=== PATIENT | female | born 1955 | race African-American/Black ===

== ENCOUNTER 2017-07-05 07:55 | Inpatient (IN) ==
[2017-07-05] MEDS ORDERED: VANCOMYCIN INJ 1,500 MG in SODIUM CHLORIDE 0.9% 500 ML IV STA (08:31)
[2017-07-05 09:15] LABS: Basophils % 0.4 % (0.0-0.8); Eosinophils # 0.1 10*3/uL (0.0-0.87); Eosinophils % 0.5 % (0.00-10.9); Hematocrit 37.2 VOL% (35.7-47.0); Hemoglobin 11.9 GM/DL (12.0-16.0); Immature Granulocytes % 0.6 %; Immature Granulocytes Absolute 0.06 #; Lymphocytes # 1.1 10*3/uL (1.4-4.0); Lymphocytes % 11.2 % (21.3-54.2); Mean Corpuscular Hemoglobin 32 PG (27-34); Mean Corpuscular Volume 99.2 FL (87-102); Mean Platelet Volume 10.9 FL (9.6-12.0); Monocytes # 1.3 10*3/uL (0.11-0.8); Monocytes % 13.1 % (1.7-12.7); Neutrophils # 7.3 10*3/uL (1.4-7.4); Neutrophils % 74.2 % (38.7-73.9); Platelet Count 222 T/CUMM (130-400); Red Blood Count 3.75 MC/CUMM (3.8-5.5); Red Cell Distribution Width 13.4 % (9.3-17.3); White Blood Count 9.9 T/CUMM (4-12)
[2017-07-05] MEDS ORDERED: VANCOMYCIN 1,000 MG VIAL ONE (09:20)
[2017-07-05 09:51] LABS: Lactic Acid 1.4 MMOL/L (0.4-2.0)
[2017-07-05 09:52] LABS: Albumin 2.7 G/DL (3.4-5.0); Bilirubin,Total 1.2 MG/DL (0.2-1.0); Calcium 9.7 MG/DL (8.5-10.1); Osmolality,Calculated 274.4 MOS/KG (273-304); Potassium 3.8 MMOL/L (3.5-5.1); Total Protein 8.5 G/DL (6.4-8.3)
[2017-07-05] MEDS ORDERED: GLUCAGON 1 MG VIAL IM PRN (11:02)
[2017-07-05] MEDS ORDERED: ONDANSETRON 4 MG/2 ML VIAL IV PRN (11:02)
[2017-07-05] MEDS ORDERED: DEXTROSE 50% 25 GM/50 ML VIAL IV PRN (11:02)
[2017-07-05 11:16] LABS: INR 1.5; PT Patient Result 15.3 SECS
[2017-07-05] MEDS ORDERED: ENOXAPARIN 30 MG/0.3 ML SYRINGE SUBCUT SCH (11:30)
[2017-07-05] MEDS: CALCIUM ACETATE 667 MG CAPSULE PO SCH ×2 (14:08→16:35)
[2017-07-05] MEDS: INSULIN REGULAR 100 UNIT/ML SUBCUT SCH ×3 (14:08→21:59)
[2017-07-05] MEDS: ACETAMINOPHEN 325 MG TABLET PO PRN ×2 (14:31→21:58)
[2017-07-05] MEDS: WARFARIN 5 MG TABLET PO SCH (17:19)
[2017-07-05] MEDS: CARVEDILOL 25 MG TABLET PO SCH (21:59)
[2017-07-05] MEDS: INSULIN NPH/REGULAR 70/30 100 UNIT/ML SUBCUT SCH (22:00)
[2017-07-06] MEDS: ACETAMINOPHEN 325 MG TABLET PO PRN ×3 (01:37→21:21)
[2017-07-06] MEDS ORDERED: ACETAMINOPHEN 325 MG TABLET PO ONE (05:40)
[2017-07-06 05:55] LABS: Basophils % 0.3 % (0.0-0.8); Eosinophils # 0.1 10*3/uL (0.0-0.87); Eosinophils % 1.4 % (0.00-10.9); Hematocrit 30.5 VOL% (35.7-47.0); Hemoglobin 9.7 GM/DL (12.0-16.0); Immature Granulocytes % 0.6 %; Immature Granulocytes Absolute 0.05 #; Lymphocytes # 1.1 10*3/uL (1.4-4.0); Lymphocytes % 12.3 % (21.3-54.2); Mean Corpuscular HGB Conc 31.8 GM/DL (32-36); Mean Corpuscular Hemoglobin 31 PG (27-34); Mean Corpuscular Volume 98.1 FL (87-102); Mean Platelet Volume 10.9 FL (9.6-12.0); Monocytes # 1.2 10*3/uL (0.11-0.8); Neutrophils # 6.2 10*3/uL (1.4-7.4); Neutrophils % 71.4 % (38.7-73.9); Platelet Count 198 T/CUMM (130-400); Red Blood Count 3.11 MC/CUMM (3.8-5.5); Red Cell Distribution Width 13.5 % (9.3-17.3); White Blood Count 8.7 T/CUMM (4-12)
[2017-07-06 06:02] LABS: INR 1.3; PT Patient Result 13.6 SECS
[2017-07-06 07:04] LABS: Osmolality,Calculated 277.4 MOS/KG (273-304); Potassium 3.8 MMOL/L (3.5-5.1)
[2017-07-06] MEDS: INSULIN NPH/REGULAR 70/30 100 UNIT/ML SUBCUT SCH ×2 (08:25→21:19)
[2017-07-06] MEDS: amLODIPine 10 MG TABLET PO SCH (08:25)
[2017-07-06] MEDS: INSULIN REGULAR 100 UNIT/ML SUBCUT SCH ×4 (08:25→21:20)
[2017-07-06] MEDS: CALCIUM ACETATE 667 MG CAPSULE PO SCH ×3 (08:25→16:42)
[2017-07-06] MEDS: GABAPENTIN 100 MG CAPSULE PO SCH (08:25)
[2017-07-06] MEDS: CARVEDILOL 25 MG TABLET PO SCH ×2 (08:25→21:21)
[2017-07-06] MEDS: CLOPIDOGREL 75 MG TABLET PO SCH (08:26)
[2017-07-06] MEDS: ALLOPURINOL 100 MG TABLET PO SCH (08:26)
[2017-07-06] MEDS: PANTOPRAZOLE 40 MG TABLET PO SCH (08:26)
[2017-07-06] MEDS ORDERED: GENTAMICIN INJ 100 MG in PREMIX 1 EACH IV ONE (09:00)
[2017-07-06] MEDS ORDERED: VANCOMYCIN INJ 1,000 MG in SODIUM CHLORIDE 0.9% 250 ML IV ONE (09:00)
[2017-07-06] MEDS ORDERED: HEPARIN 10,000 UNIT/10 ML VIAL IV PRN (14:25)
[2017-07-06] MEDS ORDERED: ALUMINUM/MAGNES/SIMETH MAX STR 30 ML UDCUP PO PRN (14:27)
[2017-07-06] MEDS ORDERED: VANCOMYCIN INJ 1,000 MG in SODIUM CHLORIDE 0.9% 250 ML IV PRN (14:30)
[2017-07-06] MEDS ORDERED: GENTAMICIN INJ 80 MG in PREMIX 1 EACH IV PRN (14:31)
[2017-07-06] MEDS: WARFARIN 5 MG TABLET PO SCH (17:36)
[2017-07-07] MEDS: INSULIN REGULAR 100 UNIT/ML SUBCUT SCH ×2 (07:56→12:58)
[2017-07-07] MEDS: amLODIPine 10 MG TABLET PO SCH (09:03)
[2017-07-07] MEDS: CARVEDILOL 25 MG TABLET PO SCH (09:03)
[2017-07-07] MEDS: ALLOPURINOL 100 MG TABLET PO SCH (09:03)
[2017-07-07] MEDS: CLOPIDOGREL 75 MG TABLET PO SCH (09:03)
[2017-07-07] MEDS: GABAPENTIN 100 MG CAPSULE PO SCH (09:03)
[2017-07-07] MEDS: CALCIUM ACETATE 667 MG CAPSULE PO SCH ×2 (09:03→12:29)
[2017-07-07] MEDS: PANTOPRAZOLE 40 MG TABLET PO SCH (09:04)
[2017-07-07] MEDS: INSULIN NPH/REGULAR 70/30 100 UNIT/ML SUBCUT SCH (09:06)
[2017-07-07 13:58] VITALS: BP 99/77
[2017-07-07] MEDS ORDERED: MICONAZOLE 2% VAG CREAM 45 GM TUBE VAG SCH (21:00)
== END 2017-07-07 14:49 | disposition home health service (06) | DRG 314 ==
LOC: EDBD → EDUNIT# → N.ED 07:55 → N.EDINP 10:15 → N.5E 13:59
PROVIDERS: ADMIT Hospitalist; ATTEND Hospitalist

== ENCOUNTER 2017-07-11 11:34 | Inpatient (IN) ==
[2017-07-11 13:07] LABS: Basophils % 0.3 % (0.0-0.8); Eosinophils # 0.3 10*3/uL (0.0-0.87); Hematocrit 30.6 VOL% (35.7-47.0); Hemoglobin 9.5 GM/DL (12.0-16.0); Immature Granulocytes % 2.2 %; Lymphocytes % 11.1 % (21.3-54.2); Mean Corpuscular Hemoglobin 31 PG (27-34); Monocytes # 0.5 10*3/uL (0.11-0.8); Monocytes % 5.2 % (1.7-12.7); Neutrophils # 7.1 10*3/uL (1.4-7.4); Neutrophils % 78.2 % (38.7-73.9); Platelet Count 346 T/CUMM (130-400); Red Blood Count 3.09 MC/CUMM (3.8-5.5); Red Cell Distribution Width 13.7 % (9.3-17.3)
[2017-07-11 13:40] LABS: Calcium 10.1 MG/DL (8.5-10.1); Osmolality,Calculated 278.8 MOS/KG (273-304); Potassium 3.2 MMOL/L (3.5-5.1)
[2017-07-11] MEDS ORDERED: ACETAMINOPHEN 325 MG TABLET PO PRN ×2 (14:02)
[2017-07-11] MEDS ORDERED: DOCUSATE SODIUM 100 MG CAPSULE PO PRN (14:02)
[2017-07-11] MEDS ORDERED: MORPHINE 2 MG/1 ML SYRINGE IV PRN (14:02)
[2017-07-11] MEDS ORDERED: ONDANSETRON 4 MG/2 ML VIAL IV PRN (14:02)
[2017-07-11] MEDS ORDERED: DEXTROSE 50% 25 GM/50 ML VIAL IV PRN (14:02)
[2017-07-11] MEDS ORDERED: GLUCAGON 1 MG VIAL IM PRN (14:02)
[2017-07-11] MEDS ORDERED: guaiFENesin/DM ER 600-30 MG TABLET PO PRN (14:02)
[2017-07-11] MEDS ORDERED: POTASSIUM CHLORIDE 20 MEQ TABLET PO PRN (14:06)
[2017-07-11] MEDS ORDERED: VANCOMYCIN 1,000 MG VIAL IV PRN (14:07)
[2017-07-11] MEDS ORDERED: GENTAMICIN IV PRN (14:07)
[2017-07-11] MEDS ORDERED: PANTOPRAZOLE 40 MG TABLET PO SCH (14:30)
[2017-07-11] MEDS ORDERED: GENTAMICIN 80 MG/2 ML VIAL IM STA (17:35)
[2017-07-11] MEDS ORDERED: GENTAMICIN INJ 80 MG in PREMIX 1 EACH IV SCH (18:00)
[2017-07-11] MEDS: CALCIUM ACETATE 667 MG CAPSULE PO SCH (18:00)
[2017-07-11] MEDS ORDERED: VANCOMYCIN INJ 1,000 MG in SODIUM CHLORIDE 0.9% 250 ML IV SCH (18:00)
[2017-07-11] MEDS: CARVEDILOL 25 MG TABLET PO SCH ×2 (19:41→21:05)
[2017-07-11] MEDS: CLOPIDOGREL 75 MG TABLET PO SCH (19:42)
[2017-07-11] MEDS: amLODIPine 10 MG TABLET PO SCH (19:42)
[2017-07-11] MEDS: PANTOPRAZOLE 40 MG TABLET PO SCH (19:43)
[2017-07-11] MEDS: ALLOPURINOL 100 MG TABLET PO SCH (19:43)
[2017-07-11] MEDS: GABAPENTIN 100 MG CAPSULE PO SCH (19:43)
[2017-07-11] MEDS: ENOXAPARIN 30 MG/0.3 ML SYRINGE SUBCUT SCH (21:08)
[2017-07-11] MEDS: INSULIN NPH/REGULAR 70/30 100 UNIT/ML SUBCUT SCH (21:09)
[2017-07-11] MEDS: INSULIN LISPRO 100 UNIT/ML SUBCUT SCH (23:56)
[2017-07-12 05:48] LABS: Basophils % 0.6 % (0.0-0.8); Eosinophils # 0.2 10*3/uL (0.0-0.87); Eosinophils % 2.8 % (0.00-10.9); Hematocrit 28.8 VOL% (35.7-47.0); Hemoglobin 8.7 GM/DL (12.0-16.0); Immature Granulocytes % 2.2 %; Immature Granulocytes Absolute 0.16 #; Lymphocytes # 1.1 10*3/uL (1.4-4.0); Lymphocytes % 15.5 % (21.3-54.2); Mean Corpuscular HGB Conc 30.2 GM/DL (32-36); Mean Corpuscular Hemoglobin 31 PG (27-34); Mean Corpuscular Volume 101.4 FL (87-102); Mean Platelet Volume 10.5 FL (9.6-12.0); Monocytes # 0.6 10*3/uL (0.11-0.8); Monocytes % 7.6 % (1.7-12.7); Neutrophils # 5.2 10*3/uL (1.4-7.4); Neutrophils % 71.3 % (38.7-73.9); Platelet Count 335 T/CUMM (130-400); Red Blood Count 2.84 MC/CUMM (3.8-5.5); Red Cell Distribution Width 13.9 % (9.3-17.3); White Blood Count 7.3 T/CUMM (4-12)
[2017-07-12 06:16] LABS: Calcium 8.8 MG/DL (8.5-10.1); Osmolality,Calculated 284.8 MOS/KG (273-304); Potassium 4.2 MMOL/L (3.5-5.1)
[2017-07-12] MEDS: PANTOPRAZOLE 40 MG TABLET PO SCH (08:49)
[2017-07-12] MEDS: ALLOPURINOL 100 MG TABLET PO SCH (08:49)
[2017-07-12] MEDS: GABAPENTIN 100 MG CAPSULE PO SCH (08:49)
[2017-07-12] MEDS: amLODIPine 10 MG TABLET PO SCH (08:49)
[2017-07-12] MEDS: CLOPIDOGREL 75 MG TABLET PO SCH (08:49)
[2017-07-12] MEDS: CARVEDILOL 25 MG TABLET PO SCH ×2 (08:49→21:04)
[2017-07-12] MEDS: CALCIUM ACETATE 667 MG CAPSULE PO SCH ×3 (08:49→17:10)
[2017-07-12] MEDS: INSULIN NPH/REGULAR 70/30 100 UNIT/ML SUBCUT SCH ×2 (08:51→21:05)
[2017-07-12] MEDS: INSULIN LISPRO 100 UNIT/ML SUBCUT SCH ×2 (08:51→16:30)
[2017-07-12] MEDS: ENOXAPARIN 30 MG/0.3 ML SYRINGE SUBCUT SCH (21:04)
[2017-07-13] MEDS: CARVEDILOL 25 MG TABLET PO SCH ×2 (09:02→21:35)
[2017-07-13] MEDS: CALCIUM ACETATE 667 MG CAPSULE PO SCH ×3 (09:02→17:30)
[2017-07-13] MEDS: amLODIPine 10 MG TABLET PO SCH (09:02)
[2017-07-13] MEDS: GABAPENTIN 100 MG CAPSULE PO SCH (09:02)
[2017-07-13] MEDS: PANTOPRAZOLE 40 MG TABLET PO SCH (09:03)
[2017-07-13] MEDS: CLOPIDOGREL 75 MG TABLET PO SCH (09:03)
[2017-07-13] MEDS: ALLOPURINOL 100 MG TABLET PO SCH (09:03)
[2017-07-13] MEDS: INSULIN NPH/REGULAR 70/30 100 UNIT/ML SUBCUT SCH ×2 (09:11→21:37)
[2017-07-13] MEDS: INSULIN LISPRO 100 UNIT/ML SUBCUT SCH ×2 (09:11→17:23)
[2017-07-13] MEDS ORDERED: PANTOPRAZOLE 40 MG TABLET PO ONE (10:38)
[2017-07-13] MEDS ORDERED: GENTAMICIN 80 MG/2 ML VIAL IM ONE (13:00)
[2017-07-13] MEDS: ENOXAPARIN 30 MG/0.3 ML SYRINGE SUBCUT SCH (21:37)
[2017-07-14] MEDS ORDERED: PANTOPRAZOLE 40 MG TABLET PO ONE (06:00)
[2017-07-14] MEDS: INSULIN LISPRO 100 UNIT/ML SUBCUT SCH ×2 (07:24→17:50)
[2017-07-14] MEDS: amLODIPine 10 MG TABLET PO SCH ×2 (07:30→10:06)
[2017-07-14] MEDS ORDERED: HEPARIN 5,000 UNIT/1 ML VIAL ONE (07:30)
[2017-07-14] MEDS: CARVEDILOL 25 MG TABLET PO SCH ×3 (07:31→21:15)
[2017-07-14] MEDS: CALCIUM ACETATE 667 MG CAPSULE PO SCH ×3 (07:40→17:40)
[2017-07-14] MEDS ORDERED: DEXAMETHASONE 10 MG/1 ML VIAL ONE (09:46)
[2017-07-14] MEDS ORDERED: fentaNYL 100 MCG/2 ML VIAL ONE (09:46)
[2017-07-14] MEDS ORDERED: MIDAZOLAM 2 MG/2 ML VIAL ONE (09:46)
[2017-07-14] MEDS ORDERED: PROPOFOL 200 MG/20 ML VIAL IV ONE (09:46)
[2017-07-14] MEDS ORDERED: ONDANSETRON 4 MG/2 ML VIAL ONE (09:47)
[2017-07-14] MEDS: INSULIN NPH/REGULAR 70/30 100 UNIT/ML SUBCUT SCH ×2 (10:05→23:26)
[2017-07-14] MEDS: ALLOPURINOL 100 MG TABLET PO SCH (10:06)
[2017-07-14] MEDS: PANTOPRAZOLE 40 MG TABLET PO SCH (10:06)
[2017-07-14] MEDS: GABAPENTIN 100 MG CAPSULE PO SCH (10:06)
[2017-07-14] MEDS: CLOPIDOGREL 75 MG TABLET PO SCH (10:06)
[2017-07-14] MEDS: ENOXAPARIN 30 MG/0.3 ML SYRINGE SUBCUT SCH (21:15)
[2017-07-15] MEDS: INSULIN LISPRO 100 UNIT/ML SUBCUT SCH ×2 (08:20→16:24)
[2017-07-15] MEDS: GABAPENTIN 100 MG CAPSULE PO SCH (08:21)
[2017-07-15] MEDS: CLOPIDOGREL 75 MG TABLET PO SCH (08:21)
[2017-07-15] MEDS: CALCIUM ACETATE 667 MG CAPSULE PO SCH ×3 (08:21→16:53)
[2017-07-15] MEDS: ALLOPURINOL 100 MG TABLET PO SCH (08:21)
[2017-07-15] MEDS: amLODIPine 10 MG TABLET PO SCH (08:21)
[2017-07-15] MEDS: INSULIN NPH/REGULAR 70/30 100 UNIT/ML SUBCUT SCH ×2 (08:21→21:15)
[2017-07-15] MEDS: PANTOPRAZOLE 40 MG TABLET PO SCH (08:21)
[2017-07-15] MEDS: CARVEDILOL 25 MG TABLET PO SCH ×2 (08:21→21:15)
[2017-07-15] MEDS ORDERED: GENTAMICIN INJ 80 MG in PREMIX 1 EACH IV ONE (16:13)
[2017-07-15] MEDS: ENOXAPARIN 30 MG/0.3 ML SYRINGE SUBCUT SCH (21:15)
[2017-07-16] MEDS: INSULIN LISPRO 100 UNIT/ML SUBCUT SCH ×2 (07:18→17:14)
[2017-07-16] MEDS: CARVEDILOL 25 MG TABLET PO SCH (08:21)
[2017-07-16] MEDS: INSULIN NPH/REGULAR 70/30 100 UNIT/ML SUBCUT SCH (08:21)
[2017-07-16] MEDS: GABAPENTIN 100 MG CAPSULE PO SCH (08:21)
[2017-07-16] MEDS: amLODIPine 10 MG TABLET PO SCH (08:21)
[2017-07-16] MEDS: ALLOPURINOL 100 MG TABLET PO SCH (08:21)
[2017-07-16] MEDS: PANTOPRAZOLE 40 MG TABLET PO SCH (08:21)
[2017-07-16] MEDS: CLOPIDOGREL 75 MG TABLET PO SCH (08:21)
[2017-07-16] MEDS: CALCIUM ACETATE 667 MG CAPSULE PO SCH ×3 (08:21→17:14)
[2017-07-16 16:20] VITALS: BP 122/64
== END 2017-07-16 18:35 | disposition home or self-care (01) | DRG 314 ==
LOC: EDBD → EDUNIT# → N.ED 11:34 → N.EDINP 12:25 → SUATTDRO 12:25 → N.3E 17:03
PROVIDERS: ADMIT Internal Medicine Infectious Disease; ATTEND Family Medicine

== ENCOUNTER 2017-11-16 07:16 | Observation (INO) ==
[2017-11-16 09:18] LABS: Calcium 8.4 MG/DL (8.5-10.1); Osmolality,Calculated 294.8 MOS/KG (273-304); Potassium 4.8 MMOL/L (3.5-5.1)
[2017-11-16] MEDS ORDERED: DEXTROSE 50% 25 GM/50 ML VIAL IV PRN (10:40)
[2017-11-16] MEDS ORDERED: ONDANSETRON 4 MG/2 ML VIAL IV PRN (10:40)
[2017-11-16] MEDS ORDERED: GLUCAGON 1 MG VIAL IM PRN (10:40)
[2017-11-16] MEDS: CALCIUM CARBONATE CHEW 500 MG TABLET PO SCH ×3 (13:42→20:37)
[2017-11-16] MEDS: INSULIN REGULAR 100 UNIT/ML SUBCUT SCH ×3 (13:45→20:38)
[2017-11-16] MEDS: ACETAMINOPHEN 325 MG TABLET PO PRN (20:37)
[2017-11-16] MEDS: INSULIN NPH/REGULAR 70/30 100 UNIT/ML SUBCUT SCH (20:38)
[2017-11-17 07:19] LABS: Basophils % 0.4 % (0.0-0.8); Eosinophils # 0.2 10*3/uL (0.0-0.87); Eosinophils % 2.6 % (0.00-10.9); Hematocrit 35.8 VOL% (35.7-47.0); Hemoglobin 11.5 GM/DL (12.0-16.0); Immature Granulocytes % 0.6 %; Immature Granulocytes Absolute 0.05 #; Lymphocytes # 2.9 10*3/uL (1.4-4.0); Lymphocytes % 32.7 % (21.3-54.2); Mean Corpuscular HGB Conc 32.1 GM/DL (32-36); Mean Corpuscular Hemoglobin 32 PG (27-34); Mean Corpuscular Volume 98.4 FL (87-102); Mean Platelet Volume 9.9 FL (9.6-12.0); Monocytes # 0.8 10*3/uL (0.11-0.8); Monocytes % 8.4 % (1.7-12.7); Neutrophils # 4.9 10*3/uL (1.4-7.4); Neutrophils % 55.3 % (38.7-73.9); Platelet Count 278 T/CUMM (130-400); Red Blood Count 3.64 MC/CUMM (3.8-5.5); Red Cell Distribution Width 15.2 % (9.3-17.3); White Blood Count 8.9 T/CUMM (4-12)
[2017-11-17 08:01] LABS: Albumin 2.8 G/DL (3.4-5.0); Bilirubin,Total 0.6 MG/DL (0.2-1.0); Calcium 8.8 MG/DL (8.5-10.1); Osmolality,Calculated 296.5 MOS/KG (273-304); Potassium 4.7 MMOL/L (3.5-5.1); Total Protein 6.2 G/DL (6.4-8.3)
[2017-11-17] MEDS: INSULIN NPH/REGULAR 70/30 100 UNIT/ML SUBCUT SCH ×2 (09:03→22:08)
[2017-11-17] MEDS: PANTOPRAZOLE 40 MG TABLET PO SCH (09:05)
[2017-11-17] MEDS: GABAPENTIN 100 MG CAPSULE PO SCH (09:05)
[2017-11-17] MEDS: CALCIUM CARBONATE CHEW 500 MG TABLET PO SCH ×4 (09:05→22:08)
[2017-11-17] MEDS: ALLOPURINOL 100 MG TABLET PO SCH (09:05)
[2017-11-17] MEDS: amLODIPine 10 MG TABLET PO SCH (09:05)
[2017-11-17] MEDS: INSULIN REGULAR 100 UNIT/ML SUBCUT SCH ×4 (09:05→22:07)
[2017-11-17] MEDS ORDERED: DIPHENOXYLATE/ATROPINE 2.5-0.025 MG TABLET PO PRN (14:11)
[2017-11-17] MEDS: ACETAMINOPHEN 325 MG TABLET PO PRN (22:08)
[2017-11-18 08:20] LABS: Basophils % 0.5 % (0.0-0.8); Eosinophils # 0.1 10*3/uL (0.0-0.87); Eosinophils % 0.9 % (0.00-10.9); Hematocrit 36.4 VOL% (35.7-47.0); Hemoglobin 11.2 GM/DL (12.0-16.0); Immature Granulocytes % 0.7 %; Immature Granulocytes Absolute 0.05 #; Lymphocytes # 1.1 10*3/uL (1.4-4.0); Lymphocytes % 15.3 % (21.3-54.2); Mean Corpuscular HGB Conc 30.8 GM/DL (32-36); Mean Corpuscular Hemoglobin 31 PG (27-34); Mean Platelet Volume 10.1 FL (9.6-12.0); Monocytes # 0.6 10*3/uL (0.11-0.8); Monocytes % 7.8 % (1.7-12.7); Neutrophils # 5.6 10*3/uL (1.4-7.4); Neutrophils % 74.8 % (38.7-73.9); Platelet Count 254 T/CUMM (130-400); Red Blood Count 3.57 MC/CUMM (3.8-5.5); Red Cell Distribution Width 15.1 % (9.3-17.3); White Blood Count 7.4 T/CUMM (4-12)
[2017-11-18] MEDS: INSULIN REGULAR 100 UNIT/ML SUBCUT SCH ×4 (08:43→21:17)
[2017-11-18] MEDS: INSULIN NPH/REGULAR 70/30 100 UNIT/ML SUBCUT SCH ×3 (08:43→21:17)
[2017-11-18] MEDS: [UNRECOGNIZED DRUG - OTHER] VAG SCH ×2 (08:43→08:45)
[2017-11-18] MEDS: CALCIUM CARBONATE CHEW 500 MG TABLET PO SCH ×5 (08:43→21:17)
[2017-11-18] MEDS: CLOTRIMAZOLE VAG SCH ×2 (08:43→08:45)
[2017-11-18] MEDS: GABAPENTIN 100 MG CAPSULE PO SCH (08:44)
[2017-11-18] MEDS: amLODIPine 10 MG TABLET PO SCH (08:44)
[2017-11-18] MEDS: ALLOPURINOL 100 MG TABLET PO SCH (08:44)
[2017-11-18] MEDS: PANTOPRAZOLE 40 MG TABLET PO SCH (08:44)
[2017-11-18 08:57] LABS: Calcium 8.4 MG/DL (8.5-10.1); Osmolality,Calculated 299.7 MOS/KG (273-304); Potassium 4.6 MMOL/L (3.5-5.1)
[2017-11-18] MEDS ORDERED: VANCOMYCIN INJ 1,000 MG in SODIUM CHLORIDE 0.9% 250 ML IV ONE (10:54)
[2017-11-18] MEDS ORDERED: DIAZEPAM 5 MG TABLET PO ONE (11:04)
[2017-11-18] MEDS ORDERED: LEVOFLOXACIN 500 MG TABLET PO ONE (11:04)
[2017-11-18] MEDS ORDERED: fentaNYL 100 MCG/2 ML VIAL IV ONE (11:12)
[2017-11-18] MEDS ORDERED: MIDAZOLAM 2 MG/2 ML VIAL IV ONE (11:12)
[2017-11-18] MEDS ORDERED: HEPARIN LOCK FLUSH 500 UNIT/5 ML SYRINGE IV ONE (12:03)
[2017-11-18] MEDS ORDERED: HEPARIN 10,000 UNIT/10 ML VIAL IV PRN (16:16)
[2017-11-18] MEDS: ACETAMINOPHEN 325 MG TABLET PO PRN (19:45)
[2017-11-19] MEDS: ACETAMINOPHEN 325 MG TABLET PO PRN (01:49)
[2017-11-19 06:08] LABS: Basophils % 0.4 % (0.0-0.8); Eosinophils # 0.1 10*3/uL (0.0-0.87); Eosinophils % 1.4 % (0.00-10.9); Hemoglobin 10.9 GM/DL (12.0-16.0); Immature Granulocytes % 0.9 %; Immature Granulocytes Absolute 0.07 #; Lymphocytes % 12.9 % (21.3-54.2); Mean Corpuscular HGB Conc 31.1 GM/DL (32-36); Mean Corpuscular Hemoglobin 31 PG (27-34); Mean Corpuscular Volume 98.9 FL (87-102); Mean Platelet Volume 10.4 FL (9.6-12.0); Monocytes # 0.5 10*3/uL (0.11-0.8); Neutrophils # 6.2 10*3/uL (1.4-7.4); Neutrophils % 78.4 % (38.7-73.9); Platelet Count 223 T/CUMM (130-400); Red Blood Count 3.54 MC/CUMM (3.8-5.5); Red Cell Distribution Width 15.6 % (9.3-17.3)
[2017-11-19 06:45] LABS: Calcium 8.2 MG/DL (8.5-10.1); Osmolality,Calculated 291.7 MOS/KG (273-304); Potassium 5.1 MMOL/L (3.5-5.1)
[2017-11-19] MEDS: GABAPENTIN 100 MG CAPSULE PO SCH (08:56)
[2017-11-19] MEDS: INSULIN NPH/REGULAR 70/30 100 UNIT/ML SUBCUT SCH (08:56)
[2017-11-19] MEDS: PANTOPRAZOLE 40 MG TABLET PO SCH (08:57)
[2017-11-19] MEDS: amLODIPine 10 MG TABLET PO SCH (08:57)
[2017-11-19] MEDS: CALCIUM CARBONATE CHEW 500 MG TABLET PO SCH ×2 (08:57→12:42)
[2017-11-19] MEDS: ALLOPURINOL 100 MG TABLET PO SCH (08:57)
[2017-11-19] MEDS: INSULIN REGULAR 100 UNIT/ML SUBCUT SCH ×2 (08:58→12:42)
[2017-11-19 10:01] VITALS: BP 119/81
== END 2017-11-19 16:19 | disposition home or self-care (01) ==
LOC: N.EDINP 07:16 → N.ED 07:16 → SUATTDRO 09:46 → N.5E 12:55
PROVIDERS: ADMIT Family Medicine; ATTEND Internal Medicine

== ENCOUNTER 2019-08-04 11:29 | Inpatient (IN) ==
[2019-08-04] MEDS ORDERED: NITROGLYCERIN 2% OINT 1 INCH/GM PACK TOP STA (12:14)
[2019-08-04] MEDS ORDERED: dilTIAZem Drip 125 MG/125 ML PREMIX IV ONE (12:14)
[2019-08-04] MEDS ORDERED: DILTIAZEM 50 MG/10 ML VIAL IV STA (12:14)
[2019-08-04] MEDS ORDERED: ASPIRIN 325 MG TABLET PO STA (12:14)
[2019-08-04] MEDS ORDERED: NITROGLYCERIN 2% OINT 1 INCH/GM PACK TOP ONE (12:15)
[2019-08-04] MEDS ORDERED: NITROGLYCERIN SL 0.4 MG TABLET SL STA (12:16)
[2019-08-04] MEDS ORDERED: ONDANSETRON 4 MG/2 ML VIAL ONE (12:38)
[2019-08-04 12:56] LABS: Basophils % 0.4 % (0.0-0.8); Eosinophils % 0.2 % (0.00-10.9); Hematocrit 37.4 VOL% (35.7-47.0); Hemoglobin 11.8 GM/DL (12.0-16.0); Immature Granulocytes % 0.4 %; Immature Granulocytes Absolute 0.04 #; Lymphocytes # 0.6 10*3/uL (1.4-4.0); Lymphocytes % 6.7 % (21.3-54.2); Mean Corpuscular HGB Conc 31.6 GM/DL (32-36); Mean Corpuscular Volume 98.9 FL (87-102); Mean Platelet Volume 10.8 FL (9.6-12.0); Monocytes % 4.6 % (1.7-12.7); Neutrophils % 87.7 % (38.7-73.9); Platelet Count 238 T/CUMM (130-400); Red Blood Count 3.78 MC/CUMM (3.8-5.5); Red Cell Distribution Width 13.9 % (9.3-17.3); White Blood Count 9.6 T/CUMM (4-12)
[2019-08-04 13:15] LABS: Albumin 2.8 G/DL (3.4-5.0); Bilirubin,Total 0.8 MG/DL (0.2-1.0); Osmolality,Calculated 278.1 MOS/KG (273-304); Total Protein 7.5 G/DL (6.4-8.3)
[2019-08-04] MEDS: dilTIAZem Drip 125 MG/125 ML PREMIX IV SCH (14:00)
[2019-08-04] MEDS ORDERED: METOPROLOL TARTRATE 5 MG/5 ML VIAL IV ONE (14:18)
[2019-08-04] MEDS ORDERED: ALBUTEROL 2.5 MG/3 ML NEB RESP TX PRN (14:19)
[2019-08-04] MEDS ORDERED: MORPHINE 4 MG/1 ML VIAL IV PRN (14:19)
[2019-08-04] MEDS ORDERED: GLUCAGON 1 MG VIAL IM PRN (14:19)
[2019-08-04] MEDS ORDERED: ONDANSETRON 4 MG/2 ML VIAL IV PRN (14:19)
[2019-08-04] MEDS ORDERED: ACETAMINOPHEN 325 MG TABLET PO PRN (14:19)
[2019-08-04] MEDS ORDERED: PROMETHAZINE 25 MG/1 ML VIAL IM PRN (14:19)
[2019-08-04] MEDS ORDERED: DEXTROSE 50% 25 GM/50 ML VIAL IV PRN (14:19)
[2019-08-04 14:21] LABS: INR 1.2
[2019-08-04] MEDS ORDERED: METOPROLOL TARTRATE 5 MG/5 ML VIAL IV STA (14:28)
[2019-08-04] MEDS ORDERED: METOPROLOL TARTRATE 50 MG TABLET PO ONE (14:28)
[2019-08-04] MEDS ORDERED: amLODIPine 5 MG TABLET PO STA (14:29)
[2019-08-04 16:58] LABS: Free T4 (Free Thyroxine) 1.02 NG/DL (0.76-1.46)
[2019-08-04] MEDS: INSULIN REGULAR 100 UNIT/ML SUBCUT SCH ×2 (17:54→21:51)
[2019-08-04] MEDS: HEPARIN 5,000 UNIT/1 ML VIAL SUBCUT SCH (17:55)
[2019-08-04] MEDS: hydrALAZINE 25 MG TABLET PO SCH (21:51)
[2019-08-04] MEDS: METOPROLOL TARTRATE 50 MG TABLET PO SCH (21:51)
[2019-08-05] MEDS: HEPARIN 5,000 UNIT/1 ML VIAL SUBCUT SCH ×2 (00:56→10:10)
[2019-08-05 04:46] LABS: Basophils % 0.5 % (0.0-0.8); Eosinophils # 0.1 10*3/uL (0.0-0.87); Eosinophils % 1.2 % (0.00-10.9); Hematocrit 34.5 VOL% (35.7-47.0); Hemoglobin 10.7 GM/DL (12.0-16.0); Immature Granulocytes % 0.4 %; Immature Granulocytes Absolute 0.03 #; Lymphocytes # 0.9 10*3/uL (1.4-4.0); Lymphocytes % 10.4 % (21.3-54.2); Mean Corpuscular Volume 100.9 FL (87-102); Mean Platelet Volume 10.4 FL (9.6-12.0); Monocytes % 10.7 % (1.7-12.7); Neutrophils % 76.8 % (38.7-73.9); Platelet Count 208 T/CUMM (130-400); Red Blood Count 3.42 MC/CUMM (3.8-5.5); Red Cell Distribution Width 14.2 % (9.3-17.3); White Blood Count 8.3 T/CUMM (4-12)
[2019-08-05 05:14] LABS: Calcium 9.1 MG/DL (8.5-10.1); Osmolality,Calculated 285.1 MOS/KG (273-304); Risk Ratio 4.4; VLDL CHOLESTEROL 16.4 MG/DL
[2019-08-05 06:28] LABS: Eosinophils 1 % (0-10); Hypochromasia 1+; Lymphocytes 7 % (20-55); Segmented Neutrophils 85 % (50-85); Total Cells Counted 100
[2019-08-05 06:29] LABS: Macrocytosis Slight; Platelet Estimate Normal
[2019-08-05] MEDS ORDERED: MAGNESIUM SULF RIDER 2 GM in PREMIX 1 EACH IV ONE (07:49)
[2019-08-05] MEDS ORDERED: allopurinoL 100 MG TABLET PO SCH (09:00)
[2019-08-05] MEDS ORDERED: amLODIPine 10 MG TABLET PO SCH (09:00)
[2019-08-05] MEDS ORDERED: INSULIN NPH/REGULAR 70/30 100 UNIT/ML SUBCUT SCH ×2 (09:00→21:00)
[2019-08-05] MEDS ORDERED: ROSUVASTATIN 20 MG TABLET PO SCH (09:00)
[2019-08-05] MEDS ORDERED: PANTOPRAZOLE 40 MG TABLET PO SCH ×2 (09:00)
[2019-08-05] MEDS: hydrALAZINE 25 MG TABLET PO SCH (10:10)
[2019-08-05] MEDS: INSULIN REGULAR 100 UNIT/ML SUBCUT SCH ×2 (10:10→13:30)
[2019-08-05] MEDS: METOPROLOL TARTRATE 50 MG TABLET PO SCH (10:11)
[2019-08-05] MEDS ORDERED: METOPROLOL TARTRATE 50 MG TABLET PO ONE (10:58)
[2019-08-05] MEDS ORDERED: ASPIRIN EC 81 MG TABLET PO SCH (11:03)
[2019-08-05] MEDS ORDERED: CALCIUM CARBONATE CHEW 500 MG TABLET PO SCH (11:30)
[2019-08-05 13:13] VITALS: BP 142/97
[2019-08-05] MEDS ORDERED: APIXABAN 5 MG TABLET PO SCH (13:30)
[2019-08-05] MEDS: dilTIAZem Drip 125 MG/125 ML PREMIX IV SCH (13:33)
[2019-08-05] MEDS ORDERED: METOPROLOL TARTRATE 100 MG TABLET PO SCH (21:00)
[2019-08-05] MEDS ORDERED: METOPROLOL TARTRATE 50 MG TABLET PO SCH (21:00)
== END 2019-08-05 16:10 | disposition home or self-care (01) | DRG 291 ==
LOC: EDBD → EDUNIT# → N.ED 11:29 → N.EDINP 14:19 → N.TELES 17:00
PROVIDERS: ADMIT Internal Medicine; ATTEND Internal Medicine

== ENCOUNTER 2019-08-09 13:06 | Inpatient (IN) ==
[2019-08-09] MEDS ORDERED: HYDROmorphone 2 MG/1 ML VIAL IV STA (13:46)
[2019-08-09] MEDS ORDERED: ONDANSETRON 4 MG/2 ML VIAL IV STA (13:46)
[2019-08-09] MEDS ORDERED: PROMETHAZINE 25 MG/1 ML VIAL IM STA (15:06)
[2019-08-09] MEDS ORDERED: hydrALAZINE 20 MG/1 ML VIAL ONE (16:27)
[2019-08-09] MEDS ORDERED: hydrALAZINE 20 MG/1 ML VIAL IV STA (16:43)
[2019-08-09 18:05] LABS: Basophils % 0.5 % (0.0-0.8); Eosinophils # 0.1 10*3/uL (0.0-0.87); Eosinophils % 0.6 % (0.00-10.9); Hemoglobin 11.1 GM/DL (12.0-16.0); Immature Granulocytes % 1.1 %; Immature Granulocytes Absolute 0.09 #; Lymphocytes # 0.8 10*3/uL (1.4-4.0); Lymphocytes % 9.7 % (21.3-54.2); Mean Corpuscular HGB Conc 31.7 GM/DL (32-36); Mean Corpuscular Volume 99.7 FL (87-102); Mean Platelet Volume 10.6 FL (9.6-12.0); Neutrophils % 82.1 % (38.7-73.9); Platelet Count 286 T/CUMM (130-400); Red Blood Count 3.51 MC/CUMM (3.8-5.5); Red Cell Distribution Width 14.6 % (9.3-17.3); White Blood Count 8.2 T/CUMM (4-12)
[2019-08-09 18:28] LABS: Calcium 8.4 MG/DL (8.5-10.1); Osmolality,Calculated 289.4 MOS/KG (273-304)
[2019-08-09] MEDS ORDERED: METOPROLOL TARTRATE 50 MG TABLET PO STA (20:22)
[2019-08-09] MEDS ORDERED: METOPROLOL TARTRATE 25 MG TABLET ONE (20:27)
[2019-08-09] MEDS ORDERED: ONDANSETRON 4 MG/2 ML VIAL IV PRN (23:18)
[2019-08-09] MEDS ORDERED: DOCUSATE SODIUM 100 MG CAPSULE PO PRN (23:18)
[2019-08-09] MEDS ORDERED: GLUCAGON 1 MG VIAL IM PRN (23:18)
[2019-08-09] MEDS ORDERED: PROMETHAZINE 25 MG/1 ML VIAL IM PRN (23:18)
[2019-08-09] MEDS ORDERED: DEXTROSE 50% 25 GM/50 ML VIAL IV PRN (23:18)
[2019-08-09] MEDS: INSULIN LISPRO 100 UNIT/ML SUBCUT SCH (23:49)
[2019-08-09] MEDS: INSULIN NPH/REGULAR 70/30 100 UNIT/ML SUBCUT SCH (23:49)
[2019-08-09] MEDS: APIXABAN 5 MG TABLET PO SCH (23:50)
[2019-08-09] MEDS: GABAPENTIN 300 MG CAPSULE PO SCH (23:50)
[2019-08-09] MEDS: CALCIUM CARBONATE CHEW 500 MG TABLET PO SCH (23:50)
[2019-08-10] MEDS: INSULIN LISPRO 100 UNIT/ML SUBCUT SCH ×4 (08:47→21:14)
[2019-08-10] MEDS ORDERED: LACTULOSE 20 GM/30 ML UDCUP PO PRN (08:48)
[2019-08-10] MEDS: INSULIN NPH/REGULAR 70/30 100 UNIT/ML SUBCUT SCH ×2 (09:42→21:15)
[2019-08-10] MEDS: CALCIUM CARBONATE CHEW 500 MG TABLET PO SCH ×4 (09:43→21:15)
[2019-08-10] MEDS: PANTOPRAZOLE 40 MG TABLET PO SCH (09:44)
[2019-08-10] MEDS: ASPIRIN EC 81 MG TABLET PO SCH (09:44)
[2019-08-10] MEDS: COLCHICINE 0.6 MG CAPSULE PO SCH ×2 (09:44→21:15)
[2019-08-10] MEDS: amLODIPine 10 MG TABLET PO SCH (09:44)
[2019-08-10] MEDS: APIXABAN 5 MG TABLET PO SCH ×2 (09:44→21:15)
[2019-08-10] MEDS: allopurinoL 100 MG TABLET PO SCH (09:44)
[2019-08-10] MEDS: METOPROLOL TARTRATE 50 MG TABLET PO SCH ×2 (09:44→21:15)
[2019-08-10] MEDS: MEGESTROL 40 MG TABLET PO SCH (09:44)
[2019-08-10 14:07] LABS: Basophils # 0.1 10*3/uL (0.0-0.2); Basophils % 0.6 % (0.0-0.8); Eosinophils # 0.1 10*3/uL (0.0-0.87); Eosinophils % 1.4 % (0.00-10.9); Hematocrit 34.3 VOL% (35.7-47.0); Hemoglobin 10.7 GM/DL (12.0-16.0); Immature Granulocytes % 0.8 %; Immature Granulocytes Absolute 0.08 #; Lymphocytes # 1.1 10*3/uL (1.4-4.0); Lymphocytes % 10.8 % (21.3-54.2); Mean Corpuscular HGB Conc 31.2 GM/DL (32-36); Mean Corpuscular Volume 101.8 FL (87-102); Mean Platelet Volume 10.2 FL (9.6-12.0); Monocytes % 9.7 % (1.7-12.7); Neutrophils % 76.7 % (38.7-73.9); Platelet Count 308 T/CUMM (130-400); Red Blood Count 3.37 MC/CUMM (3.8-5.5); White Blood Count 9.7 T/CUMM (4-12)
[2019-08-10 14:22] LABS: Calcium 8.7 MG/DL (8.5-10.1)
[2019-08-10] MEDS: GABAPENTIN 300 MG CAPSULE PO SCH (21:15)
[2019-08-10] MEDS: ROSUVASTATIN 20 MG TABLET PO SCH (21:15)
[2019-08-11 05:54] LABS: Basophils # 0.1 10*3/uL (0.0-0.2); Basophils % 0.6 % (0.0-0.8); Eosinophils # 0.2 10*3/uL (0.0-0.87); Hematocrit 32.3 VOL% (35.7-47.0); Hemoglobin 10.2 GM/DL (12.0-16.0); Immature Granulocytes % 1.4 %; Immature Granulocytes Absolute 0.14 #; Lymphocytes # 1.5 10*3/uL (1.4-4.0); Lymphocytes % 15.1 % (21.3-54.2); Mean Corpuscular HGB Conc 31.6 GM/DL (32-36); Mean Corpuscular Volume 100.3 FL (87-102); Mean Platelet Volume 10.6 FL (9.6-12.0); Monocytes % 9.7 % (1.7-12.7); Neutrophils % 71.2 % (38.7-73.9); Platelet Count 311 T/CUMM (130-400); Red Blood Count 3.22 MC/CUMM (3.8-5.5); Red Cell Distribution Width 14.9 % (9.3-17.3); White Blood Count 9.9 T/CUMM (4-12)
[2019-08-11 06:18] LABS: Calcium 8.5 MG/DL (8.5-10.1); Osmolality,Calculated 293.8 MOS/KG (273-304)
[2019-08-11] MEDS: APIXABAN 5 MG TABLET PO SCH ×2 (08:21→21:57)
[2019-08-11] MEDS: COLCHICINE 0.6 MG CAPSULE PO SCH ×2 (08:21→21:57)
[2019-08-11] MEDS: ASPIRIN EC 81 MG TABLET PO SCH (08:21)
[2019-08-11] MEDS: MEGESTROL 40 MG TABLET PO SCH (08:21)
[2019-08-11] MEDS: CALCIUM CARBONATE CHEW 500 MG TABLET PO SCH ×4 (08:21→21:57)
[2019-08-11] MEDS: PANTOPRAZOLE 40 MG TABLET PO SCH (08:21)
[2019-08-11] MEDS: METOPROLOL TARTRATE 50 MG TABLET PO SCH ×2 (08:21→21:58)
[2019-08-11] MEDS: allopurinoL 100 MG TABLET PO SCH (08:21)
[2019-08-11] MEDS: amLODIPine 10 MG TABLET PO SCH (08:22)
[2019-08-11] MEDS: INSULIN NPH/REGULAR 70/30 100 UNIT/ML SUBCUT SCH ×2 (08:30→21:57)
[2019-08-11] MEDS: INSULIN LISPRO 100 UNIT/ML SUBCUT SCH ×4 (08:30→21:56)
[2019-08-11] MEDS ORDERED: ALTEPLASE 2 MG VIAL IV ONE (11:00)
[2019-08-11] MEDS: ACETAMINOPHEN 325 MG TABLET PO PRN (11:32)
[2019-08-11] MEDS ORDERED: HEPARIN 10,000 UNIT/10 ML VIAL IV PRN (12:16)
[2019-08-11] MEDS: ROSUVASTATIN 20 MG TABLET PO SCH (21:57)
[2019-08-11] MEDS: GABAPENTIN 300 MG CAPSULE PO SCH (21:57)
[2019-08-12] MEDS: ACETAMINOPHEN 325 MG TABLET PO PRN (00:27)
[2019-08-12 07:28] LABS: Basophils # 0.1 10*3/uL (0.0-0.2); Basophils % 0.6 % (0.0-0.8); Eosinophils # 0.1 10*3/uL (0.0-0.87); Eosinophils % 1.1 % (0.00-10.9); Hematocrit 31.4 VOL% (35.7-47.0); Hemoglobin 9.8 GM/DL (12.0-16.0); Immature Granulocytes % 1.3 %; Immature Granulocytes Absolute 0.14 #; Lymphocytes % 9.3 % (21.3-54.2); Mean Corpuscular HGB Conc 31.2 GM/DL (32-36); Mean Corpuscular Volume 101.3 FL (87-102); Mean Platelet Volume 9.9 FL (9.6-12.0); Monocytes % 8.3 % (1.7-12.7); Neutrophils % 79.4 % (38.7-73.9); Platelet Count 282 T/CUMM (130-400)
[2019-08-12 07:42] LABS: Calcium 8.5 MG/DL (8.5-10.1); Osmolality,Calculated 286.1 MOS/KG (273-304)
[2019-08-12] MEDS: METOPROLOL TARTRATE 50 MG TABLET PO SCH ×2 (10:59→21:44)
[2019-08-12] MEDS: amLODIPine 10 MG TABLET PO SCH (10:59)
[2019-08-12] MEDS: COLCHICINE 0.6 MG CAPSULE PO SCH ×2 (10:59→21:44)
[2019-08-12] MEDS: APIXABAN 5 MG TABLET PO SCH ×2 (10:59→21:44)
[2019-08-12] MEDS: MEGESTROL 40 MG TABLET PO SCH (10:59)
[2019-08-12] MEDS: CALCIUM CARBONATE CHEW 500 MG TABLET PO SCH ×4 (11:00→22:41)
[2019-08-12] MEDS: allopurinoL 100 MG TABLET PO SCH (11:00)
[2019-08-12] MEDS: PANTOPRAZOLE 40 MG TABLET PO SCH (11:00)
[2019-08-12] MEDS: ASPIRIN EC 81 MG TABLET PO SCH (11:01)
[2019-08-12] MEDS: INSULIN LISPRO 100 UNIT/ML SUBCUT SCH ×4 (11:05→22:41)
[2019-08-12] MEDS: INSULIN NPH/REGULAR 70/30 100 UNIT/ML SUBCUT SCH ×2 (11:06→21:45)
[2019-08-12] MEDS ORDERED: GABAPENTIN 300 MG CAPSULE PO SCH (21:00)
[2019-08-12] MEDS: ROSUVASTATIN 20 MG TABLET PO SCH (21:44)
[2019-08-13 08:01] LABS: Basophils # 0.1 10*3/uL (0.0-0.2); Basophils % 0.5 % (0.0-0.8); Eosinophils % 0.3 % (0.00-10.9); Hematocrit 34.5 VOL% (35.7-47.0); Hemoglobin 10.8 GM/DL (12.0-16.0); Immature Granulocytes % 1.4 %; Immature Granulocytes Absolute 0.17 #; Mean Corpuscular HGB Conc 31.3 GM/DL (32-36); Mean Corpuscular Volume 101.5 FL (87-102); Mean Platelet Volume 9.7 FL (9.6-12.0); Monocytes % 8.6 % (1.7-12.7); Neutrophils % 81.2 % (38.7-73.9); Platelet Count 322 T/CUMM (130-400); Red Cell Distribution Width 15.2 % (9.3-17.3); White Blood Count 11.9 T/CUMM (4-12)
[2019-08-13 08:19] LABS: Calcium 9.2 MG/DL (8.5-10.1); Osmolality,Calculated 289.8 MOS/KG (273-304)
[2019-08-13] MEDS: CALCIUM CARBONATE CHEW 500 MG TABLET PO SCH ×2 (10:28→15:16)
[2019-08-13] MEDS: INSULIN LISPRO 100 UNIT/ML SUBCUT SCH ×2 (10:28→15:23)
[2019-08-13] MEDS: allopurinoL 100 MG TABLET PO SCH (15:16)
[2019-08-13] MEDS: METOPROLOL TARTRATE 50 MG TABLET PO SCH (15:16)
[2019-08-13] MEDS: APIXABAN 5 MG TABLET PO SCH (15:17)
[2019-08-13] MEDS: COLCHICINE 0.6 MG CAPSULE PO SCH (15:17)
[2019-08-13] MEDS: MEGESTROL 40 MG TABLET PO SCH (15:17)
[2019-08-13] MEDS: amLODIPine 10 MG TABLET PO SCH (15:17)
[2019-08-13] MEDS: PANTOPRAZOLE 40 MG TABLET PO SCH (15:17)
[2019-08-13] MEDS: INSULIN NPH/REGULAR 70/30 100 UNIT/ML SUBCUT SCH (15:19)
[2019-08-13] MEDS: ASPIRIN EC 81 MG TABLET PO SCH (15:23)
[2019-08-13 16:41] VITALS: BP 147/77
[2019-08-13] MEDS ORDERED: GABAPENTIN 300 MG CAPSULE PO SCH (21:00)
== END 2019-08-13 17:40 | disposition home health service (06) | DRG 551 ==
LOC: EDUNIT# → EDBD → N.EDINP 13:06 → N.ED 13:06 → N.EDINP 21:52 → N.TELES 22:35
PROVIDERS: ADMIT Emergency Medicine; ATTEND Emergency Medicine

== ENCOUNTER 2019-08-29 09:36 | Inpatient (IN) ==
[2019-08-29] MEDS ORDERED: ONDANSETRON 4 MG/2 ML VIAL ONE (09:44)
[2019-08-29] MEDS ORDERED: NALOXONE 0.4 MG/ML VIAL ONE (09:44)
[2019-08-29] MEDS ORDERED: ONDANSETRON 4 MG/2 ML VIAL IV ONE (09:58)
[2019-08-29] MEDS ORDERED: NALOXONE 0.4 MG/ML VIAL IV STA (09:58)
[2019-08-29 10:21] LABS: Basophils # 0.1 10*3/uL (0.0-0.2); Basophils % 0.5 % (0.0-0.8); Eosinophils # 0.2 10*3/uL (0.0-0.87); Eosinophils % 1.2 % (0.00-10.9); Hematocrit 33.9 VOL% (35.7-47.0); Hemoglobin 10.2 GM/DL (12.0-16.0); Immature Granulocytes % 1.1 %; Immature Granulocytes Absolute 0.17 #; Lymphocytes # 0.8 10*3/uL (1.4-4.0); Lymphocytes % 5.4 % (21.3-54.2); Mean Corpuscular HGB Conc 30.1 GM/DL (32-36); Mean Corpuscular Volume 104.6 FL (87-102); Mean Platelet Volume 11.1 FL (9.6-12.0); Monocytes % 4.7 % (1.7-12.7); Neutrophils % 87.1 % (38.7-73.9); Platelet Count 247 T/CUMM (130-400); Red Blood Count 3.24 MC/CUMM (3.8-5.5); Red Cell Distribution Width 15.2 % (9.3-17.3); White Blood Count 15.3 T/CUMM (4-12)
[2019-08-29 10:30] LABS: Alanine Aminotransferase 23 U/L (13-56); Albumin 2.5 G/DL (3.4-5.0); Alkaline Phosphatase 47 U/L (45-117); Aspartate Amino Transferase 15 U/L (0-37); Blood Urea Nitrogen 26 MG/DL (7-18); Calcium 8.9 MG/DL (8.5-10.1); Estimated Glom Filtration Rate 11 ML/MIN; Glucose 319 MG/DL (74-106); Osmolality,Calculated 282.4 MOS/KG (273-304); Total Protein 7.3 G/DL (6.4-8.3); Troponin I < 0.015 NG/ML (0.00-0.045)
[2019-08-29 10:39] LABS: INR 1.2; PT Patient Result 12.6 SECS (9.6-12.2)
[2019-08-29] MEDS ORDERED: ASPIRIN 325 MG TABLET PO STA (10:49)
[2019-08-29] MEDS ORDERED: ONDANSETRON 4 MG/2 ML VIAL IV PRN (12:03)
[2019-08-29] MEDS ORDERED: BISACODYL 5 MG TABLET PO PRN (12:03)
[2019-08-29 12:05] LABS: ABG Base Excess 3.1 MMOL/L (-2.5-2.5); ABG HCO3 29.6 MMOL/L (20-26); ABG Oxygen Saturation 96.9 % (95-100); ABG PCO2 54.9 MM HG (35-48); ABG PO2 94.9 MM HG (80-95); ABG TCO2 31.3 MMOL/L (23-27); Allen Test Positive
[2019-08-29] MEDS ORDERED: COLCHICINE 0.6 MG CAPSULE PO PRN (12:09)
[2019-08-29 12:28] LABS: Risk Ratio 2.38
[2019-08-29 12:35] LABS: Folate 3.7 NG/ML (5.4-24.0)
[2019-08-29] MEDS ORDERED: NALOXONE 0.4 MG/ML VIAL IV PRN (12:53)
[2019-08-29] MEDS ORDERED: MAGNESIUM SULF RIDER 2 GM in PREMIX 1 EACH IV PRN (12:53)
[2019-08-29] MEDS ORDERED: MAGNESIUM SULF RIDER 4 GM in PREMIX 1 EACH IV PRN (12:53)
[2019-08-29] MEDS ORDERED: hydrALAZINE 20 MG/1 ML VIAL IV PRN (14:33)
[2019-08-29] MEDS: FOLIC ACID 1 MG TABLET PO SCH (14:38)
[2019-08-29] MEDS: ALBUTEROL/IPRATROPIUM 3 ML NEB RESP TX SCH ×2 (14:53→19:23)
[2019-08-29] MEDS: CALCIUM CARBONATE CHEW 500 MG TABLET PO SCH ×2 (16:43→21:55)
[2019-08-29] MEDS ORDERED: GLUCAGON 1 MG VIAL IM PRN (17:39)
[2019-08-29] MEDS ORDERED: DEXTROSE 10% 250 ML BAG IV PRN (17:39)
[2019-08-29] MEDS: INSULIN NPH/REGULAR 70/30 100 UNIT/ML SUBCUT SCH (21:55)
[2019-08-29] MEDS: METOPROLOL TARTRATE 50 MG TABLET PO SCH (21:55)
[2019-08-29] MEDS: APIXABAN 5 MG TABLET PO SCH (21:56)
[2019-08-29] MEDS: INSULIN REGULAR 100 UNIT/ML SUBCUT SCH (21:56)
[2019-08-30] MEDS: ALBUTEROL/IPRATROPIUM 3 ML NEB RESP TX SCH ×4 (00:39→20:10)
[2019-08-30] MEDS: ACETAMINOPHEN 325 MG TABLET PO PRN ×3 (03:40→22:39)
[2019-08-30] MEDS: LEVOTHYROXINE 50 MCG TABLET PO SCH (06:24)
[2019-08-30 07:13] LABS: Basophils % 0.4 % (0.0-0.8); Eosinophils # 0.2 10*3/uL (0.0-0.87); Eosinophils % 2.2 % (0.00-10.9); Hemoglobin 9.4 GM/DL (12.0-16.0); Immature Granulocytes % 0.6 %; Immature Granulocytes Absolute 0.04 #; Lymphocytes % 13.9 % (21.3-54.2); Mean Corpuscular HGB Conc 30.3 GM/DL (32-36); Mean Corpuscular Volume 103.7 FL (87-102); Mean Platelet Volume 11.1 FL (9.6-12.0); Monocytes % 10.4 % (1.7-12.7); Neutrophils % 72.5 % (38.7-73.9); Platelet Count 211 T/CUMM (130-400); Red Blood Count 2.99 MC/CUMM (3.8-5.5); Red Cell Distribution Width 15.3 % (9.3-17.3); White Blood Count 6.8 T/CUMM (4-12)
[2019-08-30 07:28] LABS: Calcium 8.8 MG/DL (8.5-10.1); Osmolality,Calculated 285.1 MOS/KG (273-304)
[2019-08-30] MEDS: CALCIUM CARBONATE CHEW 500 MG TABLET PO SCH ×4 (09:21→22:07)
[2019-08-30] MEDS: FOLIC ACID 1 MG TABLET PO SCH (09:22)
[2019-08-30] MEDS: APIXABAN 5 MG TABLET PO SCH ×2 (09:22→22:07)
[2019-08-30] MEDS: allopurinoL 100 MG TABLET PO SCH (09:22)
[2019-08-30] MEDS: MEGESTROL 40 MG TABLET PO SCH (09:22)
[2019-08-30] MEDS: ROSUVASTATIN 20 MG TABLET PO SCH (09:22)
[2019-08-30] MEDS: INSULIN REGULAR 100 UNIT/ML SUBCUT SCH ×4 (09:23→22:31)
[2019-08-30] MEDS: INSULIN NPH/REGULAR 70/30 100 UNIT/ML SUBCUT SCH ×2 (09:23→22:38)
[2019-08-30] MEDS: PANTOPRAZOLE 40 MG TABLET PO SCH (09:23)
[2019-08-30] MEDS: ASPIRIN EC 81 MG TABLET PO SCH (09:23)
[2019-08-30] MEDS: METOPROLOL TARTRATE 50 MG TABLET PO SCH ×2 (09:28→22:07)
[2019-08-30 14:40] LABS: ABG Base Excess 3.6 MMOL/L (-2.5-2.5); ABG HCO3 27.6 MMOL/L (20-26); ABG PCO2 61.7 MM HG (35-48); ABG PH 7.325 (7.35-7.45); ABG PO2 83.7 MM HG (80-95); ABG TCO2 27.5 MMOL/L (23-27); Allen Test Positive
[2019-08-31] MEDS: ALBUTEROL/IPRATROPIUM 3 ML NEB RESP TX SCH ×4 (00:30→19:00)
[2019-08-31] MEDS: LEVOTHYROXINE 50 MCG TABLET PO SCH (05:53)
[2019-08-31 06:14] LABS: Hematocrit 29.7 VOL% (35.7-47.0); Hemoglobin 9.1 GM/DL (12.0-16.0); Mean Corpuscular HGB Conc 30.6 GM/DL (32-36); Mean Corpuscular Volume 103.1 FL (87-102); Mean Platelet Volume 10.8 FL (9.6-12.0); Platelet Count 219 T/CUMM (130-400); Red Blood Count 2.88 MC/CUMM (3.8-5.5); Red Cell Distribution Width 15.1 % (9.3-17.3); White Blood Count 7.3 T/CUMM (4-12)
[2019-08-31 06:15] LABS: Basophils % 0.4 % (0.0-0.8); Eosinophils # 0.2 10*3/uL (0.0-0.87); Eosinophils % 2.6 % (0.00-10.9); Immature Granulocytes % 0.5 %; Immature Granulocytes Absolute 0.04 #; Lymphocytes # 1.4 10*3/uL (1.4-4.0); Lymphocytes % 19.6 % (21.3-54.2); Monocytes % 11.4 % (1.7-12.7); Neutrophils % 65.5 % (38.7-73.9)
[2019-08-31 06:42] LABS: Calcium 8.8 MG/DL (8.5-10.1)
[2019-08-31] MEDS: INSULIN REGULAR 100 UNIT/ML SUBCUT SCH ×4 (08:43→21:56)
[2019-08-31] MEDS: METOPROLOL TARTRATE 50 MG TABLET PO SCH ×2 (08:47→21:59)
[2019-08-31] MEDS: INSULIN NPH/REGULAR 70/30 100 UNIT/ML SUBCUT SCH ×2 (09:08→21:56)
[2019-08-31] MEDS: PANTOPRAZOLE 40 MG TABLET PO SCH (09:09)
[2019-08-31] MEDS: allopurinoL 100 MG TABLET PO SCH (09:09)
[2019-08-31] MEDS: FOLIC ACID 1 MG TABLET PO SCH (09:09)
[2019-08-31] MEDS: ASPIRIN EC 81 MG TABLET PO SCH (09:09)
[2019-08-31] MEDS: CALCIUM CARBONATE CHEW 500 MG TABLET PO SCH ×4 (09:09→21:55)
[2019-08-31] MEDS: ROSUVASTATIN 20 MG TABLET PO SCH (09:09)
[2019-08-31] MEDS: MEGESTROL 40 MG TABLET PO SCH (09:09)
[2019-08-31] MEDS ORDERED: TUBERCULIN SKIN TEST 0.1 ML SYRINGE INTRADERM ONE (11:45)
[2019-08-31] MEDS: APIXABAN 5 MG TABLET PO SCH ×2 (12:16→21:55)
[2019-08-31] MEDS: cephALEXin 500 MG CAPSULE PO SCH ×2 (12:17→21:54)
[2019-08-31] MEDS: DICLOFENAC 1% GEL 100 GM TUBE TOP SCH (21:55)
[2019-09-01] MEDS: ALBUTEROL/IPRATROPIUM 3 ML NEB RESP TX SCH ×2 (01:02→07:15)
[2019-09-01] MEDS: LEVOTHYROXINE 50 MCG TABLET PO SCH (05:32)
[2019-09-01 06:24] LABS: Basophils % 0.3 % (0.0-0.8); Eosinophils # 0.2 10*3/uL (0.0-0.87); Eosinophils % 2.4 % (0.00-10.9); Hematocrit 31.2 VOL% (35.7-47.0); Hemoglobin 9.5 GM/DL (12.0-16.0); Immature Granulocytes % 0.3 %; Immature Granulocytes Absolute 0.02 #; Lymphocytes # 1.1 10*3/uL (1.4-4.0); Lymphocytes % 16.8 % (21.3-54.2); Mean Corpuscular HGB Conc 30.4 GM/DL (32-36); Mean Corpuscular Volume 103.3 FL (87-102); Mean Platelet Volume 10.9 FL (9.6-12.0); Monocytes % 10.3 % (1.7-12.7); Neutrophils % 69.9 % (38.7-73.9); Platelet Count 244 T/CUMM (130-400); Red Blood Count 3.02 MC/CUMM (3.8-5.5); Red Cell Distribution Width 15.6 % (9.3-17.3); White Blood Count 6.8 T/CUMM (4-12)
[2019-09-01] MEDS: INSULIN REGULAR 100 UNIT/ML SUBCUT SCH ×2 (07:28→12:29)
[2019-09-01] MEDS ORDERED: POLYETHYLENE GLYCOL POWDER 17 GM PACK PO SCH (09:00)
[2019-09-01] MEDS: ROSUVASTATIN 20 MG TABLET PO SCH (09:03)
[2019-09-01] MEDS: ASPIRIN EC 81 MG TABLET PO SCH (09:03)
[2019-09-01] MEDS: CALCIUM CARBONATE CHEW 500 MG TABLET PO SCH ×2 (09:03→12:33)
[2019-09-01] MEDS: APIXABAN 5 MG TABLET PO SCH (09:04)
[2019-09-01] MEDS: FOLIC ACID 1 MG TABLET PO SCH (09:04)
[2019-09-01] MEDS: cephALEXin 500 MG CAPSULE PO SCH (09:05)
[2019-09-01] MEDS: INSULIN NPH/REGULAR 70/30 100 UNIT/ML SUBCUT SCH (09:05)
[2019-09-01] MEDS: METOPROLOL TARTRATE 50 MG TABLET PO SCH (09:05)
[2019-09-01] MEDS: allopurinoL 100 MG TABLET PO SCH (09:05)
[2019-09-01] MEDS: PANTOPRAZOLE 40 MG TABLET PO SCH (09:05)
[2019-09-01] MEDS: MEGESTROL 40 MG TABLET PO SCH (09:05)
[2019-09-01] MEDS: DICLOFENAC 1% GEL 100 GM TUBE TOP SCH ×2 (09:06→14:43)
[2019-09-01 12:29] VITALS: BP 103/82
== END 2019-09-01 15:27 | DRG 917 ==
LOC: EDUNIT# → EDBD → N.ED 09:36 → N.EDINP 12:03 → N.2E 13:44
PROVIDERS: ADMIT Internal Medicine; ATTEND Internal Medicine

== ENCOUNTER 2020-06-14 07:02 | Inpatient (IN) ==
[2020-06-14] MEDS ORDERED: ONDANSETRON 4 MG/2 ML VIAL IV STA (07:19)
[2020-06-14 07:41] LABS: Basophils # 0.1 10*3/uL (0.0-0.2); Basophils % 0.7 % (0.0-0.8); Eosinophils # 0.2 10*3/uL (0.0-0.87); Eosinophils % 2.4 % (0.00-10.9); Hematocrit 36.7 VOL% (35.7-47.0); Hemoglobin 11.9 GM/DL (12.0-16.0); Immature Granulocytes % 0.3 %; Immature Granulocytes Absolute 0.03 #; Lymphocytes # 2.2 10*3/uL (1.4-4.0); Lymphocytes % 25.1 % (21.3-54.2); Mean Corpuscular HGB Conc 32.4 GM/DL (32-36); Mean Corpuscular Volume 101.7 FL (87-102); Mean Platelet Volume 10.9 FL (9.6-12.0); Monocytes % 6.8 % (1.7-12.7); Neutrophils % 64.7 % (38.7-73.9); Platelet Count 222 T/CUMM (130-400); Red Blood Count 3.61 MC/CUMM (3.8-5.5); Red Cell Distribution Width 12.9 % (9.3-17.3); White Blood Count 8.8 T/CUMM (4-12)
[2020-06-14 08:08] LABS: Alanine Aminotransferase 11 U/L (13-56); Albumin 2.7 G/DL (3.4-5.0); Alkaline Phosphatase 46 U/L (45-117); Aspartate Amino Transferase 10 U/L (0-37); Blood Urea Nitrogen 62 MG/DL (7-18); Calcium 9.1 MG/DL (8.5-10.1); Carbon Dioxide 24 MMOL/L (21-32); Estimated Glom Filtration Rate 5 ML/MIN; Glucose 283 MG/DL (74-106); Osmolality,Calculated 291.5 MOS/KG (273-304); Potassium 3.6 MMOL/L (3.5-5.1); Sodium 132 MMOL/L (136-145); Total Protein 7.1 G/DL (6.4-8.3)
[2020-06-14] MEDS ORDERED: VANCOMYCIN INJ 1,500 MG in SODIUM CHLORIDE 0.9% 500 ML IV STA (08:21)
[2020-06-14] MEDS ORDERED: GLUCAGON 1 MG VIAL IM PRN (10:22)
[2020-06-14] MEDS ORDERED: DEXTROSE 50% 25 GM/50 ML VIAL IV PRN (10:22)
[2020-06-14] MEDS ORDERED: SODIUM CHLORIDE 0.9% 250 ML IV ONE (10:32)
[2020-06-14 11:02] LABS: INR 1.2
[2020-06-14] MEDS ORDERED: INSULIN REGULAR 100 UNIT/ML SUBCUT SCH (11:30)
[2020-06-14] MEDS ORDERED: CALCIUM CARBONATE CHEW 500 MG TABLET PO SCH (11:30)
[2020-06-14 17:20] VITALS: BP 132/80
[2020-06-14] MEDS ORDERED: INSULIN NPH/REGULAR 70/30 100 UNIT/ML SUBCUT SCH (21:00)
[2020-06-14] MEDS ORDERED: GABAPENTIN 100 MG CAPSULE PO SCH (21:00)
[2020-06-14] MEDS ORDERED: METOPROLOL TARTRATE 25 MG TABLET PO SCH (21:00)
[2020-06-15] MEDS ORDERED: LEVOTHYROXINE 50 MCG TABLET PO SCH (06:30)
[2020-06-15] MEDS ORDERED: PANTOPRAZOLE 40 MG TABLET PO SCH (09:00)
[2020-06-15] MEDS ORDERED: ASPIRIN EC 81 MG TABLET PO SCH (09:00)
[2020-06-15] MEDS ORDERED: INSULIN NPH/REGULAR 70/30 100 UNIT/ML SUBCUT SCH (09:00)
[2020-06-15] MEDS ORDERED: FOLIC ACID 1 MG TABLET PO SCH (09:00)
[2020-06-15] MEDS ORDERED: ROSUVASTATIN 20 MG TABLET PO SCH (09:00)
[2020-06-15] MEDS ORDERED: allopurinoL 100 MG TABLET PO SCH (09:00)
[2020-06-15] MEDS ORDERED: amLODIPine 2.5 MG TABLET PO SCH (09:00)
[2020-06-16] MEDS ORDERED: WARFARIN 5 MG TABLET PO SCH (09:00)
== END 2020-06-14 17:06 | disposition left against medical advice (07) | DRG 391 ==
LOC: EDUNIT# → EDSEX → EDBD → N.ED 07:02 → N.EDINP 10:14
PROVIDERS: ADMIT Internal Medicine; ATTEND Internal Medicine

== ENCOUNTER 2020-09-15 06:53 | Observation (INO) ==
[2020-09-12 11:21] LABS: Basophils % 0.7 % (0.0-0.8); Eosinophils # 0.2 10*3/uL (0.0-0.87); Eosinophils % 3.8 % (0.00-10.9); Hematocrit 34.2 VOL% (35.7-47.0); Hemoglobin 10.8 GM/DL (12.0-16.0); Immature Granulocytes % 0.4 %; Immature Granulocytes Absolute 0.02 #; Lymphocytes # 1.5 10*3/uL (1.4-4.0); Lymphocytes % 27.9 % (21.3-54.2); Mean Corpuscular HGB Conc 31.6 GM/DL (32-36); Mean Corpuscular Volume 103.3 FL (87-102); Mean Platelet Volume 11.2 FL (9.6-12.0); Monocytes % 10.9 % (1.7-12.7); Neutrophils % 56.3 % (38.7-73.9); Platelet Count 244 T/CUMM (130-400); Red Blood Count 3.31 MC/CUMM (3.8-5.5); Red Cell Distribution Width 13.3 % (9.3-17.3); White Blood Count 5.5 T/CUMM (4-12)
[2020-09-12 11:31] LABS: Albumin 3.1 G/DL (3.4-5.0); Calcium 9.4 MG/DL (8.5-10.1); Osmolality,Calculated 280.1 MOS/KG (273-304); PT Patient Result 11.2 SECS (9.8-11.9); Partial Thromboplastin Time 28.1 SECS (23.9-33.8); Total Protein 7.3 G/DL (6.4-8.3)
[~2020-09-15 06:53] MED LIST: DIAZEPAM 5 MG TABLET ONE; SODIUM CHLORIDE 0.9% 250 ML IV SCH; VANCOMYCIN 1,000 MG VIAL ONE
[2020-09-15] MEDS ORDERED: SODIUM CHLORIDE 0.45% 1,000 ML IV SCH (07:30)
[2020-09-15] MEDS ORDERED: DIAZEPAM 5 MG TABLET PO ONE (08:30)
[2020-09-15] MEDS ORDERED: VANCOMYCIN INJ 1,000 MG in SODIUM CHLORIDE 0.9% 250 ML IV ONE (09:30)
[2020-09-15] MEDS ORDERED: ONDANSETRON 4 MG/2 ML VIAL IV STA (10:02)
[2020-09-15] MEDS ORDERED: SCOPOLAMINE 1.5 MG PATCH TRANSDERM STA (10:02)
[2020-09-15] MEDS ORDERED: SCOPOLAMINE 1.5 MG PATCH TRANSDERM ONE (10:05)
[2020-09-15] MEDS ORDERED: ONDANSETRON 4 MG/2 ML VIAL ONE (10:06)
[2020-09-15] MEDS ORDERED: SUGAMMADEX 200 MG/2 ML VIAL IV ONE (11:41)
[2020-09-15 12:11] LABS: Hematocrit 33.6 VOL% (35.7-47.0); Hemoglobin 10.5 GM/DL (12.0-16.0)
[2020-09-15] MEDS ORDERED: HEPARIN/NACL 0.9% 2 UNITS/ML 1,000 ML IV ONE (12:55)
[2020-09-15] MEDS ORDERED: PROMETHAZINE INJ 25 MG in SODIUM CHLORIDE 0.9% 50 ML IV PRN (16:06)
[2020-09-15] MEDS ORDERED: MEPERIDINE 25 MG/1 ML VIAL IV PRN (16:06)
[2020-09-15] MEDS ORDERED: ONDANSETRON 4 MG/2 ML VIAL IV PRN ×2 (16:06→17:19)
[2020-09-15] MEDS ORDERED: hydrALAZINE 20 MG/1 ML VIAL ONE (16:15)
[2020-09-15] MEDS ORDERED: hydrALAZINE 20 MG/1 ML VIAL IV ONE (16:16)
[2020-09-15] MEDS ORDERED: fentaNYL 100 MCG/2 ML VIAL ONE (17:03)
[2020-09-15] MEDS ORDERED: LIDOCAINE 2% 5 ML VIAL ONE (17:08)
[2020-09-15] MEDS ORDERED: propofoL 200 MG/20 ML VIAL IV ONE (17:08)
[2020-09-15] MEDS ORDERED: ROCURONIUM 50 MG/5 ML VIAL IV ONE (17:08)
[2020-09-15] MEDS ORDERED: SEVOFLURANE 1 UNIT/15 MINUTE INH ONE (17:08)
[2020-09-15] MEDS ORDERED: PHENYLEPHRINE 1 MG/10 ML SYRINGE IV ONE (17:08)
[2020-09-15] MEDS ORDERED: ETOMIDATE 40 MG/20 ML VIAL IV ONE (17:08)
[2020-09-15] MEDS ORDERED: SODIUM CHLORIDE 0.9% 250 ML IV ONE (17:08)
[2020-09-15] MEDS ORDERED: METOPROLOL TARTRATE 50 MG TABLET PO SCH (21:00)
[2020-09-15] MEDS ORDERED: CLOPIDOGREL 75 MG TABLET PO ONE (21:00)
[2020-09-15] MEDS ORDERED: INSULIN NPH/REGULAR 70/30 100 UNIT/ML SUBCUT SCH (21:00)
[2020-09-15] MEDS: APIXABAN 5 MG TABLET PO SCH (23:27)
[2020-09-16] MEDS: APIXABAN 5 MG TABLET PO SCH (08:18)
[2020-09-16 12:26] VITALS: BP 94/73
== END 2020-09-16 14:10 | disposition home or self-care (01) ==
LOC: N.SDSINP 06:53 → N.RAD 06:53 → N.SDSINP 06:56 → EDSDCBED 18:58 → N.3E 18:58 → N.RAD 09-16 14:10 → UNDODEPSDC 09-26 11:27
PROVIDERS: ADMIT Radiology Diagnostic Radiology; ATTEND Radiology Diagnostic Radiology

== ENCOUNTER 2021-11-14 03:33 | Inpatient (IN) ==
[2021-11-14] MEDS ORDERED: ONDANSETRON 4 MG/2 ML VIAL IV STA (04:35)
[2021-11-14] MEDS ORDERED: CLINDAMYCIN INJ 600 MG/50 ML PREMIX IV STA (04:35)
[2021-11-14] MEDS ORDERED: DIPH/TET/ACEL PERT BOOSTER VACCINE 0.5 ML VIAL IM ONE (04:36)
[2021-11-14 06:25] LABS: Basophils # 0.1 10*3/uL (0.0-0.2); Basophils % 0.3 % (0.0-0.8); Eosinophils % 0.2 % (0.00-10.9); Hematocrit 32.2 VOL% (35.7-47.0); Immature Granulocytes % 2.6 %; Immature Granulocytes Absolute 0.58 #; Lymphocytes # 0.9 10*3/uL (1.4-4.0); Lymphocytes % 3.8 % (21.3-54.2); Mean Corpuscular HGB Conc 31.1 GM/DL (32-36); Mean Corpuscular Volume 108.4 FL (87-102); Monocytes # 0.9 10*3/uL (0.11-0.8); Monocytes % 4.1 % (1.7-12.7); Platelet Count 163 T/CUMM (130-400); Red Blood Count 2.97 MC/CUMM (3.8-5.5); White Blood Count 22.7 T/CUMM (4-12)
[2021-11-14 06:52] LABS: Alanine Aminotransferase 17 U/L (13-56); Albumin 2.6 G/DL (3.4-5.0); Alkaline Phosphatase 50 U/L (45-117); Aspartate Amino Transferase 20 U/L (0-37); Blood Urea Nitrogen 38 MG/DL (7-18); Calcium 9.4 MG/DL (8.5-10.1); Carbon Dioxide 28 MMOL/L (21-32); Chloride 98 MMOL/L (98-107); Estimated Glom Filtration Rate 6 ML/MIN; Glucose 144 MG/DL (74-106); Osmolality,Calculated 279.2 MOS/KG (273-304); Potassium 3.8 MMOL/L (3.5-5.1); Sodium 134 MMOL/L (136-145); Total Protein 6.7 G/DL (6.4-8.2)
[2021-11-14 06:53] LABS: Band Neutrophils 2 % (0-10); Eosinophils 2 % (0-10); Lymphocytes 3 % (20-55); Platelet Estimate Adequate; Total Cells Counted 100
[2021-11-14] MEDS ORDERED: VANCOMYCIN INJ 1,000 MG in SODIUM CHLORIDE 0.9% 250 ML IV STA (08:20)
[2021-11-14] MEDS ORDERED: KETOROLAC 30 MG/1 ML VIAL IV STA (09:44)
[2021-11-14] MEDS ORDERED: GLUCAGON 1 MG VIAL IM PRN (09:47)
[2021-11-14] MEDS ORDERED: VANCOMYCIN INJ 750 MG in SODIUM CHLORIDE 0.9% 250 ML IV PRN (09:57)
[2021-11-14 10:20] LABS: Risk Ratio 4.71; Thyroid Stimulating Hormone 4.66 uIU/ml (0.358-3.74); VLDL Cholesterol 20.4 MG/DL
[2021-11-14] MEDS ORDERED: MAGNESIUM SULF RIDER 2 GM/50 ML PREMIX IV ONE (10:25)
[2021-11-14] MEDS ORDERED: DEXTROSE 10% 250 ML BAG IV PRN (10:59)
[2021-11-14] MEDS: ASPIRIN EC 81 MG TABLET PO SCH (11:08)
[2021-11-14] MEDS: INSULIN LISPRO 100 UNIT/ML SUBCUT SCH ×3 (11:30→23:08)
[2021-11-14] MEDS: HEPARIN 5,000 UNIT/1 ML VIAL SUBCUT SCH ×2 (11:40→23:07)
[2021-11-14] MEDS: ONDANSETRON 4 MG/2 ML VIAL IV PRN (12:42)
[2021-11-14] MEDS ORDERED: VANCOMYCIN INJ 1,250 MG in SODIUM CHLORIDE 0.9% 250 ML IV PRN (14:14)
[2021-11-14] MEDS ORDERED: SODIUM CHLORIDE 0.9% 250 ML IV ONE (18:53)
[2021-11-14] MEDS ORDERED: LIDOCAINE 2% 5 ML VIAL ONE (19:12)
[2021-11-14] MEDS ORDERED: propofoL 200 MG/20 ML VIAL IV ONE (19:12)
[2021-11-14] MEDS ORDERED: VANCOMYCIN INJ 2,500 MG in SODIUM CHLORIDE 0.9% 500 ML IV ONE (21:00)
[2021-11-14] MEDS: LEVOTHYROXINE 50 MCG TABLET PO SCH (23:11)
[2021-11-14] MEDS: DOCUSATE SODIUM 100 MG CAPSULE PO SCH (23:22)
[2021-11-15] MEDS: ONDANSETRON 4 MG/2 ML VIAL IV PRN (00:37)
[2021-11-15] MEDS: ACETAMINOPHEN 325 MG TABLET PO PRN (00:47)
[2021-11-15 05:04] LABS: Basophils % 0.2 % (0.0-0.8); Hematocrit 31.4 VOL% (35.7-47.0); Hemoglobin 9.7 GM/DL (12.0-16.0); Immature Granulocytes % 6.4 %; Immature Granulocytes Absolute 1.31 #; Lymphocytes # 0.6 10*3/uL (1.4-4.0); Lymphocytes % 2.8 % (21.3-54.2); Mean Corpuscular HGB Conc 30.9 GM/DL (32-36); Mean Corpuscular Volume 108.7 FL (87-102); Mean Platelet Volume 11.3 FL (9.6-12.0); Monocytes # 0.9 10*3/uL (0.11-0.8); Monocytes % 4.2 % (1.7-12.7); Neutrophils % 86.4 % (38.7-73.9); Platelet Count 162 T/CUMM (130-400); Red Blood Count 2.89 MC/CUMM (3.8-5.5); Red Cell Distribution Width 14.8 % (9.3-17.3); White Blood Count 20.6 T/CUMM (4-12)
[2021-11-15 05:22] LABS: Calcium 9.4 MG/DL (8.5-10.1); Osmolality,Calculated 279.4 MOS/KG (273-304); Potassium 4.2 MMOL/L (3.5-5.1)
[2021-11-15 05:35] LABS: Band Neutrophils 4 % (0-10); Hypochromia 1+; Lymphocytes 1 % (20-55); Total Cells Counted 100
[2021-11-15 05:36] LABS: Macrocytosis Slight
[2021-11-15] MEDS ORDERED: NALOXONE 0.4 MG/ML VIAL IV ONE ×3 (08:24→12:25)
[2021-11-15] MEDS ORDERED: PANTOPRAZOLE 40 MG TABLET PO SCH (09:00)
[2021-11-15] MEDS ORDERED: amLODIPine 2.5 MG TABLET PO SCH (09:00)
[2021-11-15] MEDS: INSULIN LISPRO 100 UNIT/ML SUBCUT SCH ×4 (09:08→20:56)
[2021-11-15] MEDS: SODIUM CHLORIDE 0.9% 250 ML IV ONE ×2 (09:40→13:11)
[2021-11-15] MEDS ORDERED: MAGNESIUM SULF RIDER 4 GM/100 ML PREMIX IV PRN (10:56)
[2021-11-15] MEDS ORDERED: MAGNESIUM SULF RIDER 2 GM/50 ML PREMIX IV PRN (10:56)
[2021-11-15 11:40] LABS: Arterial Base Excess iSTAT -1 MMOL/L (-2.5-2.5); Arterial Bicarbonate iSTAT 27.4 MMOL/L (20-26); Arterial O2 Saturation iSTAT 95 % (95-100); Arterial PCO2 iSTAT 66 MM HG (35-48); Arterial PO2 iSTAT 95 MM HG (80-95); Arterial Total CO2 iSTAT 29 MMO/L (23-27); Arterial pH iSTAT 7.225 (7.35-7.45)
[2021-11-15] MEDS: ROSUVASTATIN 20 MG TABLET PO SCH (13:10)
[2021-11-15] MEDS: FOLIC ACID 1 MG TABLET PO SCH (13:10)
[2021-11-15] MEDS: DOCUSATE SODIUM 100 MG CAPSULE PO SCH ×2 (13:10→20:59)
[2021-11-15] MEDS: CEFEPIME 1,000 MG in SODIUM CHLORIDE 0.9% 100 ML IV SCH ×2 (13:10→18:35)
[2021-11-15] MEDS: ASPIRIN EC 81 MG TABLET PO SCH (13:10)
[2021-11-15] MEDS: allopurinoL 100 MG TABLET PO SCH (13:11)
[2021-11-15 13:26] LABS: Lactic Acid 2.4 MMOL/L (0.4-2.0)
[2021-11-15] MEDS: HEPARIN 5,000 UNIT/1 ML VIAL SUBCUT SCH (14:58)
[2021-11-15] MEDS ORDERED: VANCOMYCIN INJ 1,250 MG in SODIUM CHLORIDE 0.9% 250 ML IV ONE (17:00)
[2021-11-15 17:19] LABS: ABG Base Excess -2.3 MMOL/L (-2.5-2.5); ABG HCO3 22.5 MMOL/L (20-26); ABG Oxygen Saturation 99.5 % (95-100); ABG PCO2 64.3 MM HG (35-48); ABG PH 7.223 (7.35-7.45); ABG TCO2 24.7 MMOL/L (23-27)
[2021-11-15] MEDS: SODIUM HYPOCHLORITE 0.25% IRRIG 473 ML BOTTLE TOP SCH (17:35)
[2021-11-15 17:43] LABS: INR 3.4; PT Patient Result 34.2 SECS (10.5-12.0)
[2021-11-15] MEDS ORDERED: HEPARIN 10,000 UNIT/10 ML VIAL IV SCH (17:45)
[2021-11-15 19:38] LABS: ABG Base Excess -4.2 MMOL/L (-2.5-2.5); ABG HCO3 20.9 MMOL/L (20-26); ABG Oxygen Saturation 99.3 % (95-100); ABG PCO2 47.2 MM HG (35-48); ABG PH 7.286 (7.35-7.45); ABG TCO2 20.8 MMOL/L (23-27)
[2021-11-15] MEDS: HEPARIN DRIP 25,000 UNITS/500 ML PREMIX IV SCH (20:59)
[2021-11-15] MEDS: LEVOTHYROXINE 50 MCG TABLET PO SCH (20:59)
[2021-11-15] MEDS ORDERED: GABAPENTIN 100 MG CAPSULE PO SCH (21:00)
[2021-11-16 03:25] LABS: ABG Base Excess -2.2 MMOL/L (-2.5-2.5); ABG HCO3 22.6 MMOL/L (20-26); ABG PCO2 64.4 MM HG (35-48); ABG PH 7.223 (7.35-7.45); ABG TCO2 24.9 MMOL/L (23-27)
[2021-11-16 03:26] LABS: Basophils # 0.1 10*3/uL (0.0-0.2); Basophils % 0.3 % (0.0-0.8); Eosinophils % 0.1 % (0.00-10.9); Hematocrit 31.1 VOL% (35.7-47.0); Hemoglobin 9.6 GM/DL (12.0-16.0); Immature Granulocytes % 5.2 %; Immature Granulocytes Absolute 1.12 #; Lymphocytes # 0.7 10*3/uL (1.4-4.0); Lymphocytes % 3.2 % (21.3-54.2); Mean Corpuscular HGB Conc 30.9 GM/DL (32-36); Mean Corpuscular Volume 108.4 FL (87-102); Mean Platelet Volume 11.5 FL (9.6-12.0); Monocytes # 0.9 10*3/uL (0.11-0.8); Monocytes % 4.2 % (1.7-12.7); NRBC # 0.06 10*3/uL; Platelet Count 189 T/CUMM (130-400); Red Blood Count 2.87 MC/CUMM (3.8-5.5); White Blood Count 21.7 T/CUMM (4-12)
[2021-11-16 03:33] LABS: Phosphorous 5.5 MG/DL (2.5-4.9); Uric Acid 3.7 MG/DL (2.6-6.0)
[2021-11-16 03:35] LABS: INR 2.3; PT Patient Result 24.1 SECS (10.5-12.0)
[2021-11-16 03:37] LABS: Albumin 2.2 G/DL (3.4-5.0); Bilirubin,Total 0.5 MG/DL (0.20-1.00); Calcium 8.9 MG/DL (8.5-10.1); Osmolality,Calculated 279.2 MOS/KG (273-304); Potassium 4.1 MMOL/L (3.5-5.1); Total Protein 6.6 G/DL (6.4-8.2)
[2021-11-16 03:51] LABS: Hypochromia 1+; Lymphocytes 5 % (20-55); Microcytosis 1+; Nucleated Red Blood Cells 1 (0-5); Platelet Estimate Adequate; Total Cells Counted 100
[2021-11-16 04:41] LABS: Folate 3.15 NG/ML (5.38-24.0)
[2021-11-16 05:52] LABS: Hepatitis B Core IgM Quant 0.69 Index; Hepatitis B Surface Ag Quant < 0.10 Index; Hepatitis B Surface Ag Result Non-Reactive (NonReactive); Hepatitis C Virus Ab Quant < 0.02 Index; Hepatitis C Virus Ab Result Non-Reactive (NonReactive)
[2021-11-16] MEDS: HEPARIN DRIP 25,000 UNITS/500 ML PREMIX IV SCH ×2 (06:44→20:22)
[2021-11-16] MEDS: INSULIN LISPRO 100 UNIT/ML SUBCUT SCH ×4 (07:17→20:00)
[2021-11-16] MEDS: DOCUSATE SODIUM 100 MG CAPSULE PO SCH ×2 (08:45→20:00)
[2021-11-16] MEDS: SODIUM HYPOCHLORITE 0.25% IRRIG 473 ML BOTTLE TOP SCH (08:45)
[2021-11-16] MEDS: ASPIRIN EC 81 MG TABLET PO SCH (08:45)
[2021-11-16] MEDS: ROSUVASTATIN 20 MG TABLET PO SCH (08:45)
[2021-11-16] MEDS: FOLIC ACID 1 MG TABLET PO SCH (08:45)
[2021-11-16] MEDS: allopurinoL 100 MG TABLET PO SCH (08:45)
[2021-11-16] MEDS: ONDANSETRON 4 MG/2 ML VIAL IV PRN (11:27)
[2021-11-16] MEDS ORDERED: fentaNYL 100 MCG/2 ML VIAL IV ONE (12:00)
[2021-11-16] MEDS ORDERED: VANCOMYCIN INJ 750 MG in SODIUM CHLORIDE 0.9% 250 ML IV ONE (12:00)
[2021-11-16] MEDS ORDERED: MIDAZOLAM 2 MG/2 ML VIAL IV ONE (12:00)
[2021-11-16] MEDS ORDERED: HEPARIN/NACL 0.9% 2 UNITS/ML 4,000 UNIT/2,000 ML BAG IV ONE (15:40)
[2021-11-16] MEDS ORDERED: HEPARIN 5,000 UNIT/1 ML VIAL ONE (16:00)
[2021-11-16] MEDS ORDERED: SODIUM HYPOCHLORITE 0.25% IRRIG 473 ML BOTTLE TOP SCH (16:37)
[2021-11-16] MEDS ORDERED: HEPARIN 5,000 UNIT/1 ML VIAL IV ONE (17:23)
[2021-11-16] MEDS: CEFEPIME 1,000 MG in SODIUM CHLORIDE 0.9% 100 ML IV SCH (19:09)
[2021-11-16] MEDS: LEVOTHYROXINE 50 MCG TABLET PO SCH (20:00)
[2021-11-16] MEDS ORDERED: MORPHINE 2 MG/1 ML SYRINGE IV ONE (23:05)
[2021-11-17] MEDS: ONDANSETRON 4 MG/2 ML VIAL IV PRN (02:47)
[2021-11-17 02:52] LABS: ABG Base Excess -2.5 MMOL/L (-2.5-2.5); ABG HCO3 22.3 MMOL/L (20-26); ABG Oxygen Saturation 99.4 % (95-100); ABG PCO2 42.7 MM HG (35-48); ABG PH 7.342 (7.35-7.45); ABG TCO2 21.2 MMOL/L (23-27)
[2021-11-17 02:54] LABS: Basophils # 0.1 10*3/uL (0.0-0.2); Basophils % 0.3 % (0.0-0.8); Eosinophils # 0.1 10*3/uL (0.0-0.87); Eosinophils % 0.4 % (0.00-10.9); Hemoglobin 9.5 GM/DL (12.0-16.0); Immature Granulocytes % 1.8 %; Immature Granulocytes Absolute 0.38 #; Lymphocytes # 0.8 10*3/uL (1.4-4.0); Lymphocytes % 3.9 % (21.3-54.2); Mean Corpuscular HGB Conc 31.7 GM/DL (32-36); Mean Corpuscular Volume 105.3 FL (87-102); Mean Platelet Volume 11.4 FL (9.6-12.0); Monocytes % 4.6 % (1.7-12.7); NRBC # 0.14 10*3/uL; Platelet Count 205 T/CUMM (130-400); Red Blood Count 2.85 MC/CUMM (3.8-5.5); White Blood Count 20.8 T/CUMM (4-12)
[2021-11-17 03:10] LABS: Calcium 9.3 MG/DL (8.5-10.1); Osmolality,Calculated 277.2 MOS/KG (273-304); Potassium 4.2 MMOL/L (3.5-5.1)
[2021-11-17 03:57] LABS: Lymphocytes 7 % (20-55); Platelet Estimate Adequate; Total Cells Counted 100
[2021-11-17] MEDS: HEPARIN DRIP 25,000 UNITS/500 ML PREMIX IV SCH ×2 (05:18→16:40)
[2021-11-17] MEDS: INSULIN LISPRO 100 UNIT/ML SUBCUT SCH ×4 (07:04→20:01)
[2021-11-17] MEDS: SODIUM CHLORIDE 0.45% 1,000 ML IV SCH ×2 (08:09→11:11)
[2021-11-17] MEDS: DOCUSATE SODIUM 100 MG CAPSULE PO SCH ×2 (09:10→20:46)
[2021-11-17] MEDS: ASPIRIN EC 81 MG TABLET PO SCH (09:10)
[2021-11-17] MEDS: SODIUM HYPOCHLORITE 0.25% IRRIG 473 ML BOTTLE TOP SCH (09:11)
[2021-11-17] MEDS: FOLIC ACID 1 MG TABLET PO SCH (09:11)
[2021-11-17] MEDS: allopurinoL 100 MG TABLET PO SCH (09:11)
[2021-11-17] MEDS: ROSUVASTATIN 20 MG TABLET PO SCH (09:11)
[2021-11-17] MEDS: ACETAMINOPHEN 325 MG TABLET PO PRN (11:20)
[2021-11-17] MEDS ORDERED: fentaNYL 100 MCG/2 ML VIAL ONE (12:20)
[2021-11-17] MEDS ORDERED: SUCCINYLCHOLINE 200 MG/10 ML VIAL ONE (12:21)
[2021-11-17] MEDS ORDERED: LIDOCAINE 2% 5 ML VIAL ONE (12:21)
[2021-11-17] MEDS ORDERED: propofoL 200 MG/20 ML VIAL IV ONE (12:21)
[2021-11-17] MEDS ORDERED: ROCURONIUM 50 MG/5 ML VIAL IV ONE (12:30)
[2021-11-17] MEDS ORDERED: DEXMEDETOMIDINE 200 MCG/2 ML VIAL ONE (12:41)
[2021-11-17] MEDS ORDERED: MIDAZOLAM 2 MG/2 ML VIAL ONE (13:00)
[2021-11-17] MEDS ORDERED: KETAMINE 500 MG/10 ML VIAL ONE (13:30)
[2021-11-17 16:02] LABS: Arterial Base Excess iSTAT -1 MMOL/L (-2.5-2.5); Arterial O2 Saturation iSTAT 94 % (95-100); Arterial PCO2 iSTAT 63 MM HG (35-48); Arterial PO2 iSTAT 83 MM HG (80-95); Arterial Total CO2 iSTAT 29 MMO/L (23-27); Arterial pH iSTAT 7.243 (7.35-7.45)
[2021-11-17] MEDS: CEFEPIME 1,000 MG in SODIUM CHLORIDE 0.9% 100 ML IV SCH (17:27)
[2021-11-17] MEDS: LEVOTHYROXINE 50 MCG TABLET PO SCH (20:46)
[2021-11-18 04:16] LABS: Basophils # 0.1 10*3/uL (0.0-0.2); Basophils % 0.5 % (0.0-0.8); Eosinophils % 0.2 % (0.00-10.9); Hematocrit 27.1 VOL% (35.7-47.0); Hemoglobin 8.8 GM/DL (12.0-16.0); Immature Granulocytes % 6.8 %; Immature Granulocytes Absolute 1.14 #; Lymphocytes # 0.9 10*3/uL (1.4-4.0); Lymphocytes % 5.6 % (21.3-54.2); Mean Corpuscular HGB Conc 32.5 GM/DL (32-36); Mean Corpuscular Volume 103.8 FL (87-102); Mean Platelet Volume 10.5 FL (9.6-12.0); Monocytes # 0.9 10*3/uL (0.11-0.8); Monocytes % 5.5 % (1.7-12.7); NRBC # 0.15 10*3/uL; Neutrophils % 81.4 % (38.7-73.9); Platelet Count 196 T/CUMM (130-400); Red Blood Count 2.61 MC/CUMM (3.8-5.5); Red Cell Distribution Width 15.2 % (9.3-17.3); White Blood Count 16.8 T/CUMM (4-12)
[2021-11-18 04:35] LABS: Lymphocytes 7 % (20-55); Total Cells Counted 100
[2021-11-18 04:36] LABS: Platelet Estimate Normal
[2021-11-18 04:49] LABS: Calcium 9.3 MG/DL (8.5-10.1); Osmolality,Calculated 277.4 MOS/KG (273-304); Potassium 4.4 MMOL/L (3.5-5.1)
[2021-11-18 08:11] LABS: ABG Base Excess -1.7 MMOL/L (-2.5-2.5); ABG Oxygen Saturation 99.2 % (95-100); ABG PH 7.366 (7.35-7.45); ABG TCO2 21.7 MMOL/L (23-27)
[2021-11-18] MEDS: ASPIRIN EC 81 MG TABLET PO SCH (08:12)
[2021-11-18] MEDS: DOCUSATE SODIUM 100 MG CAPSULE PO SCH ×2 (08:12→20:22)
[2021-11-18] MEDS: SODIUM HYPOCHLORITE 0.25% IRRIG 473 ML BOTTLE TOP SCH (08:12)
[2021-11-18] MEDS: INSULIN LISPRO 100 UNIT/ML SUBCUT SCH ×4 (08:12→20:22)
[2021-11-18] MEDS: ROSUVASTATIN 20 MG TABLET PO SCH (08:12)
[2021-11-18] MEDS: allopurinoL 100 MG TABLET PO SCH (08:13)
[2021-11-18] MEDS: FOLIC ACID 1 MG TABLET PO SCH (08:13)
[2021-11-18] MEDS: HEPARIN DRIP 25,000 UNITS/500 ML PREMIX IV SCH ×2 (09:11→17:19)
[2021-11-18] MEDS: ACETAMINOPHEN 325 MG TABLET PO PRN (15:47)
[2021-11-18] MEDS: CEFEPIME 1,000 MG in SODIUM CHLORIDE 0.9% 100 ML IV SCH (17:18)
[2021-11-18] MEDS: LEVOTHYROXINE 50 MCG TABLET PO SCH (20:22)
[2021-11-19 03:48] LABS: Basophils # 0.2 10*3/uL (0.0-0.2); Eosinophils # 0.1 10*3/uL (0.0-0.87); Eosinophils % 0.4 % (0.00-10.9); Hematocrit 27.9 VOL% (35.7-47.0); Immature Granulocytes % 13.9 %; Lymphocytes % 5.6 % (21.3-54.2); Mean Corpuscular HGB Conc 32.3 GM/DL (32-36); Mean Corpuscular Volume 104.9 FL (87-102); Mean Platelet Volume 10.6 FL (9.6-12.0); Monocytes # 1.1 10*3/uL (0.11-0.8); Monocytes % 6.2 % (1.7-12.7); NRBC # 0.17 10*3/uL; Neutrophils % 72.9 % (38.7-73.9); Platelet Count 214 T/CUMM (130-400); Red Blood Count 2.66 MC/CUMM (3.8-5.5); Red Cell Distribution Width 15.5 % (9.3-17.3); White Blood Count 17.3 T/CUMM (4-12)
[2021-11-19 03:59] LABS: INR 3.2; PT Patient Result 32.6 SECS (10.5-12.0)
[2021-11-19 04:09] LABS: Platelet Estimate Adequate
[2021-11-19 04:10] LABS: Acanthocytes Few; Poikilocytosis Slight
[2021-11-19 04:24] LABS: Calcium 9.5 MG/DL (8.5-10.1); Osmolality,Calculated 275.2 MOS/KG (273-304); Potassium 3.6 MMOL/L (3.5-5.1)
[2021-11-19 06:54] LABS: Lymphocytes 7 % (20-55); Total Cells Counted 100
[2021-11-19] MEDS: INSULIN LISPRO 100 UNIT/ML SUBCUT SCH ×4 (08:54→20:32)
[2021-11-19] MEDS: ASPIRIN EC 81 MG TABLET PO SCH (08:55)
[2021-11-19] MEDS: DOCUSATE SODIUM 100 MG CAPSULE PO SCH ×2 (08:55→20:31)
[2021-11-19] MEDS: ROSUVASTATIN 20 MG TABLET PO SCH (08:55)
[2021-11-19] MEDS: SODIUM HYPOCHLORITE 0.25% IRRIG 473 ML BOTTLE TOP SCH (08:55)
[2021-11-19] MEDS: allopurinoL 100 MG TABLET PO SCH (08:55)
[2021-11-19] MEDS: FOLIC ACID 1 MG TABLET PO SCH (08:55)
[2021-11-19] MEDS: HEPARIN DRIP 25,000 UNITS/500 ML PREMIX IV SCH ×2 (09:58→16:58)
[2021-11-19] MEDS ORDERED: VANCOMYCIN INJ 1,250 MG in SODIUM CHLORIDE 0.9% 250 ML IV ONE (14:00)
[2021-11-19] MEDS ORDERED: HEPARIN 5,000 UNIT/1 ML VIAL IV ONE (15:00)
[2021-11-19] MEDS: CEFEPIME 1,000 MG in SODIUM CHLORIDE 0.9% 100 ML IV SCH (16:00)
[2021-11-19] MEDS: LEVOTHYROXINE 50 MCG TABLET PO SCH (20:32)
[2021-11-20] MEDS: INSULIN LISPRO 100 UNIT/ML SUBCUT SCH ×4 (09:08→20:17)
[2021-11-20] MEDS ORDERED: MIDAZOLAM 2 MG/2 ML VIAL ONE ×2 (09:57→10:07)
[2021-11-20] MEDS: SODIUM HYPOCHLORITE 0.25% IRRIG 473 ML BOTTLE TOP SCH (10:07)
[2021-11-20] MEDS ORDERED: propofoL 200 MG/20 ML VIAL IV ONE (10:08)
[2021-11-20] MEDS ORDERED: BUPIVACAINE MPF 0.25% 30 ML VIAL ONE (10:14)
[2021-11-20] MEDS ORDERED: PHENYLEPHRINE 1 MG/10 ML SYRINGE IV ONE (10:17)
[2021-11-20] MEDS ORDERED: GLYCOPYRROLATE 0.4 MG/2 ML VIAL ONE (10:19)
[2021-11-20] MEDS ORDERED: KETAMINE 500 MG/10 ML VIAL ONE (10:19)
[2021-11-20] MEDS ORDERED: MORPHINE 10 MG/1 ML VIAL ONE (10:51)
[2021-11-20] MEDS: MORPHINE 2 MG/1 ML SYRINGE IV PRN ×2 (10:52→20:17)
[2021-11-20] MEDS ORDERED: VANCOMYCIN INJ 1,250 MG in SODIUM CHLORIDE 0.9% 250 ML IV PRN (12:00)
[2021-11-20] MEDS: DOCUSATE SODIUM 100 MG CAPSULE PO SCH ×2 (13:01→20:16)
[2021-11-20] MEDS: ROSUVASTATIN 20 MG TABLET PO SCH (13:01)
[2021-11-20] MEDS: FOLIC ACID 1 MG TABLET PO SCH (13:01)
[2021-11-20] MEDS: ASPIRIN EC 81 MG TABLET PO SCH (13:01)
[2021-11-20] MEDS: allopurinoL 100 MG TABLET PO SCH (13:01)
[2021-11-20] MEDS: CEFEPIME 1,000 MG in SODIUM CHLORIDE 0.9% 100 ML IV SCH (18:32)
[2021-11-20] MEDS: HEPARIN DRIP 25,000 UNITS/500 ML PREMIX IV SCH (18:33)
[2021-11-20] MEDS: LEVOTHYROXINE 50 MCG TABLET PO SCH (20:16)
[2021-11-21 04:16] LABS: Basophils # 0.1 10*3/uL (0.0-0.2); Basophils % 0.2 % (0.0-0.8); Eosinophils # 0.2 10*3/uL (0.0-0.87); Eosinophils % 0.7 % (0.00-10.9); Hemoglobin 9.1 GM/DL (12.0-16.0); Immature Granulocytes % 11.6 %; Immature Granulocytes Absolute 2.82 #; Lymphocytes # 1.3 10*3/uL (1.4-4.0); Lymphocytes % 5.3 % (21.3-54.2); Mean Corpuscular HGB Conc 31.4 GM/DL (32-36); Mean Platelet Volume 10.9 FL (9.6-12.0); Monocytes % 3.9 % (1.7-12.7); Neutrophils % 78.3 % (38.7-73.9); Platelet Count 224 T/CUMM (130-400); Red Blood Count 2.71 MC/CUMM (3.8-5.5); White Blood Count 24.4 T/CUMM (4-12)
[2021-11-21 04:24] LABS: Calcium 9.5 MG/DL (8.5-10.1); Osmolality,Calculated 282.2 MOS/KG (273-304); Potassium 4.2 MMOL/L (3.5-5.1)
[2021-11-21 04:43] LABS: Lymphocytes 10 % (20-55); Nucleated Red Blood Cells 1 (0-5); Platelet Estimate Adequate; Total Cells Counted 100
[2021-11-21] MEDS: INSULIN LISPRO 100 UNIT/ML SUBCUT SCH ×4 (08:20→22:50)
[2021-11-21] MEDS: FOLIC ACID 1 MG TABLET PO SCH (08:52)
[2021-11-21] MEDS: allopurinoL 100 MG TABLET PO SCH (08:52)
[2021-11-21] MEDS: ROSUVASTATIN 20 MG TABLET PO SCH (08:52)
[2021-11-21] MEDS: ASPIRIN EC 81 MG TABLET PO SCH (08:52)
[2021-11-21] MEDS: DOCUSATE SODIUM 100 MG CAPSULE PO SCH ×2 (08:52→20:48)
[2021-11-21] MEDS: MORPHINE 2 MG/1 ML SYRINGE IV PRN (09:00)
[2021-11-21] MEDS: SODIUM HYPOCHLORITE 0.25% IRRIG 473 ML BOTTLE TOP SCH (09:50)
[2021-11-21] MEDS ORDERED: HYDROmorphone 1 MG/1 ML SYRINGE IV PRN ×2 (10:52)
[2021-11-21] MEDS ORDERED: VANCOMYCIN INJ 1,250 MG in SODIUM CHLORIDE 0.9% 250 ML IV ONE ×2 (17:00→22:00)
[2021-11-21] MEDS: CEFEPIME 1,000 MG in SODIUM CHLORIDE 0.9% 100 ML IV SCH (18:51)
[2021-11-21] MEDS: LEVOTHYROXINE 50 MCG TABLET PO SCH (20:48)
[2021-11-22 06:47] LABS: Basophils % 0.1 % (0.0-0.8); Eosinophils # 0.2 10*3/uL (0.0-0.87); Eosinophils % 0.8 % (0.00-10.9); Hematocrit 28.3 VOL% (35.7-47.0); Immature Granulocytes % 8.4 %; Immature Granulocytes Absolute 2.42 #; Lymphocytes # 1.3 10*3/uL (1.4-4.0); Lymphocytes % 4.6 % (21.3-54.2); Mean Corpuscular HGB Conc 31.8 GM/DL (32-36); Mean Corpuscular Volume 106.8 FL (87-102); Mean Platelet Volume 10.8 FL (9.6-12.0); Monocytes # 1.2 10*3/uL (0.11-0.8); Monocytes % 4.1 % (1.7-12.7); NRBC # 0.12 10*3/uL; Platelet Count 209 T/CUMM (130-400); Red Blood Count 2.65 MC/CUMM (3.8-5.5); Red Cell Distribution Width 16.4 % (9.3-17.3); White Blood Count 28.9 T/CUMM (4-12)
[2021-11-22 07:07] LABS: Band Neutrophils 4 % (0-10); Eosinophils 2 % (0-10); Lymphocytes 3 % (20-55); Total Cells Counted 100
[2021-11-22 07:08] LABS: Macrocytosis 1+
[2021-11-22 07:09] LABS: Platelet Estimate Normal; Polychromasia Slight
[2021-11-22 07:12] LABS: Calcium 8.5 MG/DL (8.5-10.1); Osmolality,Calculated 275.4 MOS/KG (273-304); Potassium 4.8 MMOL/L (3.5-5.1)
[2021-11-22] MEDS: INSULIN LISPRO 100 UNIT/ML SUBCUT SCH ×4 (07:55→20:59)
[2021-11-22] MEDS ORDERED: SIMETHICONE CHEW 125 MG TABLET PO PRN (08:15)
[2021-11-22] MEDS: SODIUM HYPOCHLORITE 0.25% IRRIG 473 ML BOTTLE TOP SCH (09:00)
[2021-11-22] MEDS: DOCUSATE SODIUM 100 MG CAPSULE PO SCH ×2 (09:07→21:16)
[2021-11-22] MEDS: allopurinoL 100 MG TABLET PO SCH (09:07)
[2021-11-22] MEDS: FOLIC ACID 1 MG TABLET PO SCH (09:07)
[2021-11-22] MEDS: ROSUVASTATIN 20 MG TABLET PO SCH (09:07)
[2021-11-22] MEDS: ASPIRIN EC 81 MG TABLET PO SCH (09:07)
[2021-11-22] MEDS ORDERED: fentaNYL 100 MCG/2 ML VIAL ONE (13:42)
[2021-11-22] MEDS ORDERED: SEVOFLURANE 1 UNIT/15 MINUTE INH ONE ×7 (13:42→15:38)
[2021-11-22] MEDS ORDERED: LIDOCAINE 2% 5 ML VIAL ONE (13:42)
[2021-11-22] MEDS ORDERED: propofoL 200 MG/20 ML VIAL IV ONE (13:42)
[2021-11-22] MEDS ORDERED: SUCCINYLCHOLINE 200 MG/10 ML VIAL ONE (13:42)
[2021-11-22] MEDS ORDERED: MIDAZOLAM 2 MG/2 ML VIAL ONE (13:43)
[2021-11-22] MEDS ORDERED: ROCURONIUM 50 MG/5 ML VIAL IV ONE (13:43)
[2021-11-22] MEDS ORDERED: SODIUM CHLORIDE 0.9% 250 ML IV SCH (14:00)
[2021-11-22] MEDS ORDERED: PHENYLEPHRINE 10 MG/1 ML VIAL IV ONE ×2 (14:36)
[2021-11-22] MEDS ORDERED: SODIUM CHLORIDE 0.9% 500 ML IV ONE ×2 (14:57→18:30)
[2021-11-22] MEDS ORDERED: GLYCOPYRROLATE 0.4 MG/2 ML VIAL ONE (14:57)
[2021-11-22] MEDS ORDERED: KETAMINE 500 MG/10 ML VIAL ONE (14:57)
[2021-11-22] MEDS ORDERED: CEFEPIME 1,000 MG in SODIUM CHLORIDE 0.9% 100 ML IV SCH (17:00)
[2021-11-22] MEDS ORDERED: SODIUM CHLORIDE 0.9% 250 ML IV ONE (18:30)
[2021-11-22 19:11] LABS: Basophils % 0.1 % (0.0-0.8); Eosinophils # 0.1 10*3/uL (0.0-0.87); Eosinophils % 0.4 % (0.00-10.9); Hematocrit 30.9 VOL% (35.7-47.0); Hemoglobin 9.2 GM/DL (12.0-16.0); Immature Granulocytes % 9.1 %; Immature Granulocytes Absolute 2.67 #; Lymphocytes % 3.5 % (21.3-54.2); Mean Corpuscular HGB Conc 29.8 GM/DL (32-36); Mean Corpuscular Volume 114.4 FL (87-102); Monocytes # 1.3 10*3/uL (0.11-0.8); Monocytes % 4.5 % (1.7-12.7); NRBC # 0.11 10*3/uL; Neutrophils % 82.4 % (38.7-73.9); Platelet Count 152 T/CUMM (130-400); Red Cell Distribution Width 16.7 % (9.3-17.3); White Blood Count 29.3 T/CUMM (4-12)
[2021-11-22 20:13] LABS: Band Neutrophils 1 % (0-10); Lymphocytes 4 % (20-55); Metamyelocytes 4 %; Myelocytes 2 %; Total Cells Counted 100
[2021-11-22 20:14] LABS: Anisocytosis 1+; Macrocytosis 2+; Platelet Estimate Adequate
[2021-11-22] MEDS: GABAPENTIN 300 MG CAPSULE PO SCH (21:15)
[2021-11-22] MEDS: LEVOTHYROXINE 50 MCG TABLET PO SCH (21:16)
[2021-11-23] MEDS: GABAPENTIN 300 MG CAPSULE PO SCH ×3 (08:23→21:27)
[2021-11-23] MEDS: ASPIRIN EC 81 MG TABLET PO SCH (08:23)
[2021-11-23] MEDS: FOLIC ACID 1 MG TABLET PO SCH (08:23)
[2021-11-23] MEDS: allopurinoL 100 MG TABLET PO SCH (08:23)
[2021-11-23] MEDS: DOCUSATE SODIUM 100 MG CAPSULE PO SCH ×2 (08:23→21:27)
[2021-11-23] MEDS: ROSUVASTATIN 20 MG TABLET PO SCH (08:25)
[2021-11-23] MEDS: INSULIN LISPRO 100 UNIT/ML SUBCUT SCH ×4 (08:25→22:14)
[2021-11-23] MEDS: SODIUM HYPOCHLORITE 0.25% IRRIG 473 ML BOTTLE TOP SCH (08:25)
[2021-11-23 08:35] LABS: Basophils # 0.1 10*3/uL (0.0-0.2); Basophils % 0.6 % (0.0-0.8); Eosinophils # 0.2 10*3/uL (0.0-0.87); Eosinophils % 0.7 % (0.00-10.9); Hematocrit 26.2 VOL% (35.7-47.0); Hemoglobin 8.5 GM/DL (12.0-16.0); Immature Granulocytes % 8.2 %; Immature Granulocytes Absolute 1.74 #; Lymphocytes # 1.4 10*3/uL (1.4-4.0); Lymphocytes % 6.6 % (21.3-54.2); Mean Corpuscular HGB Conc 32.4 GM/DL (32-36); Mean Corpuscular Volume 105.6 FL (87-102); Mean Platelet Volume 10.8 FL (9.6-12.0); Monocytes # 0.9 10*3/uL (0.11-0.8); Monocytes % 4.4 % (1.7-12.7); Neutrophils % 79.5 % (38.7-73.9); Platelet Count 191 T/CUMM (130-400); Red Blood Count 2.48 MC/CUMM (3.8-5.5); Red Cell Distribution Width 16.1 % (9.3-17.3); White Blood Count 21.3 T/CUMM (4-12)
[2021-11-23 08:48] LABS: Band Neutrophils 2 % (0-10); Lymphocytes 8 % (20-55); Metamyelocytes 2 %; Myelocytes 4 %; Total Cells Counted 100
[2021-11-23 08:50] LABS: Macrocytosis 2+
[2021-11-23 08:51] LABS: Platelet Estimate Adequate; Polychromasia Slight
[2021-11-23 08:58] LABS: Calcium 9.1 MG/DL (8.5-10.1); Osmolality,Calculated 278.5 MOS/KG (273-304); Potassium 5.1 MMOL/L (3.5-5.1)
[2021-11-23] MEDS ORDERED: ALTEPLASE 2 MG VIAL IV ONE (15:00)
[2021-11-23] MEDS ORDERED: VANCOMYCIN INJ 1,250 MG in SODIUM CHLORIDE 0.9% 250 ML IV ONE (17:00)
[2021-11-23] MEDS: LEVOTHYROXINE 50 MCG TABLET PO SCH (21:27)
[2021-11-24] MEDS: INSULIN LISPRO 100 UNIT/ML SUBCUT SCH ×4 (08:38→20:40)
[2021-11-24] MEDS: ASPIRIN EC 81 MG TABLET PO SCH (08:38)
[2021-11-24] MEDS: DOCUSATE SODIUM 100 MG CAPSULE PO SCH ×2 (08:38→20:45)
[2021-11-24] MEDS: FOLIC ACID 1 MG TABLET PO SCH (08:38)
[2021-11-24] MEDS: GABAPENTIN 300 MG CAPSULE PO SCH ×3 (08:38→20:45)
[2021-11-24] MEDS: allopurinoL 100 MG TABLET PO SCH (08:38)
[2021-11-24] MEDS ORDERED: KETOROLAC 30 MG/1 ML VIAL IV PRN (08:53)
[2021-11-24] MEDS ORDERED: SODIUM CHLORIDE 0.9% 250 ML IV SCH (09:00)
[2021-11-24] MEDS: ROSUVASTATIN 20 MG TABLET PO SCH (09:41)
[2021-11-24 10:26] LABS: Basophils # 0.1 10*3/uL (0.0-0.2); Basophils % 0.4 % (0.0-0.8); Eosinophils # 0.2 10*3/uL (0.0-0.87); Eosinophils % 1.2 % (0.00-10.9); Hematocrit 25.3 VOL% (35.7-47.0); Hemoglobin 7.9 GM/DL (12.0-16.0); Immature Granulocytes Absolute 0.98 #; Lymphocytes % 6.2 % (21.3-54.2); Mean Corpuscular HGB Conc 31.2 GM/DL (32-36); Mean Corpuscular Volume 108.1 FL (87-102); Mean Platelet Volume 10.4 FL (9.6-12.0); Monocytes # 0.9 10*3/uL (0.11-0.8); Monocytes % 5.3 % (1.7-12.7); Neutrophils % 80.9 % (38.7-73.9); Platelet Count 162 T/CUMM (130-400); Red Blood Count 2.34 MC/CUMM (3.8-5.5); Red Cell Distribution Width 16.1 % (9.3-17.3); White Blood Count 16.5 T/CUMM (4-12)
[2021-11-24 10:53] LABS: Band Neutrophils 2 % (0-10); Calcium 8.6 MG/DL (8.5-10.1); Eosinophils 2 % (0-10); Lymphocytes 10 % (20-55); Nucleated Red Blood Cells 2 (0-5); Platelet Estimate Adequate; Potassium 4.1 MMOL/L (3.5-5.1); Total Cells Counted 100
[2021-11-24 10:54] LABS: INR 1.2; PT Patient Result 13.5 SECS (10.5-12.0)
[2021-11-24 10:54] LABS: Hypochromia Slight
[2021-11-24 11:15] LABS: Arterial Base Excess iSTAT 0 MMOL/L (-2.5-2.5); Arterial Bicarbonate iSTAT 27.3 MMOL/L (20-26); Arterial O2 Saturation iSTAT 95 % (95-100); Arterial PCO2 iSTAT 60 MM HG (35-48); Arterial PO2 iSTAT 90 MM HG (80-95); Arterial Total CO2 iSTAT 29 MMO/L (23-27); Arterial pH iSTAT 7.268 (7.35-7.45)
[2021-11-24] MEDS: SODIUM HYPOCHLORITE 0.25% IRRIG 473 ML BOTTLE TOP SCH (15:18)
[2021-11-24] MEDS: WARFARIN 5 MG TABLET PO SCH (17:44)
[2021-11-24] MEDS: LEVOTHYROXINE 50 MCG TABLET PO SCH (20:45)
[2021-11-25 07:27] LABS: Basophils # 0.1 10*3/uL (0.0-0.2); Basophils % 0.5 % (0.0-0.8); Eosinophils # 0.2 10*3/uL (0.0-0.87); Eosinophils % 1.3 % (0.00-10.9); Hematocrit 25.8 VOL% (35.7-47.0); Hemoglobin 7.7 GM/DL (12.0-16.0); Immature Granulocytes % 6.5 %; Lymphocytes # 1.2 10*3/uL (1.4-4.0); Lymphocytes % 8.7 % (21.3-54.2); Mean Corpuscular HGB Conc 29.8 GM/DL (32-36); Mean Corpuscular Volume 109.8 FL (87-102); Mean Platelet Volume 10.2 FL (9.6-12.0); Monocytes # 0.9 10*3/uL (0.11-0.8); Monocytes % 6.6 % (1.7-12.7); NRBC # 0.16 10*3/uL; Neutrophils % 76.4 % (38.7-73.9); Platelet Count 160 T/CUMM (130-400); Red Blood Count 2.35 MC/CUMM (3.8-5.5); Red Cell Distribution Width 16.5 % (9.3-17.3); White Blood Count 13.8 T/CUMM (4-12)
[2021-11-25 07:42] LABS: Calcium 8.9 MG/DL (8.5-10.1); Osmolality,Calculated 286.1 MOS/KG (273-304); Potassium 4.4 MMOL/L (3.5-5.1)
[2021-11-25 07:46] LABS: Phosphorous 5.5 MG/DL (2.5-4.9); Uric Acid 4.4 MG/DL (2.6-6.0)
[2021-11-25 07:50] LABS: Band Neutrophils 2 % (0-10); Eosinophils 3 % (0-10); Lymphocytes 8 % (20-55); Macrocytosis 1+; Metamyelocytes 1 %; Myelocytes 2 %; Nucleated Red Blood Cells 1 (0-5); Total Cells Counted 100
[2021-11-25 07:51] LABS: Platelet Estimate Adequate
[2021-11-25] MEDS ORDERED: POTASSIUM CHLORIDE 20 MEQ TABLET PO ONE (08:46)
[2021-11-25] MEDS: INSULIN LISPRO 100 UNIT/ML SUBCUT SCH ×4 (10:02→20:20)
[2021-11-25] MEDS: GABAPENTIN 300 MG CAPSULE PO SCH ×3 (10:03→20:19)
[2021-11-25 12:08] LABS: INR 1.2; PT Patient Result 12.9 SECS (10.5-12.0)
[2021-11-25] MEDS: FOLIC ACID 1 MG TABLET PO SCH (15:39)
[2021-11-25] MEDS: DOCUSATE SODIUM 100 MG CAPSULE PO SCH ×2 (15:39→20:19)
[2021-11-25] MEDS: allopurinoL 100 MG TABLET PO SCH (15:39)
[2021-11-25] MEDS: ASPIRIN EC 81 MG TABLET PO SCH (15:39)
[2021-11-25] MEDS: ROSUVASTATIN 20 MG TABLET PO SCH (15:39)
[2021-11-25] MEDS: ALTEPLASE 2 MG VIAL IV SCH (15:50)
[2021-11-25] MEDS ORDERED: EPOETIN ALFA-EPBX 10,000 UNIT/ML VIAL IV SCH (17:00)
[2021-11-25] MEDS: WARFARIN 5 MG TABLET PO SCH (17:05)
[2021-11-25] MEDS ORDERED: VANCOMYCIN INJ 1,250 MG in SODIUM CHLORIDE 0.9% 250 ML IV ONE (17:30)
[2021-11-25] MEDS: LEVOTHYROXINE 50 MCG TABLET PO SCH (20:19)
[2021-11-26 05:55] LABS: Basophils # 0.1 10*3/uL (0.0-0.2); Basophils % 0.5 % (0.0-0.8); Eosinophils # 0.2 10*3/uL (0.0-0.87); Eosinophils % 1.7 % (0.00-10.9); Hematocrit 25.1 VOL% (35.7-47.0); Hemoglobin 7.6 GM/DL (12.0-16.0); Immature Granulocytes % 3.9 %; Immature Granulocytes Absolute 0.43 #; Lymphocytes # 0.8 10*3/uL (1.4-4.0); Lymphocytes % 7.5 % (21.3-54.2); Mean Corpuscular HGB Conc 30.3 GM/DL (32-36); Mean Corpuscular Volume 111.6 FL (87-102); Mean Platelet Volume 10.5 FL (9.6-12.0); Monocytes # 0.8 10*3/uL (0.11-0.8); Monocytes % 7.3 % (1.7-12.7); Neutrophils % 79.1 % (38.7-73.9); Platelet Count 159 T/CUMM (130-400); Red Blood Count 2.25 MC/CUMM (3.8-5.5); Red Cell Distribution Width 16.5 % (9.3-17.3)
[2021-11-26 06:13] LABS: INR 1.3
[2021-11-26 06:15] LABS: Calcium 8.9 MG/DL (8.5-10.1); Osmolality,Calculated 288.1 MOS/KG (273-304); Potassium 4.8 MMOL/L (3.5-5.1)
[2021-11-26 06:17] LABS: Macrocytosis 1+; Polychromasia Slight
[2021-11-26 06:18] LABS: Anisocytosis 1+; Hypochromia Slight; Platelet Estimate Adequate
[2021-11-26] MEDS: INSULIN LISPRO 100 UNIT/ML SUBCUT SCH ×4 (09:09→20:51)
[2021-11-26] MEDS: FOLIC ACID 1 MG TABLET PO SCH (09:10)
[2021-11-26] MEDS: GABAPENTIN 300 MG CAPSULE PO SCH ×3 (09:10→20:50)
[2021-11-26] MEDS: ASPIRIN EC 81 MG TABLET PO SCH (09:10)
[2021-11-26] MEDS: ROSUVASTATIN 20 MG TABLET PO SCH (09:10)
[2021-11-26] MEDS: allopurinoL 100 MG TABLET PO SCH (09:10)
[2021-11-26] MEDS: DOCUSATE SODIUM 100 MG CAPSULE PO SCH ×2 (09:10→20:50)
[2021-11-26] MEDS: ALTEPLASE 2 MG VIAL IV SCH (11:00)
[2021-11-26] MEDS: INSULIN GLARGINE 100 UNIT/ML SUBCUT SCH (12:34)
[2021-11-26] MEDS ORDERED: SODIUM CHLORIDE 0.9% 250 ML IV ONE (17:30)
[2021-11-26] MEDS: WARFARIN 5 MG TABLET PO SCH (17:56)
[2021-11-26] MEDS: LEVOTHYROXINE 50 MCG TABLET PO SCH (20:51)
[2021-11-27 06:37] LABS: Basophils # 0.1 10*3/uL (0.0-0.2); Basophils % 0.5 % (0.0-0.8); Eosinophils # 0.1 10*3/uL (0.0-0.87); Eosinophils % 0.5 % (0.00-10.9); Hematocrit 25.7 VOL% (35.7-47.0); Hemoglobin 7.8 GM/DL (12.0-16.0); Immature Granulocytes % 1.9 %; Immature Granulocytes Absolute 0.25 #; Lymphocytes # 0.7 10*3/uL (1.4-4.0); Lymphocytes % 5.1 % (21.3-54.2); Mean Corpuscular HGB Conc 30.4 GM/DL (32-36); Mean Corpuscular Volume 111.3 FL (87-102); Mean Platelet Volume 10.3 FL (9.6-12.0); Monocytes # 0.8 10*3/uL (0.11-0.8); Monocytes % 6.2 % (1.7-12.7); NRBC # 0.08 10*3/uL; Neutrophils % 85.8 % (38.7-73.9); Platelet Count 186 T/CUMM (130-400); Red Blood Count 2.31 MC/CUMM (3.8-5.5); Red Cell Distribution Width 16.6 % (9.3-17.3); White Blood Count 12.9 T/CUMM (4-12)
[2021-11-27 06:44] LABS: INR 1.4; PT Patient Result 14.8 SECS (10.5-12.0)
[2021-11-27 06:47] LABS: Calcium 9.3 MG/DL (8.5-10.1); Osmolality,Calculated 283.4 MOS/KG (273-304)
[2021-11-27 07:04] LABS: Macrocytosis 1+; Platelet Estimate Adequate; Polychromasia Slight
[2021-11-27] MEDS: allopurinoL 100 MG TABLET PO SCH (10:35)
[2021-11-27] MEDS: ROSUVASTATIN 20 MG TABLET PO SCH (10:35)
[2021-11-27] MEDS: ASPIRIN EC 81 MG TABLET PO SCH (10:35)
[2021-11-27] MEDS: FOLIC ACID 1 MG TABLET PO SCH (10:35)
[2021-11-27] MEDS: GABAPENTIN 300 MG CAPSULE PO SCH ×3 (10:35→21:51)
[2021-11-27] MEDS: INSULIN LISPRO 100 UNIT/ML SUBCUT SCH ×4 (10:35→22:34)
[2021-11-27] MEDS: DOCUSATE SODIUM 100 MG CAPSULE PO SCH ×2 (10:35→21:51)
[2021-11-27] MEDS: INSULIN GLARGINE 100 UNIT/ML SUBCUT SCH (10:49)
[2021-11-27] MEDS ORDERED: INSULIN GLARGINE 100 UNIT/ML SUBCUT ONE (13:00)
[2021-11-27] MEDS: POLYETHYLENE GLYCOL POWDER 17 GM PACK PO SCH (13:20)
[2021-11-27] MEDS ORDERED: BISACODYL 10 MG SUPP RECTAL ONE (13:30)
[2021-11-27] MEDS: ACETAMINOPHEN 325 MG TABLET PO PRN (17:01)
[2021-11-27] MEDS: MENTHOL/ZINC OXIDE OINT 71 GM JAR TOP SCH ×2 (17:04→21:51)
[2021-11-27] MEDS: WARFARIN 5 MG TABLET PO SCH (17:05)
[2021-11-27] MEDS: LEVOTHYROXINE 50 MCG TABLET PO SCH (21:51)
[2021-11-28 05:16] LABS: INR 1.6; PT Patient Result 17.2 SECS (10.5-12.0)
[2021-11-28 05:26] LABS: Calcium 8.4 MG/DL (8.5-10.1); Osmolality,Calculated 277.7 MOS/KG (273-304)
[2021-11-28 06:13] LABS: Basophils # 0.1 10*3/uL (0.0-0.2); Basophils % 0.5 % (0.0-0.8); Eosinophils # 0.2 10*3/uL (0.0-0.87); Eosinophils % 1.6 % (0.00-10.9); Hematocrit 25.3 VOL% (35.7-47.0); Hemoglobin 7.7 GM/DL (12.0-16.0); Immature Granulocytes % 1.3 %; Lymphocytes # 0.9 10*3/uL (1.4-4.0); Lymphocytes % 6.1 % (21.3-54.2); Mean Corpuscular HGB Conc 30.4 GM/DL (32-36); Mean Corpuscular Volume 111.9 FL (87-102); Mean Platelet Volume 11.3 FL (9.6-12.0); Monocytes # 1.1 10*3/uL (0.11-0.8); Monocytes % 7.2 % (1.7-12.7); Neutrophils % 83.3 % (38.7-73.9); Platelet Count 218 T/CUMM (130-400); Red Blood Count 2.26 MC/CUMM (3.8-5.5); Red Cell Distribution Width 16.7 % (9.3-17.3); White Blood Count 15.3 T/CUMM (4-12)
[2021-11-28 06:31] LABS: Macrocytosis 1+
[2021-11-28 06:32] LABS: Platelet Estimate Normal
[2021-11-28] MEDS ORDERED: HYDROmorphone 1 MG/1 ML SYRINGE IV PRN (08:09)
[2021-11-28] MEDS: ROSUVASTATIN 20 MG TABLET PO SCH (08:21)
[2021-11-28] MEDS: allopurinoL 100 MG TABLET PO SCH (08:21)
[2021-11-28] MEDS: FOLIC ACID 1 MG TABLET PO SCH (08:21)
[2021-11-28] MEDS: MENTHOL/ZINC OXIDE OINT 71 GM JAR TOP SCH ×2 (08:21→21:49)
[2021-11-28] MEDS: INSULIN LISPRO 100 UNIT/ML SUBCUT SCH ×4 (08:22→21:53)
[2021-11-28] MEDS: ASPIRIN EC 81 MG TABLET PO SCH (08:22)
[2021-11-28] MEDS: POLYETHYLENE GLYCOL POWDER 17 GM PACK PO SCH (08:22)
[2021-11-28] MEDS: GABAPENTIN 300 MG CAPSULE PO SCH ×3 (08:22→21:52)
[2021-11-28] MEDS: DOCUSATE SODIUM 100 MG CAPSULE PO SCH ×2 (08:22→21:49)
[2021-11-28] MEDS: INSULIN GLARGINE 100 UNIT/ML SUBCUT SCH (08:22)
[2021-11-28] MEDS: SODIUM ZIRCONIUM CYCLOSILICATE 10 GM PACK PO SCH ×3 (08:23→21:49)
[2021-11-28] MEDS ORDERED: SODIUM CHLORIDE 0.9% 1,000 ML IV PRN (08:52)
[2021-11-28] MEDS: WARFARIN 5 MG TABLET PO SCH (17:10)
[2021-11-28 19:03] LABS: Calcium 8.4 MG/DL (8.5-10.1); Potassium 4.1 MMOL/L (3.5-5.1)
[2021-11-28] MEDS: LEVOTHYROXINE 50 MCG TABLET PO SCH (21:52)
[2021-11-29 06:30] LABS: Basophils # 0.1 10*3/uL (0.0-0.2); Basophils % 0.8 % (0.0-0.8); Eosinophils # 0.1 10*3/uL (0.0-0.87); Eosinophils % 1.3 % (0.00-10.9); Hematocrit 23.6 VOL% (35.7-47.0); Hemoglobin 7.2 GM/DL (12.0-16.0); Immature Granulocytes Absolute 0.09 #; Lymphocytes # 0.8 10*3/uL (1.4-4.0); Mean Corpuscular HGB Conc 30.5 GM/DL (32-36); Mean Corpuscular Volume 110.8 FL (87-102); Mean Platelet Volume 9.9 FL (9.6-12.0); Monocytes # 0.8 10*3/uL (0.11-0.8); Monocytes % 8.7 % (1.7-12.7); NRBC # 0.04 10*3/uL; Neutrophils % 79.2 % (38.7-73.9); Platelet Count 210 T/CUMM (130-400); Red Blood Count 2.13 MC/CUMM (3.8-5.5); Red Cell Distribution Width 16.7 % (9.3-17.3); White Blood Count 9.1 T/CUMM (4-12)
[2021-11-29 06:45] LABS: Calcium 8.7 MG/DL (8.5-10.1); Potassium 4.5 MMOL/L (3.5-5.1)
[2021-11-29 06:49] LABS: Macrocytosis 1+
[2021-11-29 06:50] LABS: Platelet Estimate Normal
[2021-11-29] MEDS: FOLIC ACID 1 MG TABLET PO SCH (08:45)
[2021-11-29] MEDS: ASPIRIN EC 81 MG TABLET PO SCH (08:45)
[2021-11-29] MEDS: DOCUSATE SODIUM 100 MG CAPSULE PO SCH (08:45)
[2021-11-29] MEDS: ROSUVASTATIN 20 MG TABLET PO SCH (08:45)
[2021-11-29] MEDS: GABAPENTIN 300 MG CAPSULE PO SCH (08:45)
[2021-11-29] MEDS: INSULIN GLARGINE 100 UNIT/ML SUBCUT SCH (08:45)
[2021-11-29] MEDS: allopurinoL 100 MG TABLET PO SCH (08:45)
[2021-11-29] MEDS: POLYETHYLENE GLYCOL POWDER 17 GM PACK PO SCH (08:45)
[2021-11-29] MEDS: INSULIN LISPRO 100 UNIT/ML SUBCUT SCH ×2 (09:32→11:53)
[2021-11-29] MEDS: MENTHOL/ZINC OXIDE OINT 71 GM JAR TOP SCH (09:36)
[2021-11-29] MEDS ORDERED: BISACODYL 10 MG SUPP RECTAL ONE (11:00)
[2021-11-29 11:40] VITALS: BP 130/90
== END 2021-11-29 13:40 | disposition swing bed (61) | DRG 239 ==
LOC: N.ED 03:33 → SUATTDRO 09:47 → N.EDINP 09:47 → N.TELEN 11:29 → N.CC 11-15 10:27 → N.3E 11-21 15:38
PROVIDERS: ADMIT Internal Medicine; ATTEND Internal Medicine

== ENCOUNTER 2021-11-30 07:30 | Inpatient (IN) ==
[2021-11-30 07:57] LABS: Basophils # 0.1 10*3/uL (0.0-0.2); Basophils % 1.2 % (0.0-0.8); Eosinophils # 0.1 10*3/uL (0.0-0.87); Hematocrit 24.4 VOL% (35.7-47.0); Hemoglobin 7.2 GM/DL (12.0-16.0); Immature Granulocytes % 0.9 %; Immature Granulocytes Absolute 0.06 #; Lymphocytes # 0.8 10*3/uL (1.4-4.0); Lymphocytes % 11.7 % (21.3-54.2); Mean Corpuscular HGB Conc 29.5 GM/DL (32-36); Mean Platelet Volume 9.9 FL (9.6-12.0); Monocytes # 0.6 10*3/uL (0.11-0.8); Monocytes % 8.9 % (1.7-12.7); NRBC # 0.03 10*3/uL; Neutrophils % 75.3 % (38.7-73.9); Platelet Count 233 T/CUMM (130-400); Red Blood Count 2.14 MC/CUMM (3.8-5.5); Red Cell Distribution Width 16.7 % (9.3-17.3); White Blood Count 6.8 T/CUMM (4-12)
[2021-11-30] MEDS: DEXTROSE 5% NACL 0.45% 1,000 ML IV SCH ×2 (08:03→17:57)
[2021-11-30 08:07] LABS: INR 1.8; Partial Thromboplastin Time 40.3 SECS (23.8-32.1)
[2021-11-30 08:19] LABS: Macrocytosis 1+; Platelet Estimate Adequate
[2021-11-30 08:31] LABS: Alanine Aminotransferase 45 U/L (13-56); Albumin 1.9 G/DL (3.4-5.0); Alkaline Phosphatase 60 U/L (45-117); Aspartate Amino Transferase 32 U/L (0-37); Bilirubin,Total < 0.39 MG/DL (0.20-1.00); Blood Urea Nitrogen 47 MG/DL (7-18); Calcium 8.5 MG/DL (8.5-10.1); Carbon Dioxide 26 MMOL/L (21-32); Chloride 102 MMOL/L (98-107); Glucose 120 MG/DL (74-106); Osmolality,Calculated 285.8 MOS/KG (273-304); Potassium 4.3 MMOL/L (3.5-5.1); Sodium 137 MMOL/L (136-145); Total Protein 5.5 G/DL (6.4-8.2)
[2021-11-30] MEDS ORDERED: LACTATED RINGERS 500 ML IV ONE (09:13)
[2021-11-30 09:45] LABS: Arterial Base Excess iSTAT -2 MMOL/L (-2.5-2.5); Arterial Bicarbonate iSTAT 27.3 MMOL/L (20-26); Arterial O2 Saturation iSTAT 59 % (95-100); Arterial PCO2 iSTAT 74 MM HG (35-48); Arterial PO2 iSTAT 40 MM HG (80-95); Arterial Total CO2 iSTAT 30 MMO/L (23-27); Arterial pH iSTAT 7.176 (7.35-7.45)
[2021-11-30] MEDS ORDERED: ONDANSETRON 4 MG/2 ML VIAL IV PRN (09:48)
[2021-11-30] MEDS ORDERED: ALUMINUM/MAGNES/SIMETH MAX STR 30 ML UDCUP PO PRN ×2 (09:48→10:43)
[2021-11-30] MEDS ORDERED: ACETAMINOPHEN 325 MG TABLET PO PRN (09:48)
[2021-11-30] MEDS ORDERED: DEXTROSE 10% 250 ML BAG IV PRN (09:48)
[2021-11-30] MEDS ORDERED: DOCUSATE SODIUM 100 MG CAPSULE PO PRN (09:48)
[2021-11-30] MEDS ORDERED: GLUCAGON 1 MG VIAL IM PRN (09:48)
[2021-11-30] MEDS: INSULIN LISPRO 100 UNIT/ML SUBCUT SCH ×3 (10:20→18:07)
[2021-11-30] MEDS ORDERED: BISACODYL 10 MG SUPP RECTAL PRN (10:43)
[2021-11-30] MEDS ORDERED: SODIUM CHLORIDE 0.9% 1,000 ML IV PRN (10:47)
[2021-11-30 13:01] LABS: Arterial Base Excess iSTAT -2 MMOL/L (-2.5-2.5); Arterial Bicarbonate iSTAT 26.1 MMOL/L (20-26); Arterial O2 Saturation iSTAT 82 % (95-100); Arterial PCO2 iSTAT 67 MM HG (35-48); Arterial PO2 iSTAT 58 MM HG (80-95); Arterial Total CO2 iSTAT 28 MMO/L (23-27)
[2021-11-30 13:01] LABS: Arterial Base Excess iSTAT -1 MMOL/L (-2.5-2.5); Arterial Bicarbonate iSTAT 28.1 MMOL/L (20-26); Arterial O2 Saturation iSTAT 68 % (95-100); Arterial PCO2 iSTAT 76 MM HG (35-48); Arterial PO2 iSTAT 46 MM HG (80-95); Arterial Total CO2 iSTAT 30 MMO/L (23-27); Arterial pH iSTAT 7.178 (7.35-7.45)
[2021-11-30 14:06] VITALS: BP 98/68
[2021-11-30] MEDS ORDERED: HEPARIN 10,000 UNIT/10 ML VIAL IV SCH (17:00)
[2021-11-30 17:23] LABS: Arterial Base Excess iSTAT 2 MMOL/L (-2.5-2.5); Arterial Bicarbonate iSTAT 30.3 MMOL/L (20-26); Arterial O2 Saturation iSTAT 99 % (95-100); Arterial PCO2 iSTAT 72 MM HG (35-48); Arterial PO2 iSTAT 178 MM HG (80-95); Arterial Total CO2 iSTAT 32 MMO/L (23-27); Arterial pH iSTAT 7.235 (7.35-7.45)
[2021-11-30] MEDS ORDERED: EPOETIN ALFA-EPBX 10,000 UNIT/ML VIAL IV SCH (17:30)
[2021-11-30] MEDS ORDERED: WARFARIN 5 MG TABLET PO SCH (18:00)
[2021-11-30] MEDS ORDERED: LEVOTHYROXINE 50 MCG TABLET PO SCH (21:00)
[2021-12-01] MEDS: INSULIN LISPRO 100 UNIT/ML SUBCUT SCH ×5 (02:14→11:59)
[2021-12-01] MEDS: MENTHOL/ZINC OXIDE OINT 71 GM JAR TOP SCH ×2 (02:24→09:05)
[2021-12-01 04:01] LABS: Arterial Base Excess iSTAT 1 MMOL/L (-2.5-2.5); Arterial Bicarbonate iSTAT 29.3 MMOL/L (20-26); Arterial O2 Saturation iSTAT 99 % (95-100); Arterial PCO2 iSTAT 67 MM HG (35-48); Arterial PO2 iSTAT 185 MM HG (80-95); Arterial Total CO2 iSTAT 31 MMO/L (23-27); Arterial pH iSTAT 7.248 (7.35-7.45)
[2021-12-01 06:26] LABS: Basophils # 0.1 10*3/uL (0.0-0.2); Basophils % 0.8 % (0.0-0.8); Eosinophils # 0.1 10*3/uL (0.0-0.87); Eosinophils % 1.4 % (0.00-10.9); Hematocrit 28.5 VOL% (35.7-47.0); Hemoglobin 8.6 GM/DL (12.0-16.0); Immature Granulocytes % 0.4 %; Immature Granulocytes Absolute 0.03 #; Lymphocytes # 0.5 10*3/uL (1.4-4.0); Lymphocytes % 6.4 % (21.3-54.2); Mean Corpuscular HGB Conc 30.2 GM/DL (32-36); Mean Corpuscular Volume 107.1 FL (87-102); Mean Platelet Volume 9.9 FL (9.6-12.0); Monocytes # 0.5 10*3/uL (0.11-0.8); Monocytes % 6.4 % (1.7-12.7); NRBC # 0.02 10*3/uL; Neutrophils % 84.6 % (38.7-73.9); Platelet Count 229 T/CUMM (130-400); Red Blood Count 2.66 MC/CUMM (3.8-5.5); White Blood Count 7.6 T/CUMM (4-12)
[2021-12-01 06:34] LABS: INR 1.9; PT Patient Result 19.9 SECS (10.5-12.0)
[2021-12-01 06:46] LABS: Alanine Aminotransferase 43 U/L (13-56); Albumin 1.9 G/DL (3.4-5.0); Alkaline Phosphatase 65 U/L (45-117); Aspartate Amino Transferase 31 U/L (0-37); Bilirubin,Total < 0.39 MG/DL (0.20-1.00); Blood Urea Nitrogen 29 MG/DL (7-18); Calcium 8.6 MG/DL (8.5-10.1); Carbon Dioxide 25 MMOL/L (21-32); Chloride 104 MMOL/L (98-107); Glucose 195 MG/DL (74-106); Osmolality,Calculated 280.1 MOS/KG (273-304); Potassium 4.5 MMOL/L (3.5-5.1); Sodium 135 MMOL/L (136-145); Total Protein 6.4 G/DL (6.4-8.2)
[2021-12-01] MEDS: DEXTROSE 5% NACL 0.45% 1,000 ML IV SCH ×2 (07:41→07:42)
[2021-12-01] MEDS ORDERED: traMADol 50 MG TABLET PO PRN (08:34)
[2021-12-01] MEDS ORDERED: FOLIC ACID 1 MG TABLET PO SCH (09:00)
[2021-12-01] MEDS ORDERED: INSULIN NPH/REGULAR 70/30 100 UNIT/ML SUBCUT SCH ×2 (09:00→21:00)
[2021-12-01] MEDS ORDERED: ASPIRIN EC 81 MG TABLET PO SCH (09:00)
[2021-12-01] MEDS ORDERED: ROSUVASTATIN 20 MG TABLET PO SCH (09:00)
[2021-12-01] MEDS ORDERED: POLYETHYLENE GLYCOL POWDER 17 GM PACK PO SCH (09:00)
[2021-12-01] MEDS ORDERED: allopurinoL 100 MG TABLET PO SCH (09:00)
[2021-12-01] MEDS ORDERED: PANTOPRAZOLE 40 MG TABLET PO SCH (09:00)
[2021-12-01] MEDS ORDERED: MEGESTROL 40 MG TABLET PO SCH (09:00)
== END 2021-12-01 12:21 | DRG 189 ==
LOC: N.ED 07:30 → SUATTDRO 09:48 → N.EDINP 09:48 → N.ICU 14:19
PROVIDERS: ADMIT Internal Medicine; ATTEND Family Medicine

== ENCOUNTER 2021-12-22 21:29 | Inpatient (IN) ==
[2021-12-22 22:52] LABS: Basophils % 0.6 % (0.0-0.8); Eosinophils # 0.1 10*3/uL (0.0-0.87); Eosinophils % 1.9 % (0.00-10.9); Hematocrit 28.2 VOL% (35.7-47.0); Hemoglobin 8.4 GM/DL (12.0-16.0); Immature Granulocytes % 0.6 %; Immature Granulocytes Absolute 0.04 #; Lymphocytes % 14.6 % (21.3-54.2); Mean Corpuscular HGB Conc 29.8 GM/DL (32-36); Mean Corpuscular Volume 101.8 FL (87-102); Mean Platelet Volume 10.3 FL (9.6-12.0); Monocytes # 0.6 10*3/uL (0.11-0.8); Monocytes % 8.1 % (1.7-12.7); Neutrophils % 74.2 % (38.7-73.9); Platelet Count 271 T/CUMM (130-400); Red Blood Count 2.77 MC/CUMM (3.8-5.5); Red Cell Distribution Width 17.6 % (9.3-17.3); White Blood Count 6.8 T/CUMM (4-12)
[2021-12-22 23:14] LABS: Alanine Aminotransferase 17 U/L (13-56); Albumin 1.9 G/DL (3.4-5.0); Alkaline Phosphatase 65 U/L (45-117); Aspartate Amino Transferase 16 U/L (0-37); Bilirubin,Total < 0.39 MG/DL (0.20-1.00); Blood Urea Nitrogen 29 MG/DL (7-18); Calcium 9.5 MG/DL (8.5-10.1); Carbon Dioxide 30 MMOL/L (21-32); Chloride 101 MMOL/L (98-107); Glucose 191 MG/DL (74-106); Potassium 3.6 MMOL/L (3.5-5.1); Sodium 136 MMOL/L (136-145); Total Protein 6.9 G/DL (6.4-8.2)
[2021-12-23] MEDS ORDERED: hydrALAZINE 20 MG/1 ML VIAL IV STA (00:15)
[2021-12-23] MEDS ORDERED: MORPHINE 2 MG/1 ML SYRINGE IV STA (00:17)
[2021-12-23] MEDS ORDERED: ONDANSETRON 4 MG/2 ML VIAL IV STA (00:18)
[2021-12-23] MEDS ORDERED: CLINDAMYCIN INJ 600 MG/50 ML PREMIX IV SCH (00:30)
[2021-12-23] MEDS ORDERED: NICOTINE 21 MG/24 HR PATCH TRANSDERM PRN (00:32)
[2021-12-23] MEDS ORDERED: hydrALAZINE 20 MG/1 ML VIAL IV PRN (00:32)
[2021-12-23] MEDS ORDERED: MORPHINE 2 MG/1 ML SYRINGE IV PRN (00:32)
[2021-12-23] MEDS ORDERED: DEXTROSE 10% 250 ML BAG IV PRN (00:32)
[2021-12-23] MEDS ORDERED: GLUCAGON 1 MG VIAL IM PRN ×2 (00:32→12:31)
[2021-12-23] MEDS ORDERED: guaiFENesin/DM ER 600-30 MG TABLET PO PRN (00:32)
[2021-12-23] MEDS ORDERED: VANCOMYCIN INJ 2,000 MG in SODIUM CHLORIDE 0.9% 500 ML IV ONE (01:00)
[2021-12-23] MEDS ORDERED: HEPARIN 10,000 UNIT/10 ML VIAL IV SCH (01:30)
[2021-12-23] MEDS ORDERED: MORPHINE IR 15 MG TABLET PO ONE (01:50)
[2021-12-23] MEDS: ONDANSETRON ODT 4 MG TABLET PO PRN (02:02)
[2021-12-23] MEDS ORDERED: hydrALAZINE 25 MG TABLET PO PRN (02:06)
[2021-12-23] MEDS: CLINDAMYCIN 600 MG/4 ML VIAL IM SCH ×3 (02:49→17:49)
[2021-12-23 06:55] LABS: Basophils % 0.6 % (0.0-0.8); Eosinophils # 0.1 10*3/uL (0.0-0.87); Hematocrit 27.2 VOL% (35.7-47.0); Immature Granulocytes % 0.6 %; Immature Granulocytes Absolute 0.04 #; Lymphocytes # 1.1 10*3/uL (1.4-4.0); Mean Corpuscular HGB Conc 29.4 GM/DL (32-36); Mean Corpuscular Volume 101.9 FL (87-102); Mean Platelet Volume 10.3 FL (9.6-12.0); Monocytes # 0.8 10*3/uL (0.11-0.8); Monocytes % 11.6 % (1.7-12.7); Neutrophils % 68.2 % (38.7-73.9); Platelet Count 258 T/CUMM (130-400); Red Blood Count 2.67 MC/CUMM (3.8-5.5); Red Cell Distribution Width 17.5 % (9.3-17.3); White Blood Count 6.5 T/CUMM (4-12)
[2021-12-23 07:05] LABS: INR 1.2; PT Patient Result 13.5 SECS (10.5-12.0)
[2021-12-23 07:08] LABS: Calcium 9.3 MG/DL (8.5-10.1); Osmolality,Calculated 284.7 MOS/KG (273-304); Potassium 3.2 MMOL/L (3.5-5.1)
[2021-12-23] MEDS: INSULIN LISPRO 100 UNIT/ML SUBCUT SCH ×4 (09:22→22:04)
[2021-12-23] MEDS: PANTOPRAZOLE 40 MG TABLET PO SCH (09:30)
[2021-12-23] MEDS: ASPIRIN EC 81 MG TABLET PO SCH (09:31)
[2021-12-23] MEDS ORDERED: HEPARIN 10,000 UNIT/10 ML VIAL IV PRN (11:18)
[2021-12-23] MEDS ORDERED: DEXTROSE 50% 25 GM/50 ML VIAL IV PRN (12:31)
[2021-12-23] MEDS ORDERED: MORPHINE 2 MG/1 ML SYRINGE IM PRN (19:58)
[2021-12-23] MEDS: ROSUVASTATIN 20 MG TABLET PO SCH (21:29)
[2021-12-23] MEDS: LEVOTHYROXINE 50 MCG TABLET PO SCH (21:29)
[2021-12-23] MEDS: HEPARIN 5,000 UNIT/1 ML VIAL SUBCUT SCH (22:04)
[2021-12-24] MEDS: CLINDAMYCIN 600 MG/4 ML VIAL IM SCH ×2 (02:23→09:26)
[2021-12-24 05:56] LABS: % Iron Saturation 12.2 % (18-50)
[2021-12-24 06:04] LABS: Folate 6.78 NG/ML (5.38-24.0)
[2021-12-24] MEDS: INSULIN LISPRO 100 UNIT/ML SUBCUT SCH ×3 (08:30→16:40)
[2021-12-24 08:37] LABS: Basophils % 0.3 % (0.0-0.8); Eosinophils # 0.1 10*3/uL (0.0-0.87); Eosinophils % 1.1 % (0.00-10.9); Hematocrit 25.7 VOL% (35.7-47.0); Hemoglobin 7.5 GM/DL (12.0-16.0); Immature Granulocytes % 0.6 %; Immature Granulocytes Absolute 0.05 #; Lymphocytes % 11.4 % (21.3-54.2); Mean Corpuscular HGB Conc 29.2 GM/DL (32-36); Mean Corpuscular Volume 103.6 FL (87-102); Mean Platelet Volume 10.4 FL (9.6-12.0); Monocytes # 0.9 10*3/uL (0.11-0.8); Monocytes % 10.6 % (1.7-12.7); Platelet Count 241 T/CUMM (130-400); Red Blood Count 2.48 MC/CUMM (3.8-5.5); Red Cell Distribution Width 18.1 % (9.3-17.3); White Blood Count 8.8 T/CUMM (4-12)
[2021-12-24 08:49] LABS: Calcium 8.7 MG/DL (8.5-10.1); Osmolality,Calculated 278.8 MOS/KG (273-304); Potassium 3.8 MMOL/L (3.5-5.1)
[2021-12-24] MEDS: HEPARIN 5,000 UNIT/1 ML VIAL SUBCUT SCH ×2 (09:20→20:29)
[2021-12-24] MEDS: PANTOPRAZOLE 40 MG TABLET PO SCH (09:23)
[2021-12-24] MEDS: ASPIRIN EC 81 MG TABLET PO SCH (09:23)
[2021-12-24] MEDS ORDERED: VANCOMYCIN INJ 1,250 MG in SODIUM CHLORIDE 0.9% 250 ML IV PRN (09:56)
[2021-12-24] MEDS ORDERED: EPOETIN ALFA-EPBX 10,000 UNIT/ML VIAL IV PRN (09:58)
[2021-12-24] MEDS ORDERED: VANCOMYCIN INJ 2,500 MG in SODIUM CHLORIDE 0.9% 500 ML IV ONE (13:00)
[2021-12-24] MEDS: HEPARIN 10,000 UNIT/10 ML VIAL IV PRN ×2 (15:10→19:00)
[2021-12-24] MEDS: ACETAMINOPHEN 325 MG TABLET PO PRN (15:19)
[2021-12-24] MEDS: LEVOFLOXACIN INJ 500 MG/100 ML PREMIX IV SCH (17:14)
[2021-12-24] MEDS: CLINDAMYCIN INJ 600 MG/50 ML PREMIX IV SCH (18:20)
[2021-12-24] MEDS: ROSUVASTATIN 20 MG TABLET PO SCH (20:29)
[2021-12-24] MEDS: LEVOTHYROXINE 50 MCG TABLET PO SCH (20:29)
[2021-12-25] MEDS: INSULIN LISPRO 100 UNIT/ML SUBCUT SCH ×5 (01:29→21:32)
[2021-12-25] MEDS: CLINDAMYCIN INJ 600 MG/50 ML PREMIX IV SCH ×2 (02:08→09:23)
[2021-12-25] MEDS: HEPARIN 10,000 UNIT/10 ML VIAL IV PRN (04:20)
[2021-12-25 07:02] LABS: Alanine Aminotransferase 14 U/L (13-56); Albumin 1.6 G/DL (3.4-5.0); Alkaline Phosphatase 51 U/L (45-117); Aspartate Amino Transferase 13 U/L (0-37); Bilirubin,Total < 0.39 MG/DL (0.20-1.00); Blood Urea Nitrogen 33 MG/DL (7-18); Carbon Dioxide 27 MMOL/L (21-32); Chloride 101 MMOL/L (98-107); Glucose 153 MG/DL (74-106); Potassium 3.8 MMOL/L (3.5-5.1); Sodium 136 MMOL/L (136-145); Total Protein 5.9 G/DL (6.4-8.2)
[2021-12-25 07:34] LABS: Basophils % 0.4 % (0.0-0.8); Eosinophils # 0.2 10*3/uL (0.0-0.87); Eosinophils % 2.5 % (0.00-10.9); Hematocrit 23.6 VOL% (35.7-47.0); Immature Granulocytes % 0.6 %; Immature Granulocytes Absolute 0.05 #; Lymphocytes # 1.1 10*3/uL (1.4-4.0); Lymphocytes % 13.5 % (21.3-54.2); Mean Corpuscular HGB Conc 29.7 GM/DL (32-36); Mean Corpuscular Volume 102.2 FL (87-102); Mean Platelet Volume 10.2 FL (9.6-12.0); Monocytes # 0.8 10*3/uL (0.11-0.8); Monocytes % 9.9 % (1.7-12.7); Neutrophils % 73.1 % (38.7-73.9); Platelet Count 219 T/CUMM (130-400); Red Blood Count 2.31 MC/CUMM (3.8-5.5); Red Cell Distribution Width 18.5 % (9.3-17.3); White Blood Count 7.8 T/CUMM (4-12)
[2021-12-25] MEDS: PANTOPRAZOLE 40 MG TABLET PO SCH (09:23)
[2021-12-25] MEDS: ASPIRIN EC 81 MG TABLET PO SCH (09:23)
[2021-12-25] MEDS: HEPARIN 5,000 UNIT/1 ML VIAL SUBCUT SCH ×2 (09:24→21:25)
[2021-12-25] MEDS ORDERED: SIMETHICONE CHEW 125 MG TABLET PO ONE (10:00)
[2021-12-25] MEDS ORDERED: ALBUMIN 25% 25 GM/100 ML VIAL IV ONE (12:30)
[2021-12-25] MEDS: MIDODRINE 5 MG TABLET PO SCH (12:36)
[2021-12-25] MEDS: cefTRIAXone 1,000 MG in SODIUM CHLORIDE 0.9% 100 ML IV SCH (14:50)
[2021-12-25] MEDS: ZALEPLON 5 MG CAPSULE PO PRN (21:24)
[2021-12-25] MEDS: BACILLUS COAGULANS CAPLET PO SCH (21:24)
[2021-12-25] MEDS: DOCUSATE SODIUM 100 MG CAPSULE PO SCH (21:24)
[2021-12-25] MEDS: LEVOTHYROXINE 50 MCG TABLET PO SCH (21:24)
[2021-12-25] MEDS: GABAPENTIN 100 MG CAPSULE PO SCH (21:24)
[2021-12-25] MEDS: ROSUVASTATIN 20 MG TABLET PO SCH (21:24)
[2021-12-25] MEDS: MENTHOL/ZINC OXIDE OINT 71 GM JAR TOP SCH (21:32)
[2021-12-26 04:52] LABS: Basophils % 0.4 % (0.0-0.8); Eosinophils # 0.2 10*3/uL (0.0-0.87); Eosinophils % 2.7 % (0.00-10.9); Hematocrit 24.1 VOL% (35.7-47.0); Immature Granulocytes % 0.5 %; Immature Granulocytes Absolute 0.04 #; Lymphocytes % 12.4 % (21.3-54.2); Mean Corpuscular Volume 101.7 FL (87-102); Mean Platelet Volume 9.8 FL (9.6-12.0); Monocytes # 0.8 10*3/uL (0.11-0.8); Monocytes % 9.9 % (1.7-12.7); Neutrophils % 74.1 % (38.7-73.9); Platelet Count 228 T/CUMM (130-400); Red Blood Count 2.37 MC/CUMM (3.8-5.5); Red Cell Distribution Width 18.6 % (9.3-17.3); White Blood Count 8.2 T/CUMM (4-12)
[2021-12-26 05:33] LABS: Alanine Aminotransferase 15 U/L (13-56); Albumin 2.1 G/DL (3.4-5.0); Alkaline Phosphatase 54 U/L (45-117); Aspartate Amino Transferase 14 U/L (0-37); Bilirubin,Total < 0.39 MG/DL (0.20-1.00); Blood Urea Nitrogen 41 MG/DL (7-18); Calcium 8.9 MG/DL (8.5-10.1); Carbon Dioxide 26 MMOL/L (21-32); Chloride 101 MMOL/L (98-107); Glucose 129 MG/DL (74-106); Osmolality,Calculated 284.8 MOS/KG (273-304); Potassium 4.4 MMOL/L (3.5-5.1); Sodium 137 MMOL/L (136-145); Total Protein 5.7 G/DL (6.4-8.2)
[2021-12-26] MEDS ORDERED: SODIUM CHLORIDE 0.9% 1,000 ML IV PRN (08:22)
[2021-12-26] MEDS ORDERED: MIDODRINE 10 MG PO SCH (09:00)
[2021-12-26] MEDS ORDERED: CLINDAMYCIN INJ 900 MG/50 ML PREMIX IV ONE (09:33)
[2021-12-26] MEDS: INSULIN LISPRO 100 UNIT/ML SUBCUT SCH ×4 (09:42→21:35)
[2021-12-26] MEDS: MIDODRINE 5 MG TABLET PO SCH (09:49)
[2021-12-26] MEDS: allopurinoL 100 MG TABLET PO SCH (09:49)
[2021-12-26] MEDS: PANTOPRAZOLE 40 MG TABLET PO SCH (09:49)
[2021-12-26] MEDS: FOLIC ACID 1 MG TABLET PO SCH (09:49)
[2021-12-26] MEDS: ASPIRIN EC 81 MG TABLET PO SCH (09:49)
[2021-12-26] MEDS: DOCUSATE SODIUM 100 MG CAPSULE PO SCH ×2 (09:49→21:25)
[2021-12-26] MEDS: BACILLUS COAGULANS CAPLET PO SCH ×2 (09:49→21:25)
[2021-12-26] MEDS: MEGESTROL 40 MG TABLET PO SCH (09:49)
[2021-12-26] MEDS: MENTHOL/ZINC OXIDE OINT 71 GM JAR TOP SCH ×2 (12:05→21:26)
[2021-12-26] MEDS: HEPARIN 5,000 UNIT/1 ML VIAL SUBCUT SCH ×2 (12:05→21:25)
[2021-12-26] MEDS: POLYETHYLENE GLYCOL POWDER 17 GM PACK PO SCH (12:06)
[2021-12-26] MEDS: cefTRIAXone 1,000 MG in SODIUM CHLORIDE 0.9% 100 ML IV SCH (16:08)
[2021-12-26] MEDS: LEVOFLOXACIN INJ 500 MG/100 ML PREMIX IV SCH (16:49)
[2021-12-26] MEDS ORDERED: SODIUM CHLORIDE 0.9% 250 ML IV ONE (17:15)
[2021-12-26] MEDS: SIMETHICONE CHEW 125 MG TABLET PO PRN (17:31)
[2021-12-26] MEDS: LEVOTHYROXINE 50 MCG TABLET PO SCH (21:25)
[2021-12-26] MEDS: GABAPENTIN 100 MG CAPSULE PO SCH (21:26)
[2021-12-26] MEDS: ZALEPLON 5 MG CAPSULE PO PRN (21:26)
[2021-12-26] MEDS: ROSUVASTATIN 20 MG TABLET PO SCH (21:26)
[2021-12-27 05:02] LABS: Basophils % 0.5 % (0.0-0.8); Eosinophils # 0.2 10*3/uL (0.0-0.87); Eosinophils % 2.3 % (0.00-10.9); Hematocrit 25.9 VOL% (35.7-47.0); Hemoglobin 7.8 GM/DL (12.0-16.0); Immature Granulocytes % 0.7 %; Immature Granulocytes Absolute 0.06 #; Lymphocytes # 0.9 10*3/uL (1.4-4.0); Lymphocytes % 10.6 % (21.3-54.2); Mean Corpuscular HGB Conc 30.1 GM/DL (32-36); Mean Corpuscular Volume 100.8 FL (87-102); Monocytes # 0.7 10*3/uL (0.11-0.8); Monocytes % 8.8 % (1.7-12.7); Neutrophils % 77.1 % (38.7-73.9); Platelet Count 248 T/CUMM (130-400); Red Blood Count 2.57 MC/CUMM (3.8-5.5); Red Cell Distribution Width 18.5 % (9.3-17.3); White Blood Count 8.1 T/CUMM (4-12)
[2021-12-27 05:24] LABS: Alanine Aminotransferase 16 U/L (13-56); Albumin 1.8 G/DL (3.4-5.0); Alkaline Phosphatase 54 U/L (45-117); Aspartate Amino Transferase 13 U/L (0-37); Bilirubin,Total < 0.39 MG/DL (0.20-1.00); Blood Urea Nitrogen 31 MG/DL (7-18); Carbon Dioxide 28 MMOL/L (21-32); Chloride 104 MMOL/L (98-107); Glucose 132 MG/DL (74-106); Osmolality,Calculated 281.8 MOS/KG (273-304); Potassium 4.2 MMOL/L (3.5-5.1); Sodium 137 MMOL/L (136-145); Total Protein 6.1 G/DL (6.4-8.2)
[2021-12-27] MEDS ORDERED: CLINDAMYCIN INJ 900 MG/50 ML PREMIX IV ONE (06:00)
[2021-12-27] MEDS ORDERED: fentaNYL 100 MCG/2 ML VIAL ONE (09:01)
[2021-12-27] MEDS ORDERED: LIDOCAINE 2% 5 ML VIAL ONE (09:01)
[2021-12-27] MEDS ORDERED: propofoL 200 MG/20 ML VIAL IV ONE (09:01)
[2021-12-27] MEDS ORDERED: SUCCINYLCHOLINE 200 MG/10 ML VIAL ONE (09:01)
[2021-12-27] MEDS ORDERED: ROCURONIUM 50 MG/5 ML VIAL IV ONE (09:04)
[2021-12-27] MEDS: SODIUM CHLORIDE 0.9% 250 ML IV SCH ×2 (09:56→11:16)
[2021-12-27] MEDS ORDERED: ePHEDrine 50 MG/ML VIAL ONE (10:48)
[2021-12-27] MEDS ORDERED: SODIUM CHLORIDE 0.9% 250 ML IV ONE (11:10)
[2021-12-27] MEDS ORDERED: SEVOFLURANE 1 UNIT/15 MINUTE INH ONE (11:11)
[2021-12-27] MEDS ORDERED: PHENYLEPHRINE 1 MG/10 ML SYRINGE IV ONE (11:16)
[2021-12-27] MEDS: MORPHINE 10 MG/1 ML VIAL IV PRN ×2 (11:35→11:40)
[2021-12-27] MEDS ORDERED: MORPHINE 10 MG/1 ML VIAL ONE (11:37)
[2021-12-27] MEDS: BACILLUS COAGULANS CAPLET PO SCH ×2 (12:44→20:35)
[2021-12-27] MEDS: ASPIRIN EC 81 MG TABLET PO SCH (12:44)
[2021-12-27] MEDS: INSULIN LISPRO 100 UNIT/ML SUBCUT SCH ×4 (12:44→22:48)
[2021-12-27] MEDS: DOCUSATE SODIUM 100 MG CAPSULE PO SCH ×2 (12:44→20:35)
[2021-12-27] MEDS: MEGESTROL 40 MG TABLET PO SCH (12:44)
[2021-12-27] MEDS: POLYETHYLENE GLYCOL POWDER 17 GM PACK PO SCH (12:44)
[2021-12-27] MEDS: MIDODRINE 5 MG TABLET PO SCH (12:44)
[2021-12-27] MEDS: FOLIC ACID 1 MG TABLET PO SCH (12:44)
[2021-12-27] MEDS: PANTOPRAZOLE 40 MG TABLET PO SCH (12:45)
[2021-12-27] MEDS: allopurinoL 100 MG TABLET PO SCH (12:46)
[2021-12-27] MEDS: MENTHOL/ZINC OXIDE OINT 71 GM JAR TOP SCH ×2 (12:46→20:36)
[2021-12-27] MEDS: ONDANSETRON 4 MG/2 ML VIAL IV PRN (15:18)
[2021-12-27] MEDS: cefTRIAXone 1,000 MG in SODIUM CHLORIDE 0.9% 100 ML IV SCH (15:27)
[2021-12-27] MEDS: DICLOFENAC 1% GEL 100 GM TUBE TOP SCH ×2 (15:28→20:34)
[2021-12-27] MEDS ORDERED: LACTATED RINGERS 250 ML IV ONE (15:45)
[2021-12-27] MEDS: ROSUVASTATIN 20 MG TABLET PO SCH (20:35)
[2021-12-27] MEDS: GABAPENTIN 100 MG CAPSULE PO SCH (20:35)
[2021-12-27] MEDS: LEVOTHYROXINE 50 MCG TABLET PO SCH (20:35)
[2021-12-27] MEDS: ONDANSETRON ODT 4 MG TABLET PO PRN (20:40)
[2021-12-28 06:00] LABS: Basophils % 0.4 % (0.0-0.8); Eosinophils # 0.1 10*3/uL (0.0-0.87); Eosinophils % 1.1 % (0.00-10.9); Hematocrit 26.6 VOL% (35.7-47.0); Immature Granulocytes % 0.5 %; Immature Granulocytes Absolute 0.05 #; Lymphocytes # 1.1 10*3/uL (1.4-4.0); Mean Corpuscular HGB Conc 30.1 GM/DL (32-36); Mean Corpuscular Volume 102.7 FL (87-102); Mean Platelet Volume 9.8 FL (9.6-12.0); Monocytes # 0.9 10*3/uL (0.11-0.8); Monocytes % 10.2 % (1.7-12.7); Neutrophils % 75.8 % (38.7-73.9); Platelet Count 265 T/CUMM (130-400); Red Blood Count 2.59 MC/CUMM (3.8-5.5); Red Cell Distribution Width 18.6 % (9.3-17.3); White Blood Count 9.2 T/CUMM (4-12)
[2021-12-28] MEDS ORDERED: BISACODYL 10 MG SUPP RECTAL ONE (06:00)
[2021-12-28 06:18] LABS: Calcium 9.3 MG/DL (8.5-10.1); Osmolality,Calculated 284.7 MOS/KG (273-304); Potassium 4.4 MMOL/L (3.5-5.1)
[2021-12-28] MEDS: SODIUM HYPOCHLORITE 0.25% IRRIG 473 ML BOTTLE TOP SCH ×2 (07:52→08:58)
[2021-12-28] MEDS: INSULIN LISPRO 100 UNIT/ML SUBCUT SCH ×4 (07:57→20:34)
[2021-12-28] MEDS: PANTOPRAZOLE 40 MG TABLET PO SCH (08:57)
[2021-12-28] MEDS: DOCUSATE SODIUM 100 MG CAPSULE PO SCH ×2 (08:57→20:34)
[2021-12-28] MEDS: MEGESTROL 40 MG TABLET PO SCH (08:57)
[2021-12-28] MEDS: POLYETHYLENE GLYCOL POWDER 17 GM PACK PO SCH (08:57)
[2021-12-28] MEDS: FOLIC ACID 1 MG TABLET PO SCH (08:57)
[2021-12-28] MEDS: BACILLUS COAGULANS CAPLET PO SCH ×2 (08:57→20:34)
[2021-12-28] MEDS: MIDODRINE 5 MG TABLET PO SCH (08:58)
[2021-12-28] MEDS: DICLOFENAC 1% GEL 100 GM TUBE TOP SCH ×3 (08:58→21:22)
[2021-12-28] MEDS: ASPIRIN EC 81 MG TABLET PO SCH (08:58)
[2021-12-28] MEDS: allopurinoL 100 MG TABLET PO SCH (09:01)
[2021-12-28] MEDS: MENTHOL/ZINC OXIDE OINT 71 GM JAR TOP SCH ×2 (09:02→21:22)
[2021-12-28] MEDS: HEPARIN 5,000 UNIT/1 ML VIAL SUBCUT SCH ×2 (09:07→21:20)
[2021-12-28] MEDS ORDERED: SODIUM PHOSPHATE ENEMA 133 ML BOTTLE RECTAL ONE (13:00)
[2021-12-28] MEDS: cefTRIAXone 1,000 MG in SODIUM CHLORIDE 0.9% 100 ML IV SCH (15:58)
[2021-12-28] MEDS: LEVOFLOXACIN INJ 500 MG/100 ML PREMIX IV SCH (16:34)
[2021-12-28] MEDS: ONDANSETRON 4 MG/2 ML VIAL IV PRN ×2 (17:44→21:09)
[2021-12-28] MEDS: GABAPENTIN 100 MG CAPSULE PO SCH (20:34)
[2021-12-28] MEDS: ROSUVASTATIN 20 MG TABLET PO SCH (20:34)
[2021-12-28] MEDS: LEVOTHYROXINE 50 MCG TABLET PO SCH (20:34)
[2021-12-29] MEDS: ONDANSETRON 4 MG/2 ML VIAL IV PRN (00:25)
[2021-12-29] MEDS: ZALEPLON 5 MG CAPSULE PO PRN ×2 (00:26→21:35)
[2021-12-29 06:30] LABS: Basophils % 0.5 % (0.0-0.8); Eosinophils # 0.2 10*3/uL (0.0-0.87); Hematocrit 26.9 VOL% (35.7-47.0); Immature Granulocytes % 0.8 %; Immature Granulocytes Absolute 0.07 #; Lymphocytes % 11.9 % (21.3-54.2); Mean Corpuscular HGB Conc 29.7 GM/DL (32-36); Mean Corpuscular Volume 101.5 FL (87-102); Mean Platelet Volume 10.2 FL (9.6-12.0); Monocytes # 0.8 10*3/uL (0.11-0.8); Monocytes % 9.7 % (1.7-12.7); Neutrophils % 75.1 % (38.7-73.9); Platelet Count 273 T/CUMM (130-400); Red Blood Count 2.65 MC/CUMM (3.8-5.5); Red Cell Distribution Width 18.5 % (9.3-17.3); White Blood Count 8.4 T/CUMM (4-12)
[2021-12-29 06:51] LABS: Calcium 9.1 MG/DL (8.5-10.1); Osmolality,Calculated 283.8 MOS/KG (273-304); Potassium 4.4 MMOL/L (3.5-5.1)
[2021-12-29] MEDS: INSULIN LISPRO 100 UNIT/ML SUBCUT SCH ×4 (07:54→22:13)
[2021-12-29] MEDS: POLYETHYLENE GLYCOL POWDER 17 GM PACK PO SCH (08:30)
[2021-12-29] MEDS: MIDODRINE 5 MG TABLET PO SCH (08:30)
[2021-12-29] MEDS: allopurinoL 100 MG TABLET PO SCH (08:31)
[2021-12-29] MEDS: MEGESTROL 40 MG TABLET PO SCH (08:31)
[2021-12-29] MEDS: BACILLUS COAGULANS CAPLET PO SCH ×2 (08:31→21:35)
[2021-12-29] MEDS: ASPIRIN EC 81 MG TABLET PO SCH (08:31)
[2021-12-29] MEDS: FOLIC ACID 1 MG TABLET PO SCH (08:31)
[2021-12-29] MEDS: DOCUSATE SODIUM 100 MG CAPSULE PO SCH ×2 (08:31→21:35)
[2021-12-29] MEDS: SODIUM HYPOCHLORITE 0.25% IRRIG 473 ML BOTTLE TOP SCH (08:31)
[2021-12-29] MEDS: HEPARIN 5,000 UNIT/1 ML VIAL SUBCUT SCH ×2 (08:32→21:35)
[2021-12-29] MEDS ORDERED: GLUCAGON 1 MG VIAL IM PRN (08:38)
[2021-12-29] MEDS ORDERED: DEXTROSE 50% 25 GM/50 ML VIAL IV PRN (08:38)
[2021-12-29] MEDS: PANTOPRAZOLE 40 MG TABLET PO SCH (08:41)
[2021-12-29] MEDS: MENTHOL/ZINC OXIDE OINT 71 GM JAR TOP SCH ×2 (08:41→21:43)
[2021-12-29] MEDS: DICLOFENAC 1% GEL 100 GM TUBE TOP SCH ×3 (08:50→21:42)
[2021-12-29] MEDS ORDERED: ALTEPLASE 2 MG VIAL IV PRN (13:57)
[2021-12-29] MEDS: prednisoLONE ACETATE 1% OPH SUSP 5 ML BOTTLE RIGHT EYE SCH ×3 (14:29→21:41)
[2021-12-29] MEDS: ATROPINE 1 % OPH SOLN 5 ML BOTTLE RIGHT EYE SCH ×3 (14:29→21:41)
[2021-12-29] MEDS: ONDANSETRON ODT 4 MG TABLET PO PRN (15:25)
[2021-12-29] MEDS ORDERED: WARFARIN 5 MG TABLET PO SCH (18:00)
[2021-12-29] MEDS: cefTRIAXone 1,000 MG in SODIUM CHLORIDE 0.9% 100 ML IV SCH (19:01)
[2021-12-29] MEDS: ROSUVASTATIN 20 MG TABLET PO SCH (21:35)
[2021-12-29] MEDS: GABAPENTIN 100 MG CAPSULE PO SCH (21:35)
[2021-12-29] MEDS: LEVOTHYROXINE 50 MCG TABLET PO SCH (21:35)
[2021-12-30] MEDS: MIDODRINE 5 MG TABLET PO SCH (08:21)
[2021-12-30 08:50] LABS: Basophils % 0.3 % (0.0-0.8); Eosinophils # 0.1 10*3/uL (0.0-0.87); Eosinophils % 1.8 % (0.00-10.9); Hematocrit 27.2 VOL% (35.7-47.0); Immature Granulocytes % 0.6 %; Immature Granulocytes Absolute 0.05 #; Lymphocytes % 12.3 % (21.3-54.2); Mean Corpuscular HGB Conc 29.4 GM/DL (32-36); Mean Corpuscular Volume 101.9 FL (87-102); Mean Platelet Volume 9.7 FL (9.6-12.0); Monocytes # 0.7 10*3/uL (0.11-0.8); Monocytes % 8.7 % (1.7-12.7); Neutrophils % 76.3 % (38.7-73.9); Platelet Count 229 T/CUMM (130-400); Red Blood Count 2.67 MC/CUMM (3.8-5.5); Red Cell Distribution Width 18.6 % (9.3-17.3); White Blood Count 7.8 T/CUMM (4-12)
[2021-12-30 09:00] LABS: INR 1.5; PT Patient Result 16.3 SECS (10.5-12.0)
[2021-12-30 09:16] LABS: Calcium 9.1 MG/DL (8.5-10.1); Potassium 4.3 MMOL/L (3.5-5.1)
[2021-12-30] MEDS: ASPIRIN EC 81 MG TABLET PO SCH (10:45)
[2021-12-30] MEDS: MEGESTROL 40 MG TABLET PO SCH (10:46)
[2021-12-30] MEDS: HEPARIN 5,000 UNIT/1 ML VIAL SUBCUT SCH ×2 (10:46→21:10)
[2021-12-30] MEDS: FOLIC ACID 1 MG TABLET PO SCH (10:46)
[2021-12-30] MEDS: BACILLUS COAGULANS CAPLET PO SCH ×2 (10:46→21:10)
[2021-12-30] MEDS: MENTHOL/ZINC OXIDE OINT 71 GM JAR TOP SCH ×2 (10:46→21:12)
[2021-12-30] MEDS: DOCUSATE SODIUM 100 MG CAPSULE PO SCH ×2 (10:46→21:10)
[2021-12-30] MEDS: PANTOPRAZOLE 40 MG TABLET PO SCH (10:47)
[2021-12-30] MEDS: allopurinoL 100 MG TABLET PO SCH (10:47)
[2021-12-30] MEDS: POLYETHYLENE GLYCOL POWDER 17 GM PACK PO SCH (10:47)
[2021-12-30] MEDS: DICLOFENAC 1% GEL 100 GM TUBE TOP SCH ×3 (10:48→21:12)
[2021-12-30] MEDS: INSULIN LISPRO 100 UNIT/ML SUBCUT SCH ×4 (10:59→21:19)
[2021-12-30] MEDS: ATROPINE 1 % OPH SOLN 5 ML BOTTLE RIGHT EYE SCH ×4 (12:00→21:26)
[2021-12-30] MEDS: prednisoLONE ACETATE 1% OPH SUSP 5 ML BOTTLE RIGHT EYE SCH ×4 (12:00→21:26)
[2021-12-30] MEDS: SODIUM HYPOCHLORITE 0.25% IRRIG 473 ML BOTTLE TOP SCH (15:39)
[2021-12-30] MEDS: cefTRIAXone 1,000 MG in SODIUM CHLORIDE 0.9% 100 ML IV SCH (17:01)
[2021-12-30] MEDS: ACETAMINOPHEN 325 MG TABLET PO PRN (17:17)
[2021-12-30] MEDS: LEVOFLOXACIN INJ 500 MG/100 ML PREMIX IV SCH (17:48)
[2021-12-30] MEDS: WARFARIN 2.5 MG TABLET PO SCH (18:59)
[2021-12-30] MEDS: ROSUVASTATIN 20 MG TABLET PO SCH (21:10)
[2021-12-30] MEDS: LEVOTHYROXINE 50 MCG TABLET PO SCH (21:10)
[2021-12-30] MEDS: GABAPENTIN 100 MG CAPSULE PO SCH (21:10)
[2021-12-30] MEDS: ONDANSETRON ODT 4 MG TABLET PO PRN (22:22)
[2021-12-31 05:34] LABS: Basophils % 0.5 % (0.0-0.8); Eosinophils # 0.1 10*3/uL (0.0-0.87); Eosinophils % 1.8 % (0.00-10.9); Hemoglobin 7.7 GM/DL (12.0-16.0); Immature Granulocytes Absolute 0.08 #; Lymphocytes # 1.2 10*3/uL (1.4-4.0); Lymphocytes % 14.7 % (21.3-54.2); Mean Corpuscular HGB Conc 29.6 GM/DL (32-36); Mean Corpuscular Volume 101.2 FL (87-102); Mean Platelet Volume 9.9 FL (9.6-12.0); Monocytes # 0.8 10*3/uL (0.11-0.8); Monocytes % 9.6 % (1.7-12.7); Neutrophils % 72.4 % (38.7-73.9); Platelet Count 236 T/CUMM (130-400); Red Blood Count 2.57 MC/CUMM (3.8-5.5); Red Cell Distribution Width 18.3 % (9.3-17.3)
[2021-12-31 05:42] LABS: INR 1.4; PT Patient Result 15.6 SECS (10.5-12.0)
[2021-12-31 05:59] LABS: Osmolality,Calculated 278.8 MOS/KG (273-304)
[2021-12-31] MEDS: SIMETHICONE CHEW 125 MG TABLET PO PRN (06:41)
[2021-12-31] MEDS: INSULIN LISPRO 100 UNIT/ML SUBCUT SCH ×4 (08:25→20:49)
[2021-12-31] MEDS: HEPARIN 5,000 UNIT/1 ML VIAL SUBCUT SCH ×2 (09:53→20:53)
[2021-12-31] MEDS: MIDODRINE 5 MG TABLET PO SCH (09:53)
[2021-12-31] MEDS: ASPIRIN EC 81 MG TABLET PO SCH (09:53)
[2021-12-31] MEDS: MEGESTROL 40 MG TABLET PO SCH (09:53)
[2021-12-31] MEDS: DOCUSATE SODIUM 100 MG CAPSULE PO SCH ×2 (09:53→20:52)
[2021-12-31] MEDS: BACILLUS COAGULANS CAPLET PO SCH ×2 (09:53→20:52)
[2021-12-31] MEDS: PANTOPRAZOLE 40 MG TABLET PO SCH ×2 (09:53→21:12)
[2021-12-31] MEDS: FOLIC ACID 1 MG TABLET PO SCH (09:53)
[2021-12-31] MEDS: POLYETHYLENE GLYCOL POWDER 17 GM PACK PO SCH (09:53)
[2021-12-31] MEDS: DICLOFENAC 1% GEL 100 GM TUBE TOP SCH ×3 (09:54→20:56)
[2021-12-31] MEDS: prednisoLONE ACETATE 1% OPH SUSP 5 ML BOTTLE RIGHT EYE SCH ×4 (09:54→20:51)
[2021-12-31] MEDS: ATROPINE 1 % OPH SOLN 5 ML BOTTLE RIGHT EYE SCH ×4 (09:54→20:54)
[2021-12-31] MEDS: SODIUM HYPOCHLORITE 0.25% IRRIG 473 ML BOTTLE TOP SCH (10:11)
[2021-12-31] MEDS ORDERED: MAGNESIUM CITRATE 300 ML BOTTLE PO ONE (10:32)
[2021-12-31] MEDS ORDERED: ALUMINUM/MAGNES/SIMETH MAX STR 30 ML UDCUP PO PRN (10:58)
[2021-12-31] MEDS: allopurinoL 100 MG TABLET PO SCH (12:18)
[2021-12-31] MEDS: cefTRIAXone 1,000 MG in SODIUM CHLORIDE 0.9% 100 ML IV SCH (14:28)
[2021-12-31] MEDS: MENTHOL/ZINC OXIDE OINT 71 GM JAR TOP SCH ×2 (14:29→20:57)
[2021-12-31] MEDS: WARFARIN 2.5 MG TABLET PO SCH (17:12)
[2021-12-31] MEDS: GABAPENTIN 100 MG CAPSULE PO SCH (20:52)
[2021-12-31] MEDS: ROSUVASTATIN 20 MG TABLET PO SCH (20:52)
[2021-12-31] MEDS: LEVOTHYROXINE 50 MCG TABLET PO SCH (20:52)
[2022-01-01] MEDS: ACETAMINOPHEN 325 MG TABLET PO PRN (00:49)
[2022-01-01 05:19] LABS: INR 1.6; PT Patient Result 16.8 SECS (10.5-12.0)
[2022-01-01] MEDS: SIMETHICONE CHEW 125 MG TABLET PO PRN (06:17)
[2022-01-01] MEDS: INSULIN LISPRO 100 UNIT/ML SUBCUT SCH ×3 (07:21→16:03)
[2022-01-01 08:04] LABS: Basophils % 0.5 % (0.0-0.8); Eosinophils # 0.2 10*3/uL (0.0-0.87); Hematocrit 27.7 VOL% (35.7-47.0); Hemoglobin 8.3 GM/DL (12.0-16.0); Immature Granulocytes % 0.7 %; Immature Granulocytes Absolute 0.06 #; Lymphocytes # 1.3 10*3/uL (1.4-4.0); Lymphocytes % 16.2 % (21.3-54.2); Mean Corpuscular Volume 101.5 FL (87-102); Mean Platelet Volume 9.5 FL (9.6-12.0); Monocytes # 0.7 10*3/uL (0.11-0.8); Neutrophils % 71.6 % (38.7-73.9); Platelet Count 262 T/CUMM (130-400); Red Blood Count 2.73 MC/CUMM (3.8-5.5); Red Cell Distribution Width 18.4 % (9.3-17.3)
[2022-01-01] MEDS: PANTOPRAZOLE 40 MG TABLET PO SCH (08:19)
[2022-01-01] MEDS: FOLIC ACID 1 MG TABLET PO SCH (08:19)
[2022-01-01] MEDS: SODIUM HYPOCHLORITE 0.25% IRRIG 473 ML BOTTLE TOP SCH (08:19)
[2022-01-01] MEDS: MEGESTROL 40 MG TABLET PO SCH (08:19)
[2022-01-01] MEDS: ASPIRIN EC 81 MG TABLET PO SCH (08:19)
[2022-01-01] MEDS: allopurinoL 100 MG TABLET PO SCH (08:19)
[2022-01-01] MEDS: MENTHOL/ZINC OXIDE OINT 71 GM JAR TOP SCH (08:19)
[2022-01-01] MEDS: DOCUSATE SODIUM 100 MG CAPSULE PO SCH (08:19)
[2022-01-01] MEDS: BACILLUS COAGULANS CAPLET PO SCH (08:19)
[2022-01-01] MEDS: MIDODRINE 5 MG TABLET PO SCH (08:19)
[2022-01-01] MEDS: prednisoLONE ACETATE 1% OPH SUSP 5 ML BOTTLE RIGHT EYE SCH ×3 (08:20→16:02)
[2022-01-01] MEDS: ATROPINE 1 % OPH SOLN 5 ML BOTTLE RIGHT EYE SCH ×3 (08:20→16:02)
[2022-01-01] MEDS: DICLOFENAC 1% GEL 100 GM TUBE TOP SCH ×2 (08:21→16:01)
[2022-01-01] MEDS: POLYETHYLENE GLYCOL POWDER 17 GM PACK PO SCH (08:21)
[2022-01-01 08:23] LABS: Calcium 9.2 MG/DL (8.5-10.1); Osmolality,Calculated 278.8 MOS/KG (273-304); Potassium 4.4 MMOL/L (3.5-5.1)
[2022-01-01] MEDS: HEPARIN 5,000 UNIT/1 ML VIAL SUBCUT SCH (08:23)
[2022-01-01 16:24] VITALS: BP 142/70
[2022-01-01] MEDS ORDERED: LEVOFLOXACIN 500 MG TABLET PO SCH (18:00)
[2022-01-02] MEDS ORDERED: CEFUROXIME 500 MG TABLET PO SCH (18:00)
== END 2022-01-01 16:33 | disposition home health service (06) | DRG 463 ==
LOC: EDBD → EDUNIT# → N.ED 21:29 → N.EDINP 12-23 00:32 → SUATTDRO 12-23 00:32 → N.3E 12-23 01:02
PROVIDERS: ADMIT Emergency Medicine; ATTEND Internal Medicine

== ENCOUNTER 2022-01-13 12:49 | Inpatient (IN) ==
[2022-01-13] MEDS ORDERED: NITROGLYCERIN SL 0.4 MG TABLET SL PRN (13:21)
[2022-01-13] MEDS ORDERED: ASPIRIN 325 MG TABLET PO STA (13:21)
[2022-01-13 13:56] LABS: Basophils # 0.1 10*3/uL (0.0-0.2); Basophils % 0.7 % (0.0-0.8); Eosinophils # 0.1 10*3/uL (0.0-0.87); Eosinophils % 1.4 % (0.00-10.9); Hematocrit 30.4 VOL% (35.7-47.0); Hemoglobin 9.3 GM/DL (12.0-16.0); Immature Granulocytes % 0.9 %; Immature Granulocytes Absolute 0.08 #; Lymphocytes % 11.3 % (21.3-54.2); Mean Corpuscular HGB Conc 30.6 GM/DL (32-36); Mean Corpuscular Volume 96.8 FL (87-102); Mean Platelet Volume 9.8 FL (9.6-12.0); Monocytes # 0.8 10*3/uL (0.11-0.8); Monocytes % 9.4 % (1.7-12.7); Neutrophils % 76.3 % (38.7-73.9); Platelet Count 276 T/CUMM (130-400); Red Blood Count 3.14 MC/CUMM (3.8-5.5); Red Cell Distribution Width 18.4 % (9.3-17.3); White Blood Count 8.7 T/CUMM (4-12)
[2022-01-13 14:15] LABS: Bilirubin,Total 0.5 MG/DL (0.20-1.00); Calcium 8.9 MG/DL (8.5-10.1); Osmolality,Calculated 274.7 MOS/KG (273-304); Potassium 3.3 MMOL/L (3.5-5.1); Total Protein 6.7 G/DL (6.4-8.2)
[2022-01-13] MEDS ORDERED: GLUCAGON 1 MG VIAL IM PRN (15:49)
[2022-01-13] MEDS ORDERED: ONDANSETRON 4 MG/2 ML VIAL IV PRN (15:49)
[2022-01-13] MEDS ORDERED: hydrALAZINE 20 MG/1 ML VIAL IV PRN (15:49)
[2022-01-13] MEDS ORDERED: DEXTROSE 10% 250 ML BAG IV PRN (15:58)
[2022-01-13] MEDS ORDERED: amLODIPine 5 MG TABLET PO ONE (16:10)
[2022-01-13] MEDS ORDERED: POTASSIUM CHLORIDE 20 MEQ TABLET PO ONE (16:13)
[2022-01-13] MEDS: INSULIN LISPRO 100 UNIT/ML SUBCUT SCH ×2 (16:53→23:00)
[2022-01-13] MEDS ORDERED: WARFARIN 2.5 MG TABLET PO SCH (18:00)
[2022-01-13] MEDS ORDERED: VENLAFAXINE XR 75 MG CAPSULE PO SCH (21:00)
[2022-01-13] MEDS: DOCUSATE SODIUM 100 MG CAPSULE PO SCH (21:25)
[2022-01-13] MEDS: carvediloL 12.5 MG TABLET PO SCH (21:25)
[2022-01-13] MEDS: MELATONIN 3 MG TABLET PO SCH (21:25)
[2022-01-13] MEDS: GABAPENTIN 100 MG CAPSULE PO SCH (21:25)
[2022-01-14 05:19] LABS: Basophils # 0.1 10*3/uL (0.0-0.2); Basophils % 0.6 % (0.0-0.8); Eosinophils # 0.2 10*3/uL (0.0-0.87); Eosinophils % 2.1 % (0.00-10.9); Hematocrit 27.2 VOL% (35.7-47.0); Hemoglobin 8.2 GM/DL (12.0-16.0); Immature Granulocytes % 0.9 %; Immature Granulocytes Absolute 0.07 #; Lymphocytes % 12.8 % (21.3-54.2); Mean Corpuscular HGB Conc 30.1 GM/DL (32-36); Mean Corpuscular Volume 96.8 FL (87-102); Mean Platelet Volume 10.1 FL (9.6-12.0); Monocytes # 0.8 10*3/uL (0.11-0.8); Neutrophils % 73.6 % (38.7-73.9); Platelet Count 251 T/CUMM (130-400); Red Blood Count 2.81 MC/CUMM (3.8-5.5); Red Cell Distribution Width 18.1 % (9.3-17.3); White Blood Count 8.1 T/CUMM (4-12)
[2022-01-14 05:27] LABS: INR 1.2; PT Patient Result 13.5 SECS (10.5-12.0)
[2022-01-14 05:43] LABS: Calcium 8.8 MG/DL (8.5-10.1); Osmolality,Calculated 275.7 MOS/KG (273-304); Potassium 3.4 MMOL/L (3.5-5.1)
[2022-01-14] MEDS ORDERED: LEVOTHYROXINE 50 MCG TABLET PO SCH (07:00)
[2022-01-14] MEDS: INSULIN LISPRO 100 UNIT/ML SUBCUT SCH ×4 (08:33→22:12)
[2022-01-14] MEDS: DOCUSATE SODIUM 100 MG CAPSULE PO SCH ×2 (09:52→22:00)
[2022-01-14] MEDS: POLYETHYLENE GLYCOL POWDER 17 GM PACK PO SCH ×2 (09:52→22:01)
[2022-01-14] MEDS: allopurinoL 100 MG TABLET PO SCH (09:54)
[2022-01-14] MEDS: amLODIPine 5 MG TABLET PO SCH (09:54)
[2022-01-14] MEDS: carvediloL 12.5 MG TABLET PO SCH ×2 (09:54→22:00)
[2022-01-14] MEDS: CHOLECALCIFEROL 5,000 UNIT TABLET PO SCH (09:55)
[2022-01-14] MEDS: ROSUVASTATIN 20 MG TABLET PO SCH (09:55)
[2022-01-14] MEDS: ASPIRIN EC 81 MG TABLET PO SCH (09:57)
[2022-01-14] MEDS ORDERED: ONDANSETRON 4 MG/2 ML VIAL IV SCH (15:30)
[2022-01-14] MEDS ORDERED: HYDROCORTISONE 1% OINT 28.35 GM TUBE TOP PRN (16:00)
[2022-01-14] MEDS: ONDANSETRON 4 MG/2 ML VIAL IV SCH (17:45)
[2022-01-14] MEDS ORDERED: WARFARIN 5 MG TABLET PO SCH ×2 (18:00)
[2022-01-14] MEDS ORDERED: MIRTAZAPINE 15 MG TABLET PO SCH (21:00)
[2022-01-14] MEDS: ESCITALOPRAM 10 MG TABLET PO SCH (22:00)
[2022-01-14] MEDS: MELATONIN 3 MG TABLET PO SCH (22:00)
[2022-01-14] MEDS: GABAPENTIN 100 MG CAPSULE PO SCH (22:01)
[2022-01-15] MEDS: ONDANSETRON 4 MG/2 ML VIAL IV SCH ×4 (02:10→19:25)
[2022-01-15] MEDS ORDERED: BISACODYL 10 MG SUPP RECTAL PRN (02:28)
[2022-01-15 05:30] LABS: Basophils # 0.1 10*3/uL (0.0-0.2); Basophils % 0.7 % (0.0-0.8); Eosinophils # 0.2 10*3/uL (0.0-0.87); Eosinophils % 2.1 % (0.00-10.9); Hematocrit 28.9 VOL% (35.7-47.0); Hemoglobin 8.5 GM/DL (12.0-16.0); Immature Granulocytes % 0.7 %; Immature Granulocytes Absolute 0.06 #; Lymphocytes % 11.2 % (21.3-54.2); Mean Corpuscular HGB Conc 29.4 GM/DL (32-36); Mean Corpuscular Volume 98.3 FL (87-102); Monocytes # 0.8 10*3/uL (0.11-0.8); Monocytes % 9.1 % (1.7-12.7); Neutrophils % 76.2 % (38.7-73.9); Platelet Count 244 T/CUMM (130-400); Red Blood Count 2.94 MC/CUMM (3.8-5.5); Red Cell Distribution Width 18.3 % (9.3-17.3); White Blood Count 8.8 T/CUMM (4-12)
[2022-01-15 05:44] LABS: Osmolality,Calculated 271.2 MOS/KG (273-304); Potassium 4.2 MMOL/L (3.5-5.1)
[2022-01-15 05:54] LABS: INR 2.2
[2022-01-15] MEDS: LEVOTHYROXINE 75 MCG TABLET PO SCH (06:29)
[2022-01-15] MEDS: INSULIN LISPRO 100 UNIT/ML SUBCUT SCH ×4 (08:37→20:56)
[2022-01-15] MEDS: buPROPion XL 150 MG TABLET PO SCH (09:36)
[2022-01-15] MEDS: ROSUVASTATIN 20 MG TABLET PO SCH (09:36)
[2022-01-15] MEDS: POLYETHYLENE GLYCOL POWDER 17 GM PACK PO SCH (09:36)
[2022-01-15] MEDS: ASPIRIN EC 81 MG TABLET PO SCH (09:36)
[2022-01-15] MEDS: carvediloL 12.5 MG TABLET PO SCH ×2 (09:36→20:43)
[2022-01-15] MEDS: DOCUSATE SODIUM 100 MG CAPSULE PO SCH ×2 (09:37→20:43)
[2022-01-15] MEDS: allopurinoL 100 MG TABLET PO SCH (09:37)
[2022-01-15] MEDS: CHOLECALCIFEROL 5,000 UNIT TABLET PO SCH (09:37)
[2022-01-15] MEDS: amLODIPine 5 MG TABLET PO SCH (09:37)
[2022-01-15] MEDS: HYDROCORTISONE 25 MG SUPP RECTAL SCH ×2 (11:40→20:42)
[2022-01-15] MEDS ORDERED: WARFARIN 3 MG TABLET PO SCH (18:00)
[2022-01-15] MEDS: MELATONIN 3 MG TABLET PO SCH (20:42)
[2022-01-15] MEDS: GABAPENTIN 100 MG CAPSULE PO SCH (20:43)
[2022-01-15] MEDS: ESCITALOPRAM 10 MG TABLET PO SCH (20:43)
[2022-01-16] MEDS: ONDANSETRON 4 MG/2 ML VIAL IV SCH ×4 (01:18→17:43)
[2022-01-16 05:48] LABS: INR 1.7; PT Patient Result 18.4 SECS (10.5-12.0)
[2022-01-16] MEDS: LEVOTHYROXINE 75 MCG TABLET PO SCH (06:34)
[2022-01-16] MEDS ORDERED: LACTULOSE 20 GM/30 ML UDCUP PO ONE (08:32)
[2022-01-16] MEDS: INSULIN LISPRO 100 UNIT/ML SUBCUT SCH ×4 (08:34→21:43)
[2022-01-16] MEDS ORDERED: HEPARIN 10,000 UNIT/10 ML VIAL IV PRN (09:54)
[2022-01-16] MEDS: ROSUVASTATIN 20 MG TABLET PO SCH (10:44)
[2022-01-16] MEDS: carvediloL 12.5 MG TABLET PO SCH ×2 (10:44→22:54)
[2022-01-16] MEDS: DOCUSATE SODIUM 100 MG CAPSULE PO SCH ×2 (10:44→22:54)
[2022-01-16] MEDS: ASPIRIN EC 81 MG TABLET PO SCH (10:44)
[2022-01-16] MEDS: HYDROCORTISONE 25 MG SUPP RECTAL SCH ×3 (10:44→22:54)
[2022-01-16] MEDS: amLODIPine 5 MG TABLET PO SCH (10:45)
[2022-01-16] MEDS: buPROPion XL 150 MG TABLET PO SCH (10:45)
[2022-01-16] MEDS: LINACLOTIDE 145 MCG CAPSULE PO SCH (10:45)
[2022-01-16] MEDS: allopurinoL 100 MG TABLET PO SCH (10:45)
[2022-01-16] MEDS: POLYETHYLENE GLYCOL POWDER 17 GM PACK PO SCH ×2 (10:45→22:55)
[2022-01-16] MEDS: CHOLECALCIFEROL 5,000 UNIT TABLET PO SCH (10:45)
[2022-01-16] MEDS ORDERED: WARFARIN 4 MG TABLET PO SCH (18:00)
[2022-01-16] MEDS: MELATONIN 3 MG TABLET PO SCH (22:53)
[2022-01-16] MEDS: GABAPENTIN 100 MG CAPSULE PO SCH (22:53)
[2022-01-16] MEDS: ESCITALOPRAM 10 MG TABLET PO SCH (22:54)
[2022-01-17] MEDS: ONDANSETRON 4 MG/2 ML VIAL IV SCH ×4 (02:52→21:35)
[2022-01-17 05:15] LABS: Basophils # 0.1 10*3/uL (0.0-0.2); Basophils % 0.4 % (0.0-0.8); Eosinophils # 0.1 10*3/uL (0.0-0.87); Eosinophils % 0.7 % (0.00-10.9); Hematocrit 29.2 VOL% (35.7-47.0); Hemoglobin 8.6 GM/DL (12.0-16.0); Immature Granulocytes % 0.8 %; Immature Granulocytes Absolute 0.09 #; Lymphocytes % 8.6 % (21.3-54.2); Mean Corpuscular HGB Conc 29.5 GM/DL (32-36); Mean Corpuscular Volume 100.3 FL (87-102); Mean Platelet Volume 9.5 FL (9.6-12.0); Monocytes # 0.6 10*3/uL (0.11-0.8); Monocytes % 5.3 % (1.7-12.7); NRBC # 0.02 10*3/uL; Neutrophils % 84.2 % (38.7-73.9); Platelet Count 222 T/CUMM (130-400); Red Blood Count 2.91 MC/CUMM (3.8-5.5); White Blood Count 11.7 T/CUMM (4-12)
[2022-01-17 05:26] LABS: INR 2.7; PT Patient Result 27.4 SECS (10.5-12.0)
[2022-01-17] MEDS: LEVOTHYROXINE 75 MCG TABLET PO SCH (05:33)
[2022-01-17 05:40] LABS: Calcium 8.8 MG/DL (8.5-10.1); Osmolality,Calculated 276.8 MOS/KG (273-304); Potassium 4.1 MMOL/L (3.5-5.1)
[2022-01-17] MEDS: HYDROCORTISONE 25 MG SUPP RECTAL SCH ×2 (09:01→21:35)
[2022-01-17] MEDS: ROSUVASTATIN 20 MG TABLET PO SCH (09:01)
[2022-01-17] MEDS: carvediloL 12.5 MG TABLET PO SCH (09:01)
[2022-01-17] MEDS: buPROPion XL 150 MG TABLET PO SCH (09:01)
[2022-01-17] MEDS: ASPIRIN EC 81 MG TABLET PO SCH (09:01)
[2022-01-17] MEDS: CHOLECALCIFEROL 5,000 UNIT TABLET PO SCH (09:02)
[2022-01-17] MEDS: POLYETHYLENE GLYCOL POWDER 17 GM PACK PO SCH (09:02)
[2022-01-17] MEDS: amLODIPine 5 MG TABLET PO SCH (09:02)
[2022-01-17] MEDS: DOCUSATE SODIUM 100 MG CAPSULE PO SCH ×2 (09:02→21:33)
[2022-01-17] MEDS: allopurinoL 100 MG TABLET PO SCH (09:02)
[2022-01-17] MEDS: INSULIN LISPRO 100 UNIT/ML SUBCUT SCH ×4 (09:04→21:05)
[2022-01-17] MEDS ORDERED: ZINC OXIDE PASTE 113 GM TUBE TOP PRN (11:58)
[2022-01-17] MEDS: LINACLOTIDE 145 MCG CAPSULE PO SCH (11:59)
[2022-01-17] MEDS ORDERED: LUBIPROSTONE 24 MCG CAPSULE PO SCH (12:30)
[2022-01-17] MEDS ORDERED: WARFARIN 5 MG TABLET PO SCH (18:00)
[2022-01-17] MEDS: carvediloL 3.125 MG TABLET PO SCH (21:33)
[2022-01-17] MEDS: GABAPENTIN 100 MG CAPSULE PO SCH (21:33)
[2022-01-17] MEDS: MELATONIN 3 MG TABLET PO SCH (21:33)
[2022-01-17] MEDS: ESCITALOPRAM 10 MG TABLET PO SCH (21:33)
[2022-01-17] MEDS: CEFEPIME 1,000 MG in SODIUM CHLORIDE 0.9% 100 ML IV SCH (21:34)
[2022-01-18] MEDS: ONDANSETRON 4 MG/2 ML VIAL IV SCH ×4 (04:00→18:32)
[2022-01-18 05:38] LABS: Basophils % 0.4 % (0.0-0.8); Eosinophils # 0.1 10*3/uL (0.0-0.87); Eosinophils % 0.9 % (0.00-10.9); Hematocrit 27.7 VOL% (35.7-47.0); Hemoglobin 8.1 GM/DL (12.0-16.0); Immature Granulocytes % 1.1 %; Immature Granulocytes Absolute 0.11 #; Lymphocytes # 1.2 10*3/uL (1.4-4.0); Lymphocytes % 12.5 % (21.3-54.2); Mean Corpuscular HGB Conc 29.2 GM/DL (32-36); Mean Corpuscular Volume 100.7 FL (87-102); Mean Platelet Volume 10.1 FL (9.6-12.0); Monocytes # 0.7 10*3/uL (0.11-0.8); Monocytes % 6.9 % (1.7-12.7); NRBC # 0.02 10*3/uL; Neutrophils % 78.2 % (38.7-73.9); Platelet Count 210 T/CUMM (130-400); Red Blood Count 2.75 MC/CUMM (3.8-5.5); Red Cell Distribution Width 19.4 % (9.3-17.3); White Blood Count 9.7 T/CUMM (4-12)
[2022-01-18] MEDS: LEVOTHYROXINE 75 MCG TABLET PO SCH (05:44)
[2022-01-18 05:57] LABS: INR 4.2; PT Patient Result 42.2 SECS (10.5-12.0)
[2022-01-18 05:58] LABS: Calcium 9.1 MG/DL (8.5-10.1); Osmolality,Calculated 277.8 MOS/KG (273-304); Potassium 4.1 MMOL/L (3.5-5.1)
[2022-01-18] MEDS: carvediloL 3.125 MG TABLET PO SCH (08:36)
[2022-01-18] MEDS: DOCUSATE SODIUM 100 MG CAPSULE PO SCH ×2 (08:38→20:34)
[2022-01-18] MEDS: HYDROCORTISONE 25 MG SUPP RECTAL SCH ×2 (08:38→20:34)
[2022-01-18] MEDS: ASPIRIN EC 81 MG TABLET PO SCH (08:38)
[2022-01-18] MEDS: buPROPion XL 150 MG TABLET PO SCH (08:38)
[2022-01-18] MEDS: CHOLECALCIFEROL 5,000 UNIT TABLET PO SCH (08:38)
[2022-01-18] MEDS: LINACLOTIDE 145 MCG CAPSULE PO SCH (08:38)
[2022-01-18] MEDS: POLYETHYLENE GLYCOL POWDER 17 GM PACK PO SCH (08:39)
[2022-01-18] MEDS: allopurinoL 100 MG TABLET PO SCH (08:39)
[2022-01-18] MEDS: ROSUVASTATIN 20 MG TABLET PO SCH (08:39)
[2022-01-18] MEDS: INSULIN LISPRO 100 UNIT/ML SUBCUT SCH ×4 (08:40→20:40)
[2022-01-18] MEDS: ACETAMINOPHEN 325 MG TABLET PO PRN ×2 (10:56→20:34)
[2022-01-18] MEDS: CEFEPIME 1,000 MG in SODIUM CHLORIDE 0.9% 100 ML IV SCH (17:28)
[2022-01-18] MEDS ORDERED: WARFARIN 1 MG TABLET PO SCH (18:00)
[2022-01-18] MEDS: MELATONIN 3 MG TABLET PO SCH (20:33)
[2022-01-18] MEDS: ESCITALOPRAM 10 MG TABLET PO SCH (20:33)
[2022-01-18] MEDS: GABAPENTIN 100 MG CAPSULE PO SCH (20:34)
[2022-01-19] MEDS: ONDANSETRON 4 MG/2 ML VIAL IV SCH ×4 (00:57→18:18)
[2022-01-19] MEDS: ACETAMINOPHEN 325 MG TABLET PO PRN ×2 (02:29→15:26)
[2022-01-19 05:13] LABS: Basophils # 0.1 10*3/uL (0.0-0.2); Basophils % 0.4 % (0.0-0.8); Eosinophils # 0.1 10*3/uL (0.0-0.87); Eosinophils % 0.8 % (0.00-10.9); Hematocrit 28.8 VOL% (35.7-47.0); Hemoglobin 8.7 GM/DL (12.0-16.0); Immature Granulocytes Absolute 0.12 #; Lymphocytes # 1.2 10*3/uL (1.4-4.0); Lymphocytes % 10.7 % (21.3-54.2); Mean Corpuscular HGB Conc 30.2 GM/DL (32-36); Mean Corpuscular Volume 101.4 FL (87-102); Mean Platelet Volume 9.8 FL (9.6-12.0); Monocytes # 0.9 10*3/uL (0.11-0.8); Monocytes % 7.9 % (1.7-12.7); NRBC # 0.02 10*3/uL; Neutrophils % 79.2 % (38.7-73.9); Platelet Count 195 T/CUMM (130-400); Red Blood Count 2.84 MC/CUMM (3.8-5.5); Red Cell Distribution Width 19.8 % (9.3-17.3); White Blood Count 11.5 T/CUMM (4-12)
[2022-01-19 05:25] LABS: INR 3.9; PT Patient Result 38.7 SECS (10.5-12.0)
[2022-01-19 05:30] LABS: Calcium 8.6 MG/DL (8.5-10.1); Osmolality,Calculated 275.8 MOS/KG (273-304); Potassium 3.9 MMOL/L (3.5-5.1)
[2022-01-19] MEDS: LEVOTHYROXINE 75 MCG TABLET PO SCH (05:45)
[2022-01-19] MEDS: POLYETHYLENE GLYCOL POWDER 17 GM PACK PO SCH (08:55)
[2022-01-19] MEDS: ASPIRIN EC 81 MG TABLET PO SCH (08:55)
[2022-01-19] MEDS: ROSUVASTATIN 20 MG TABLET PO SCH (08:55)
[2022-01-19] MEDS: DOCUSATE SODIUM 100 MG CAPSULE PO SCH ×2 (08:55→21:11)
[2022-01-19] MEDS: allopurinoL 100 MG TABLET PO SCH (08:55)
[2022-01-19] MEDS: buPROPion XL 150 MG TABLET PO SCH (08:55)
[2022-01-19] MEDS: CHOLECALCIFEROL 5,000 UNIT TABLET PO SCH (08:56)
[2022-01-19] MEDS: INSULIN LISPRO 100 UNIT/ML SUBCUT SCH ×4 (08:56→22:34)
[2022-01-19] MEDS: HYDROCORTISONE 25 MG SUPP RECTAL SCH ×2 (08:56→21:12)
[2022-01-19] MEDS: LINACLOTIDE 145 MCG CAPSULE PO SCH (08:57)
[2022-01-19] MEDS: CEFEPIME 1,000 MG in SODIUM CHLORIDE 0.9% 100 ML IV SCH (16:30)
[2022-01-19] MEDS: GABAPENTIN 100 MG CAPSULE PO SCH (21:11)
[2022-01-19] MEDS: MELATONIN 3 MG TABLET PO SCH (21:11)
[2022-01-19] MEDS: ESCITALOPRAM 10 MG TABLET PO SCH (21:11)
[2022-01-20] MEDS: ONDANSETRON 4 MG/2 ML VIAL IV SCH ×4 (00:27→18:13)
[2022-01-20] MEDS: LEVOTHYROXINE 100 MCG TABLET PO SCH (05:33)
[2022-01-20 05:50] LABS: Basophils % 0.3 % (0.0-0.8); Eosinophils # 0.1 10*3/uL (0.0-0.87); Hematocrit 30.2 VOL% (35.7-47.0); Hemoglobin 8.8 GM/DL (12.0-16.0); Immature Granulocytes % 0.9 %; Immature Granulocytes Absolute 0.09 #; Lymphocytes # 1.1 10*3/uL (1.4-4.0); Lymphocytes % 11.4 % (21.3-54.2); Mean Corpuscular HGB Conc 29.1 GM/DL (32-36); Mean Platelet Volume 10.1 FL (9.6-12.0); Monocytes # 0.8 10*3/uL (0.11-0.8); Monocytes % 8.3 % (1.7-12.7); Neutrophils % 78.1 % (38.7-73.9); Platelet Count 207 T/CUMM (130-400); Red Blood Count 2.96 MC/CUMM (3.8-5.5); Red Cell Distribution Width 19.9 % (9.3-17.3); White Blood Count 9.7 T/CUMM (4-12)
[2022-01-20 06:00] LABS: INR 3.8; PT Patient Result 37.9 SECS (10.5-12.0)
[2022-01-20 06:07] LABS: Calcium 8.8 MG/DL (8.5-10.1); Potassium 4.3 MMOL/L (3.5-5.1)
[2022-01-20] MEDS: INSULIN LISPRO 100 UNIT/ML SUBCUT SCH ×4 (10:23→21:29)
[2022-01-20] MEDS: LINACLOTIDE 145 MCG CAPSULE PO SCH (13:13)
[2022-01-20] MEDS: CHOLECALCIFEROL 5,000 UNIT TABLET PO SCH (13:13)
[2022-01-20] MEDS: ROSUVASTATIN 20 MG TABLET PO SCH (13:13)
[2022-01-20] MEDS: DOCUSATE SODIUM 100 MG CAPSULE PO SCH ×2 (13:14→21:27)
[2022-01-20] MEDS: allopurinoL 100 MG TABLET PO SCH (13:14)
[2022-01-20] MEDS: buPROPion XL 150 MG TABLET PO SCH (13:14)
[2022-01-20] MEDS: ASPIRIN EC 81 MG TABLET PO SCH (13:14)
[2022-01-20] MEDS: HYDROCORTISONE 25 MG SUPP RECTAL SCH ×2 (13:14→21:29)
[2022-01-20] MEDS: ATROPINE 1 % OPH SOLN 5 ML BOTTLE RIGHT EYE SCH ×3 (13:15→21:28)
[2022-01-20] MEDS: POLYETHYLENE GLYCOL POWDER 17 GM PACK PO SCH (13:15)
[2022-01-20] MEDS: prednisoLONE ACETATE 1% OPH SUSP 5 ML BOTTLE RIGHT EYE SCH ×3 (13:16→21:28)
[2022-01-20] MEDS: CEFEPIME 1,000 MG in SODIUM CHLORIDE 0.9% 100 ML IV SCH (16:35)
[2022-01-20] MEDS: ACETAMINOPHEN 325 MG TABLET PO PRN (21:27)
[2022-01-20] MEDS: ESCITALOPRAM 10 MG TABLET PO SCH (21:27)
[2022-01-20] MEDS: MELATONIN 3 MG TABLET PO SCH (21:28)
[2022-01-20] MEDS: GABAPENTIN 100 MG CAPSULE PO SCH (21:28)
[2022-01-21] MEDS: ONDANSETRON 4 MG/2 ML VIAL IV SCH ×4 (00:36→18:01)
[2022-01-21] MEDS: LEVOTHYROXINE 100 MCG TABLET PO SCH (05:44)
[2022-01-21 06:09] LABS: Basophils % 0.5 % (0.0-0.8); Eosinophils # 0.1 10*3/uL (0.0-0.87); Eosinophils % 1.3 % (0.00-10.9); Hematocrit 29.2 VOL% (35.7-47.0); Hemoglobin 8.5 GM/DL (12.0-16.0); Immature Granulocytes % 0.9 %; Immature Granulocytes Absolute 0.08 #; Lymphocytes # 1.1 10*3/uL (1.4-4.0); Mean Corpuscular HGB Conc 29.1 GM/DL (32-36); Mean Corpuscular Volume 102.8 FL (87-102); Mean Platelet Volume 11.1 FL (9.6-12.0); Monocytes # 0.7 10*3/uL (0.11-0.8); Monocytes % 7.6 % (1.7-12.7); Neutrophils % 76.7 % (38.7-73.9); Platelet Count 173 T/CUMM (130-400); Red Blood Count 2.84 MC/CUMM (3.8-5.5); Red Cell Distribution Width 19.9 % (9.3-17.3); White Blood Count 8.5 T/CUMM (4-12)
[2022-01-21 07:02] LABS: Calcium 8.4 MG/DL (8.5-10.1); Osmolality,Calculated 269.4 MOS/KG (273-304); Potassium 5.1 MMOL/L (3.5-5.1)
[2022-01-21] MEDS: INSULIN LISPRO 100 UNIT/ML SUBCUT SCH ×4 (09:50→21:54)
[2022-01-21] MEDS: buPROPion XL 150 MG TABLET PO SCH (09:56)
[2022-01-21] MEDS: ASPIRIN EC 81 MG TABLET PO SCH (09:56)
[2022-01-21] MEDS: LINACLOTIDE 145 MCG CAPSULE PO SCH (09:56)
[2022-01-21] MEDS: ROSUVASTATIN 20 MG TABLET PO SCH (09:57)
[2022-01-21] MEDS: prednisoLONE ACETATE 1% OPH SUSP 5 ML BOTTLE RIGHT EYE SCH ×4 (09:57→21:55)
[2022-01-21] MEDS: ATROPINE 1 % OPH SOLN 5 ML BOTTLE RIGHT EYE SCH ×4 (09:57→21:55)
[2022-01-21] MEDS: allopurinoL 100 MG TABLET PO SCH (09:57)
[2022-01-21] MEDS: CHOLECALCIFEROL 5,000 UNIT TABLET PO SCH (09:57)
[2022-01-21] MEDS: ACETAMINOPHEN 325 MG TABLET PO PRN (09:57)
[2022-01-21] MEDS: DOCUSATE SODIUM 100 MG CAPSULE PO SCH ×2 (09:58→21:54)
[2022-01-21] MEDS: HYDROCORTISONE 25 MG SUPP RECTAL SCH ×2 (09:59→21:54)
[2022-01-21] MEDS: POLYETHYLENE GLYCOL POWDER 17 GM PACK PO SCH (10:06)
[2022-01-21] MEDS: CEFEPIME 1,000 MG in SODIUM CHLORIDE 0.9% 100 ML IV SCH (17:19)
[2022-01-21] MEDS: ESCITALOPRAM 10 MG TABLET PO SCH (21:52)
[2022-01-21] MEDS: GABAPENTIN 100 MG CAPSULE PO SCH (21:52)
[2022-01-21] MEDS: MELATONIN 3 MG TABLET PO SCH (21:52)
[2022-01-22] MEDS: ONDANSETRON 4 MG/2 ML VIAL IV SCH ×4 (00:30→17:54)
[2022-01-22] MEDS: LEVOTHYROXINE 100 MCG TABLET PO SCH (05:33)
[2022-01-22 05:45] LABS: Basophils # 0.1 10*3/uL (0.0-0.2); Basophils % 0.7 % (0.0-0.8); Eosinophils # 0.1 10*3/uL (0.0-0.87); Eosinophils % 1.9 % (0.00-10.9); Hematocrit 28.8 VOL% (35.7-47.0); Hemoglobin 8.5 GM/DL (12.0-16.0); Immature Granulocytes % 0.9 %; Immature Granulocytes Absolute 0.06 #; Lymphocytes # 1.3 10*3/uL (1.4-4.0); Lymphocytes % 18.7 % (21.3-54.2); Mean Corpuscular HGB Conc 29.5 GM/DL (32-36); Mean Corpuscular Volume 101.4 FL (87-102); Mean Platelet Volume 9.8 FL (9.6-12.0); Monocytes # 0.6 10*3/uL (0.11-0.8); Monocytes % 9.4 % (1.7-12.7); Neutrophils % 68.4 % (38.7-73.9); Platelet Count 193 T/CUMM (130-400); Red Blood Count 2.84 MC/CUMM (3.8-5.5); Red Cell Distribution Width 19.6 % (9.3-17.3); White Blood Count 6.8 T/CUMM (4-12)
[2022-01-22 05:54] LABS: INR 2.8; PT Patient Result 28.4 SECS (10.5-12.0)
[2022-01-22 06:13] LABS: Calcium 8.9 MG/DL (8.5-10.1); Osmolality,Calculated 280.7 MOS/KG (273-304); Potassium 4.6 MMOL/L (3.5-5.1)
[2022-01-22] MEDS: CHOLECALCIFEROL 5,000 UNIT TABLET PO SCH (10:37)
[2022-01-22] MEDS: LINACLOTIDE 145 MCG CAPSULE PO SCH (10:37)
[2022-01-22] MEDS: ASPIRIN EC 81 MG TABLET PO SCH (10:37)
[2022-01-22] MEDS: ROSUVASTATIN 20 MG TABLET PO SCH (10:37)
[2022-01-22] MEDS: buPROPion XL 150 MG TABLET PO SCH (10:37)
[2022-01-22] MEDS: prednisoLONE ACETATE 1% OPH SUSP 5 ML BOTTLE RIGHT EYE SCH ×4 (10:37→21:53)
[2022-01-22] MEDS: allopurinoL 100 MG TABLET PO SCH (10:37)
[2022-01-22] MEDS: ATROPINE 1 % OPH SOLN 5 ML BOTTLE RIGHT EYE SCH ×4 (10:37→21:53)
[2022-01-22] MEDS: INSULIN LISPRO 100 UNIT/ML SUBCUT SCH ×4 (10:42→21:51)
[2022-01-22] MEDS: DOCUSATE SODIUM 100 MG CAPSULE PO SCH ×2 (10:43→21:50)
[2022-01-22] MEDS: HYDROCORTISONE 25 MG SUPP RECTAL SCH ×2 (10:43→21:50)
[2022-01-22] MEDS: POLYETHYLENE GLYCOL POWDER 17 GM PACK PO SCH (10:43)
[2022-01-22] MEDS: CEFEPIME 1,000 MG in SODIUM CHLORIDE 0.9% 100 ML IV SCH (17:10)
[2022-01-22] MEDS: GABAPENTIN 100 MG CAPSULE PO SCH (21:50)
[2022-01-22] MEDS: MELATONIN 3 MG TABLET PO SCH (21:50)
[2022-01-22] MEDS: ESCITALOPRAM 10 MG TABLET PO SCH (21:50)
[2022-01-23] MEDS: ONDANSETRON 4 MG/2 ML VIAL IV SCH ×3 (00:46→13:50)
[2022-01-23] MEDS: LEVOTHYROXINE 100 MCG TABLET PO SCH (06:28)
[2022-01-23 06:32] LABS: INR 2.9; PT Patient Result 29.6 SECS (10.5-12.0)
[2022-01-23] MEDS: INSULIN LISPRO 100 UNIT/ML SUBCUT SCH ×2 (08:17→12:44)
[2022-01-23 08:42] LABS: Hematocrit 28.7 VOL% (35.7-47.0); Hemoglobin 8.6 GM/DL (12.0-16.0)
[2022-01-23] MEDS ORDERED: MEGESTROL 40 MG TABLET PO SCH (09:00)
[2022-01-23] MEDS: buPROPion XL 150 MG TABLET PO SCH (12:22)
[2022-01-23] MEDS: ROSUVASTATIN 20 MG TABLET PO SCH (12:22)
[2022-01-23] MEDS: ASPIRIN EC 81 MG TABLET PO SCH (12:22)
[2022-01-23] MEDS: allopurinoL 100 MG TABLET PO SCH (12:22)
[2022-01-23] MEDS: DOCUSATE SODIUM 100 MG CAPSULE PO SCH (12:22)
[2022-01-23] MEDS: ATROPINE 1 % OPH SOLN 5 ML BOTTLE RIGHT EYE SCH ×2 (12:23→13:50)
[2022-01-23] MEDS: prednisoLONE ACETATE 1% OPH SUSP 5 ML BOTTLE RIGHT EYE SCH ×2 (12:23→13:50)
[2022-01-23] MEDS: POLYETHYLENE GLYCOL POWDER 17 GM PACK PO SCH (12:23)
[2022-01-23] MEDS: LINACLOTIDE 145 MCG CAPSULE PO SCH (12:23)
[2022-01-23] MEDS: CHOLECALCIFEROL 5,000 UNIT TABLET PO SCH (12:23)
[2022-01-23 12:44] VITALS: BP 107/57
[2022-01-23] MEDS: HYDROCORTISONE 25 MG SUPP RECTAL SCH (13:49)
== END 2022-01-23 14:28 | DRG 881 ==
LOC: EDBD → SUATTDRO → EDUNIT# → N.ED 12:49 → N.EDINP 15:48 → SUATTDRO 15:48 → N.EDINP 23:35 → N.TELEN 01-14 00:33
PROVIDERS: ADMIT Internal Medicine; ATTEND Family Medicine

== ENCOUNTER 2022-03-01 17:14 | Inpatient (IN) ==
[2022-03-01 19:24] LABS: Basophils # 0.1 10*3/uL (0.0-0.2); Basophils % 0.7 % (0.0-0.8); Eosinophils # 0.1 10*3/uL (0.0-0.87); Eosinophils % 0.9 % (0.00-10.9); Hematocrit 31.4 VOL% (35.7-47.0); Hemoglobin 9.4 GM/DL (12.0-16.0); Immature Granulocytes % 0.4 %; Immature Granulocytes Absolute 0.03 #; Lymphocytes # 1.2 10*3/uL (1.4-4.0); Lymphocytes % 17.6 % (21.3-54.2); Mean Corpuscular HGB Conc 29.9 GM/DL (32-36); Mean Platelet Volume 10.3 FL (9.6-12.0); Monocytes # 0.7 10*3/uL (0.11-0.8); Monocytes % 9.8 % (1.7-12.7); Neutrophils % 70.6 % (38.7-73.9); Platelet Count 151 T/CUMM (130-400); Red Blood Count 3.14 MC/CUMM (3.8-5.5); Red Cell Distribution Width 19.2 % (9.3-17.3); White Blood Count 6.7 T/CUMM (4-12)
[2022-03-01 19:41] LABS: Albumin 2.5 G/DL (3.4-5.0); Calcium 9.6 MG/DL (8.5-10.1); Osmolality,Calculated 284.3 MOS/KG (273-304); Potassium 2.9 MMOL/L (3.5-5.1); Total Protein 6.2 G/DL (6.4-8.2)
[2022-03-01] MEDS ORDERED: ENOXAPARIN 100 MG/ML SYRINGE SUBCUT STA (20:08)
[2022-03-01] MEDS ORDERED: ENOXAPARIN 120 MG/0.8 ML SYRINGE SUBCUT STA (20:11)
[2022-03-01] MEDS ORDERED: POTASSIUM CHLORIDE 20 MEQ TABLET PO STA (20:14)
[2022-03-01 20:33] LABS: INR 1.2; PT Patient Result 12.9 SECS (10.1-12.1)
[2022-03-01] MEDS ORDERED: ACETAMINOPHEN 325 MG TABLET PO PRN (20:49)
[2022-03-01] MEDS ORDERED: DOCUSATE SODIUM 100 MG CAPSULE PO PRN (20:49)
[2022-03-01] MEDS ORDERED: guaiFENesin/DM ER 600-30 MG TABLET PO PRN (20:49)
[2022-03-01] MEDS ORDERED: GLUCAGON 1 MG VIAL IM PRN (20:49)
[2022-03-01] MEDS ORDERED: NICOTINE 21 MG/24 HR PATCH TRANSDERM PRN (20:49)
[2022-03-01] MEDS ORDERED: ONDANSETRON 4 MG/2 ML VIAL IV PRN (20:49)
[2022-03-01] MEDS ORDERED: hydrALAZINE 20 MG/1 ML VIAL IV PRN (20:49)
[2022-03-01] MEDS ORDERED: ZALEPLON 5 MG CAPSULE PO PRN (20:49)
[2022-03-01] MEDS ORDERED: DEXTROSE 10% 250 ML BAG IV PRN (21:09)
[2022-03-02] MEDS ORDERED: CLINDAMYCIN 15 MG/ML 100 ML/BOTTLE PO ONE (00:39)
[2022-03-02] MEDS: CLINDAMYCIN INJ 600 MG/50 ML PREMIX IV SCH ×2 (05:15→09:06)
[2022-03-02 06:00] LABS: Basophils # 0.1 10*3/uL (0.0-0.2); Basophils % 0.9 % (0.0-0.8); Eosinophils # 0.1 10*3/uL (0.0-0.87); Eosinophils % 1.5 % (0.00-10.9); Hematocrit 28.8 VOL% (35.7-47.0); Hemoglobin 8.6 GM/DL (12.0-16.0); Immature Granulocytes % 0.4 %; Immature Granulocytes Absolute 0.02 #; Lymphocytes # 1.1 10*3/uL (1.4-4.0); Lymphocytes % 20.4 % (21.3-54.2); Mean Corpuscular HGB Conc 29.9 GM/DL (32-36); Mean Corpuscular Volume 100.3 FL (87-102); Mean Platelet Volume 10.5 FL (9.6-12.0); Monocytes # 0.5 10*3/uL (0.11-0.8); Monocytes % 9.6 % (1.7-12.7); Neutrophils % 67.2 % (38.7-73.9); Platelet Count 126 T/CUMM (130-400); Red Blood Count 2.87 MC/CUMM (3.8-5.5); White Blood Count 5.3 T/CUMM (4-12)
[2022-03-02 06:09] LABS: INR 1.2
[2022-03-02 06:13] LABS: Calcium 9.8 MG/DL (8.5-10.1); Osmolality,Calculated 283.5 MOS/KG (273-304); Potassium 3.1 MMOL/L (3.5-5.1)
[2022-03-02 07:00] LABS: Anisocytosis 2+; Basophilic Stippling Slight; Macrocytosis 1+; Platelet Estimate Adequate; Target Cells Few; Tear Drop Cells Few
[2022-03-02] MEDS ORDERED: POTASSIUM CHLORIDE 20 MEQ TABLET PO ONE (07:38)
[2022-03-02] MEDS ORDERED: PANTOPRAZOLE 40 MG TABLET PO SCH (09:00)
[2022-03-02] MEDS: MORPHINE 2 MG/1 ML SYRINGE IV PRN ×2 (09:19→15:46)
[2022-03-02] MEDS ORDERED: ENOXAPARIN 120 MG/0.8 ML SYRINGE SUBCUT SCH (11:00)
[2022-03-02 16:27] VITALS: BP 101/52
[2022-03-02] MEDS ORDERED: ATORVASTATIN 40 MG TABLET PO SCH (17:00)
[2022-03-02] MEDS ORDERED: ATROPINE 1 % OPH SOLN 5 ML BOTTLE RIGHT EYE SCH (17:00)
[2022-03-02] MEDS ORDERED: WARFARIN 5 MG TABLET PO SCH ×2 (18:00)
[2022-03-02] MEDS ORDERED: HEPARIN DRIP 25,000 UNITS/500 ML PREMIX IV SCH (18:00)
[2022-03-02] MEDS ORDERED: INSULIN NPH/REGULAR 70/30 100 UNIT/ML SUBCUT SCH (21:00)
[2022-03-02] MEDS ORDERED: MELATONIN 3 MG TABLET PO SCH (21:00)
[2022-03-02] MEDS ORDERED: GABAPENTIN 100 MG CAPSULE PO SCH (21:00)
[2022-03-02] MEDS ORDERED: ESCITALOPRAM 10 MG TABLET PO SCH (21:00)
[2022-03-02] MEDS ORDERED: buPROPion 75 MG TABLET PO SCH (21:00)
[2022-03-02] MEDS ORDERED: DOCUSATE SODIUM 100 MG/10 ML UDCUP PO SCH (21:00)
[2022-03-03] MEDS ORDERED: LEVOTHYROXINE 100 MCG TABLET PO SCH (06:30)
[2022-03-03] MEDS ORDERED: POLYETHYLENE GLYCOL POWDER 17 GM PACK PO SCH (09:00)
[2022-03-03] MEDS ORDERED: ASPIRIN EC 81 MG TABLET PO SCH (09:00)
[2022-03-03] MEDS ORDERED: CHOLECALCIFEROL 5,000 UNIT TABLET PO SCH (09:00)
[2022-03-03] MEDS ORDERED: allopurinoL 100 MG TABLET PO SCH (09:00)
[2022-03-03] MEDS ORDERED: INSULIN NPH/REGULAR 70/30 100 UNIT/ML SUBCUT SCH (09:00)
[2022-03-03] MEDS ORDERED: FOLIC ACID 1 MG TABLET PO SCH (09:00)
[2022-03-03] MEDS ORDERED: MIDODRINE 5 MG TABLET PO SCH (09:00)
[2022-03-03] MEDS ORDERED: PANTOPRAZOLE 40 MG TABLET PO SCH (09:00)
== END 2022-03-02 17:56 | disposition home health service (06) | DRG 299 ==
LOC: N.ED 17:14 → N.EDINP 20:49 → N.3E 22:50
PROVIDERS: ADMIT Internal Medicine; ATTEND Internal Medicine

== ENCOUNTER 2022-03-29 01:29 | Inpatient (IN) ==
[2022-03-29] MEDS ORDERED: methylPREDNISolone SOD SUC 125 MG/2 ML VIAL IV STA (03:12)
[2022-03-29] MEDS ORDERED: ALBUTEROL/IPRATROPIUM 3 ML NEB RESP TX STA (03:12)
[2022-03-29] MEDS ORDERED: ONDANSETRON 4 MG/2 ML VIAL IV STA (03:13)
[2022-03-29 03:21] LABS: Basophils % 0.2 % (0.0-0.8); Eosinophils # 0.1 10*3/uL (0.0-0.87); Eosinophils % 0.4 % (0.00-10.9); Hematocrit 21.4 VOL% (35.7-47.0); Hemoglobin 6.9 GM/DL (12.0-16.0); Immature Granulocytes % 0.9 %; Immature Granulocytes Absolute 0.12 #; Lymphocytes # 0.8 10*3/uL (1.4-4.0); Lymphocytes % 5.6 % (21.3-54.2); Mean Corpuscular HGB Conc 32.2 GM/DL (32-36); Mean Platelet Volume 11.3 FL (9.6-12.0); Monocytes # 1.2 10*3/uL (0.11-0.8); Monocytes % 8.6 % (1.7-12.7); NRBC # 0.12 10*3/uL; Neutrophils % 84.3 % (38.7-73.9); Platelet Count 292 T/CUMM (130-400); Red Blood Count 2.23 MC/CUMM (3.8-5.5); Red Cell Distribution Width 17.5 % (9.3-17.3); White Blood Count 13.8 T/CUMM (4-12)
[2022-03-29] MEDS ORDERED: LACTATED RINGERS 250 ML IV ONE (03:25)
[2022-03-29] MEDS ORDERED: VANCOMYCIN INJ 1,000 MG in SODIUM CHLORIDE 0.9% 250 ML IV STA (03:31)
[2022-03-29 03:33] LABS: Alanine Aminotransferase 17 U/L (13-56); Albumin 1.5 G/DL (3.4-5.0); Alkaline Phosphatase 85 U/L (45-117); Aspartate Amino Transferase 16 U/L (0-37); Blood Urea Nitrogen 21 MG/DL (7-18); Calcium 8.9 MG/DL (8.5-10.1); Carbon Dioxide 23 MMOL/L (21-32); Chloride 103 MMOL/L (98-107); Glucose 137 MG/DL (74-106); Potassium 4.3 MMOL/L (3.5-5.1); Sodium 136 MMOL/L (136-145); Total Protein 6.4 G/DL (6.4-8.2)
[2022-03-29] MEDS ORDERED: LACTATED RINGERS 250 ML IV SCH (03:45)
[2022-03-29] MEDS ORDERED: ONDANSETRON 4 MG/2 ML VIAL IV PRN (04:49)
[2022-03-29] MEDS ORDERED: DEXTROSE 10% 250 ML BAG IV PRN (04:49)
[2022-03-29] MEDS ORDERED: hydrALAZINE 20 MG/1 ML VIAL IV PRN (04:49)
[2022-03-29] MEDS ORDERED: GLUCAGON 1 MG VIAL IM PRN ×2 (04:49→14:13)
[2022-03-29] MEDS ORDERED: SODIUM CHLORIDE 0.9% 1,000 ML IV PRN (04:58)
[2022-03-29 05:18] LABS: INR 2.1; PT Patient Result 21.6 SECS (10.1-12.1)
[2022-03-29] MEDS ORDERED: CLINDAMYCIN INJ 600 MG/50 ML PREMIX IV SCH (05:30)
[2022-03-29] MEDS ORDERED: VANCOMYCIN INJ 1,000 MG in SODIUM CHLORIDE 0.9% 250 ML IV PRN (06:05)
[2022-03-29] MEDS ORDERED: VANCOMYCIN INJ 2,500 MG in SODIUM CHLORIDE 0.9% 500 ML IV ONE (06:30)
[2022-03-29] MEDS ORDERED: VANCOMYCIN INJ 1,500 MG in SODIUM CHLORIDE 0.9% 500 ML IV STA (07:27)
[2022-03-29 09:00] LABS: Free T4 (Free Thyroxine) 1.17 NG/DL (0.76-1.46)
[2022-03-29] MEDS: MORPHINE 2 MG/1 ML SYRINGE IV PRN (09:20)
[2022-03-29] MEDS ORDERED: MAGNESIUM SULF RIDER 4 GM/100 ML PREMIX IV ONE (09:30)
[2022-03-29] MEDS: INSULIN LISPRO 100 UNIT/ML SUBCUT SCH ×4 (09:54→20:41)
[2022-03-29] MEDS: buPROPion 75 MG TABLET PO SCH ×2 (10:00→20:41)
[2022-03-29] MEDS: PANTOPRAZOLE 40 MG TABLET PO SCH (10:00)
[2022-03-29] MEDS: FOLIC ACID 1 MG TABLET PO SCH (10:00)
[2022-03-29] MEDS: CHOLECALCIFEROL 5,000 UNIT TABLET PO SCH (10:00)
[2022-03-29] MEDS: ASPIRIN EC 81 MG TABLET PO SCH (10:00)
[2022-03-29] MEDS: allopurinoL 100 MG TABLET PO SCH (10:00)
[2022-03-29] MEDS: MIDODRINE 5 MG TABLET PO SCH (10:00)
[2022-03-29] MEDS: POLYETHYLENE GLYCOL POWDER 17 GM PACK PO SCH (10:25)
[2022-03-29] MEDS: DOCUSATE SODIUM 100 MG/10 ML UDCUP PO SCH ×2 (10:25→20:41)
[2022-03-29] MEDS: LEVOTHYROXINE 100 MCG TABLET PO SCH (10:30)
[2022-03-29] MEDS: MEROPENEM 500 MG in SODIUM CHLORIDE 0.9% 100 ML IV SCH (10:31)
[2022-03-29] MEDS: ATROPINE 1 % OPH SOLN 5 ML BOTTLE RIGHT EYE SCH ×4 (10:31→20:42)
[2022-03-29] MEDS: LORazepam 1 MG TABLET PO PRN (10:50)
[2022-03-29 12:58] LABS: Hematocrit 26.3 VOL% (35.7-47.0); Hemoglobin 8.2 GM/DL (12.0-16.0)
[2022-03-29] MEDS ORDERED: DEXTROSE 50% 25 GM/50 ML VIAL IV PRN (14:13)
[2022-03-29] MEDS: DESITIN 4OZ/NYSTATIN 15 GRAM MIXTURE PASTE TOP SCH ×2 (16:24→20:43)
[2022-03-29] MEDS: ATORVASTATIN 40 MG TABLET PO SCH (18:20)
[2022-03-29] MEDS: GABAPENTIN 100 MG CAPSULE PO SCH (20:41)
[2022-03-29] MEDS: ESCITALOPRAM 10 MG TABLET PO SCH (20:41)
[2022-03-29] MEDS: MELATONIN 3 MG TABLET PO SCH (20:42)
[2022-03-30] MEDS: MEROPENEM 500 MG in SODIUM CHLORIDE 0.9% 100 ML IV SCH (05:45)
[2022-03-30] MEDS: LEVOTHYROXINE 100 MCG TABLET PO SCH (06:16)
[2022-03-30 09:08] LABS: Albumin 1.5 G/DL (3.4-5.0); Bilirubin,Total 0.5 MG/DL (0.20-1.00); Calcium 9.3 MG/DL (8.5-10.1); Osmolality,Calculated 278.2 MOS/KG (273-304); Potassium 5.1 MMOL/L (3.5-5.1); Total Protein 6.8 G/DL (6.4-8.2)
[2022-03-30 09:14] LABS: Basophils % 0.1 % (0.0-0.8); Hematocrit 24.5 VOL% (35.7-47.0); Hemoglobin 7.7 GM/DL (12.0-16.0); Immature Granulocytes Absolute 0.15 #; Lymphocytes # 0.3 10*3/uL (1.4-4.0); Lymphocytes % 2.1 % (21.3-54.2); Mean Corpuscular HGB Conc 31.4 GM/DL (32-36); Mean Corpuscular Volume 95.7 FL (87-102); Mean Platelet Volume 10.5 FL (9.6-12.0); Monocytes # 0.5 10*3/uL (0.11-0.8); Monocytes % 2.9 % (1.7-12.7); NRBC # 0.04 10*3/uL; Neutrophils % 93.9 % (38.7-73.9); Platelet Count 293 T/CUMM (130-400); Red Blood Count 2.56 MC/CUMM (3.8-5.5); Red Cell Distribution Width 17.4 % (9.3-17.3); White Blood Count 15.3 T/CUMM (4-12)
[2022-03-30 09:34] LABS: Anisocytosis 1+; Band Neutrophils 3 % (0-10); Lymphocytes 3 % (20-55); Macrocytosis 2+; Platelet Estimate Normal; Target Cells Few; Total Cells Counted 100
[2022-03-30] MEDS ORDERED: DEXTROSE 10% 250 ML BAG IV PRN (12:02)
[2022-03-30] MEDS ORDERED: GLUCAGON 1 MG VIAL IM PRN (12:02)
[2022-03-30] MEDS: INSULIN LISPRO 100 UNIT/ML SUBCUT SCH ×4 (12:07→23:40)
[2022-03-30] MEDS: ATROPINE 1 % OPH SOLN 5 ML BOTTLE RIGHT EYE SCH ×4 (12:36→20:50)
[2022-03-30] MEDS: DESITIN 4OZ/NYSTATIN 15 GRAM MIXTURE PASTE TOP SCH ×2 (12:36→20:50)
[2022-03-30] MEDS: MEGESTROL 40 MG TABLET PO SCH (15:27)
[2022-03-30] MEDS: buPROPion 75 MG TABLET PO SCH ×2 (15:27→20:51)
[2022-03-30] MEDS: DOCUSATE SODIUM 100 MG/10 ML UDCUP PO SCH ×2 (15:28→20:50)
[2022-03-30] MEDS: ASPIRIN EC 81 MG TABLET PO SCH (15:28)
[2022-03-30] MEDS: FOLIC ACID 1 MG TABLET PO SCH (15:28)
[2022-03-30] MEDS: MIDODRINE 5 MG TABLET PO SCH (15:28)
[2022-03-30] MEDS: POLYETHYLENE GLYCOL POWDER 17 GM PACK PO SCH (15:28)
[2022-03-30] MEDS: CHOLECALCIFEROL 5,000 UNIT TABLET PO SCH (15:28)
[2022-03-30] MEDS: PANTOPRAZOLE 40 MG TABLET PO SCH (15:28)
[2022-03-30] MEDS: allopurinoL 100 MG TABLET PO SCH (15:28)
[2022-03-30] MEDS ORDERED: EPOETIN ALFA-EPBX 10,000 UNIT/ML VIAL IV SCH (16:30)
[2022-03-30] MEDS ORDERED: VANCOMYCIN INJ 1,000 MG in SODIUM CHLORIDE 0.9% 250 ML IV ONE (17:00)
[2022-03-30] MEDS: ATORVASTATIN 40 MG TABLET PO SCH (17:45)
[2022-03-30] MEDS: ACETAMINOPHEN 325 MG TABLET PO PRN (18:31)
[2022-03-30] MEDS: ESCITALOPRAM 10 MG TABLET PO SCH (20:51)
[2022-03-30] MEDS: MELATONIN 3 MG TABLET PO SCH (20:51)
[2022-03-30] MEDS: GABAPENTIN 100 MG CAPSULE PO SCH (20:51)
[2022-03-31] MEDS: MEROPENEM 500 MG in SODIUM CHLORIDE 0.9% 100 ML IV SCH (05:48)
[2022-03-31] MEDS: LEVOTHYROXINE 100 MCG TABLET PO SCH (05:48)
[2022-03-31] MEDS: ACETAMINOPHEN 325 MG TABLET PO PRN (09:17)
[2022-03-31] MEDS: INSULIN LISPRO 100 UNIT/ML SUBCUT SCH ×4 (09:18→21:15)
[2022-03-31] MEDS ORDERED: ALBUMIN 25% 25 GM/100 ML VIAL IV ONE (10:30)
[2022-03-31 10:33] LABS: Basophils % 0.1 % (0.0-0.8); Hematocrit 25.9 VOL% (35.7-47.0); Hemoglobin 8.2 GM/DL (12.0-16.0); Immature Granulocytes % 0.7 %; Lymphocytes # 0.3 10*3/uL (1.4-4.0); Lymphocytes % 2.2 % (21.3-54.2); Mean Corpuscular HGB Conc 31.7 GM/DL (32-36); Mean Corpuscular Volume 97.4 FL (87-102); Mean Platelet Volume 9.9 FL (9.6-12.0); Monocytes # 0.4 10*3/uL (0.11-0.8); Monocytes % 2.9 % (1.7-12.7); NRBC # 0.05 10*3/uL; Neutrophils % 94.1 % (38.7-73.9); Platelet Count 276 T/CUMM (130-400); Red Blood Count 2.66 MC/CUMM (3.8-5.5); Red Cell Distribution Width 17.5 % (9.3-17.3); White Blood Count 14.4 T/CUMM (4-12)
[2022-03-31] MEDS ORDERED: HEPARIN 10,000 UNIT/10 ML VIAL IV PRN (10:37)
[2022-03-31 10:56] LABS: Alanine Aminotransferase 21 U/L (13-56); Albumin 1.6 G/DL (3.4-5.0); Alkaline Phosphatase 85 U/L (45-117); Aspartate Amino Transferase 26 U/L (0-37); Bilirubin,Total < 0.39 MG/DL (0.20-1.00); Blood Urea Nitrogen 38 MG/DL (7-18); Calcium 8.9 MG/DL (8.5-10.1); Carbon Dioxide 26 MMOL/L (21-32); Chloride 103 MMOL/L (98-107); Glucose 272 MG/DL (74-106); Osmolality,Calculated 293.7 MOS/KG (273-304); Potassium 4.1 MMOL/L (3.5-5.1); Sodium 138 MMOL/L (136-145); Total Protein 6.6 G/DL (6.4-8.2)
[2022-03-31] MEDS ORDERED: EPOETIN ALFA-EPBX 10,000 UNIT/ML VIAL IV SCH (11:00)
[2022-03-31 11:05] LABS: Hypochromia Slight; Lymphocytes 2 % (20-55); Microcytosis Slight; Platelet Estimate Adequate; Total Cells Counted 100
[2022-03-31 11:17] LABS: INR 1.8; PT Patient Result 19.3 SECS (10.1-12.1)
[2022-03-31] MEDS: DESITIN 4OZ/NYSTATIN 15 GRAM MIXTURE PASTE TOP SCH ×2 (13:56→21:14)
[2022-03-31] MEDS: FOLIC ACID 1 MG TABLET PO SCH (13:56)
[2022-03-31] MEDS: allopurinoL 100 MG TABLET PO SCH (13:56)
[2022-03-31] MEDS: CHOLECALCIFEROL 5,000 UNIT TABLET PO SCH (13:56)
[2022-03-31] MEDS: buPROPion 75 MG TABLET PO SCH ×2 (13:56→21:14)
[2022-03-31] MEDS: ASPIRIN EC 81 MG TABLET PO SCH (13:56)
[2022-03-31] MEDS: PANTOPRAZOLE 40 MG TABLET PO SCH (13:56)
[2022-03-31] MEDS: MEGESTROL 40 MG TABLET PO SCH (13:56)
[2022-03-31] MEDS: MIDODRINE 5 MG TABLET PO SCH (13:56)
[2022-03-31] MEDS: DOCUSATE SODIUM 100 MG/10 ML UDCUP PO SCH ×2 (13:56→21:15)
[2022-03-31] MEDS: POLYETHYLENE GLYCOL POWDER 17 GM PACK PO SCH (13:56)
[2022-03-31] MEDS: ATROPINE 1 % OPH SOLN 5 ML BOTTLE RIGHT EYE SCH ×4 (13:56→21:14)
[2022-03-31] MEDS: MORPHINE 2 MG/1 ML SYRINGE IV PRN (17:16)
[2022-03-31] MEDS: ATORVASTATIN 40 MG TABLET PO SCH (18:20)
[2022-03-31] MEDS: LORazepam 1 MG TABLET PO PRN (18:21)
[2022-03-31] MEDS: GABAPENTIN 100 MG CAPSULE PO SCH (21:14)
[2022-03-31] MEDS: ESCITALOPRAM 10 MG TABLET PO SCH (21:14)
[2022-03-31] MEDS: MELATONIN 3 MG TABLET PO SCH (21:14)
[2022-04-01] MEDS: LEVOTHYROXINE 100 MCG TABLET PO SCH (06:02)
[2022-04-01] MEDS: MEROPENEM 500 MG in SODIUM CHLORIDE 0.9% 100 ML IV SCH (06:06)
[2022-04-01] MEDS: FOLIC ACID 1 MG TABLET PO SCH (09:41)
[2022-04-01] MEDS: ASPIRIN EC 81 MG TABLET PO SCH (09:41)
[2022-04-01] MEDS: ATROPINE 1 % OPH SOLN 5 ML BOTTLE RIGHT EYE SCH ×4 (09:41→22:08)
[2022-04-01] MEDS: allopurinoL 100 MG TABLET PO SCH (09:41)
[2022-04-01] MEDS: buPROPion 75 MG TABLET PO SCH ×2 (09:41→22:08)
[2022-04-01] MEDS: CHOLECALCIFEROL 5,000 UNIT TABLET PO SCH (09:41)
[2022-04-01] MEDS: DOCUSATE SODIUM 100 MG/10 ML UDCUP PO SCH ×2 (09:41→22:07)
[2022-04-01] MEDS: PANTOPRAZOLE 40 MG TABLET PO SCH (09:41)
[2022-04-01] MEDS: POLYETHYLENE GLYCOL POWDER 17 GM PACK PO SCH (09:41)
[2022-04-01] MEDS: MIDODRINE 5 MG TABLET PO SCH (09:42)
[2022-04-01] MEDS: MEGESTROL 40 MG TABLET PO SCH (09:42)
[2022-04-01] MEDS: INSULIN LISPRO 100 UNIT/ML SUBCUT SCH ×4 (09:43→22:08)
[2022-04-01] MEDS: DESITIN 4OZ/NYSTATIN 15 GRAM MIXTURE PASTE TOP SCH ×2 (09:43→22:09)
[2022-04-01 12:08] LABS: Basophils % 0.1 % (0.0-0.8); Eosinophils # 0.1 10*3/uL (0.0-0.87); Eosinophils % 0.4 % (0.00-10.9); Hematocrit 27.8 VOL% (35.7-47.0); Hemoglobin 8.6 GM/DL (12.0-16.0); Immature Granulocytes % 0.7 %; Immature Granulocytes Absolute 0.09 #; Lymphocytes # 1.1 10*3/uL (1.4-4.0); Lymphocytes % 8.8 % (21.3-54.2); Mean Corpuscular HGB Conc 30.9 GM/DL (32-36); Mean Corpuscular Volume 96.9 FL (87-102); Mean Platelet Volume 10.9 FL (9.6-12.0); Monocytes # 0.7 10*3/uL (0.11-0.8); Monocytes % 5.9 % (1.7-12.7); NRBC # 0.09 10*3/uL; Neutrophils % 84.1 % (38.7-73.9); Platelet Count 224 T/CUMM (130-400); Red Blood Count 2.87 MC/CUMM (3.8-5.5); Red Cell Distribution Width 17.9 % (9.3-17.3); White Blood Count 12.5 T/CUMM (4-12)
[2022-04-01 12:30] LABS: Albumin 1.6 G/DL (3.4-5.0); Bilirubin,Total 0.4 MG/DL (0.20-1.00); Calcium 9.1 MG/DL (8.5-10.1); Osmolality,Calculated 276.1 MOS/KG (273-304); Potassium 4.5 MMOL/L (3.5-5.1); Total Protein 6.3 G/DL (6.4-8.2)
[2022-04-01] MEDS: oxyCODONE/ACETAMINOPHEN 5-325 MG TABLET PO PRN ×2 (12:45→17:09)
[2022-04-01] MEDS: ATORVASTATIN 40 MG TABLET PO SCH (17:09)
[2022-04-01] MEDS: LORazepam 1 MG TABLET PO PRN (17:16)
[2022-04-01] MEDS: MELATONIN 3 MG TABLET PO SCH (22:08)
[2022-04-01] MEDS: GABAPENTIN 100 MG CAPSULE PO SCH (22:08)
[2022-04-01] MEDS: ESCITALOPRAM 10 MG TABLET PO SCH (22:08)
[2022-04-02] MEDS: LEVOTHYROXINE 100 MCG TABLET PO SCH (06:32)
[2022-04-02] MEDS: MEROPENEM 500 MG in SODIUM CHLORIDE 0.9% 100 ML IV SCH ×2 (06:33→22:19)
[2022-04-02 07:48] LABS: INR 2.1; PT Patient Result 21.7 SECS (10.1-12.1)
[2022-04-02] MEDS: buPROPion 75 MG TABLET PO SCH ×2 (08:52→22:23)
[2022-04-02] MEDS: ASPIRIN EC 81 MG TABLET PO SCH (08:52)
[2022-04-02] MEDS: MIDODRINE 5 MG TABLET PO SCH (08:52)
[2022-04-02] MEDS: DOCUSATE SODIUM 100 MG/10 ML UDCUP PO SCH ×2 (08:52→22:23)
[2022-04-02] MEDS: FOLIC ACID 1 MG TABLET PO SCH (08:52)
[2022-04-02] MEDS: oxyCODONE/ACETAMINOPHEN 5-325 MG TABLET PO PRN (08:53)
[2022-04-02] MEDS: PANTOPRAZOLE 40 MG TABLET PO SCH (08:53)
[2022-04-02] MEDS: MEGESTROL 40 MG TABLET PO SCH (08:53)
[2022-04-02] MEDS: allopurinoL 100 MG TABLET PO SCH (08:53)
[2022-04-02] MEDS: INSULIN LISPRO 100 UNIT/ML SUBCUT SCH ×4 (08:54→22:25)
[2022-04-02] MEDS: POLYETHYLENE GLYCOL POWDER 17 GM PACK PO SCH (08:54)
[2022-04-02] MEDS: CHOLECALCIFEROL 5,000 UNIT TABLET PO SCH (08:54)
[2022-04-02] MEDS: ATROPINE 1 % OPH SOLN 5 ML BOTTLE RIGHT EYE SCH ×4 (08:56→22:25)
[2022-04-02] MEDS ORDERED: DIAZEPAM 5 MG TABLET PO ONE (09:00)
[2022-04-02] MEDS ORDERED: fentaNYL 100 MCG/2 ML VIAL IV ONE (09:00)
[2022-04-02] MEDS ORDERED: MIDAZOLAM 2 MG/2 ML VIAL IV ONE (09:00)
[2022-04-02] MEDS: DESITIN 4OZ/NYSTATIN 15 GRAM MIXTURE PASTE TOP SCH (09:51)
[2022-04-02 10:14] LABS: Basophils % 0.1 % (0.0-0.8); Eosinophils # 0.1 10*3/uL (0.0-0.87); Eosinophils % 0.6 % (0.00-10.9); Hematocrit 27.3 VOL% (35.7-47.0); Hemoglobin 8.5 GM/DL (12.0-16.0); Immature Granulocytes % 0.9 %; Immature Granulocytes Absolute 0.14 #; Lymphocytes # 0.7 10*3/uL (1.4-4.0); Lymphocytes % 4.6 % (21.3-54.2); Mean Corpuscular HGB Conc 31.1 GM/DL (32-36); Mean Corpuscular Volume 96.8 FL (87-102); Mean Platelet Volume 11.1 FL (9.6-12.0); Monocytes # 0.6 10*3/uL (0.11-0.8); Monocytes % 4.1 % (1.7-12.7); NRBC # 0.05 10*3/uL; Neutrophils % 89.7 % (38.7-73.9); Platelet Count 271 T/CUMM (130-400); Red Blood Count 2.82 MC/CUMM (3.8-5.5); Red Cell Distribution Width 17.9 % (9.3-17.3)
[2022-04-02] MEDS: LORazepam 1 MG TABLET PO PRN (10:20)
[2022-04-02 10:35] LABS: Lymphocytes 4 % (20-55); Nucleated Red Blood Cells 1 /100 WBC (0-5); Platelet Estimate Adequate; Total Cells Counted 100
[2022-04-02] MEDS: MORPHINE 2 MG/1 ML SYRINGE IV PRN ×2 (12:20→18:29)
[2022-04-02] MEDS ORDERED: HEPARIN/NACL 0.9% 2 UNITS/ML 4,000 UNIT/2,000 ML BAG IV ONE (12:44)
[2022-04-02 12:45] LABS: Albumin 1.7 G/DL (3.4-5.0); Bilirubin,Total 0.4 MG/DL (0.20-1.00); Calcium 8.7 MG/DL (8.5-10.1); Osmolality,Calculated 289.5 MOS/KG (273-304); Potassium 4.6 MMOL/L (3.5-5.1); Total Protein 6.2 G/DL (6.4-8.2)
[2022-04-02] MEDS ORDERED: HEPARIN 5,000 UNIT/1 ML VIAL ONE (12:47)
[2022-04-02] MEDS ORDERED: VANCOMYCIN INJ 1,000 MG in SODIUM CHLORIDE 0.9% 250 ML IV ONE (17:00)
[2022-04-02] MEDS: MELATONIN 3 MG TABLET PO SCH (22:23)
[2022-04-02] MEDS: GABAPENTIN 100 MG CAPSULE PO SCH (22:23)
[2022-04-02] MEDS: ESCITALOPRAM 10 MG TABLET PO SCH (22:23)
[2022-04-02] MEDS: ATORVASTATIN 40 MG TABLET PO SCH (22:32)
[2022-04-03 05:59] LABS: Basophils % 0.1 % (0.0-0.8); Eosinophils % 0.1 % (0.00-10.9); Hematocrit 27.5 VOL% (35.7-47.0); Hemoglobin 8.7 GM/DL (12.0-16.0); Immature Granulocytes % 1.1 %; Immature Granulocytes Absolute 0.19 #; Lymphocytes # 0.7 10*3/uL (1.4-4.0); Lymphocytes % 3.9 % (21.3-54.2); Mean Corpuscular HGB Conc 31.6 GM/DL (32-36); Mean Corpuscular Volume 94.8 FL (87-102); Monocytes # 0.7 10*3/uL (0.11-0.8); Monocytes % 4.1 % (1.7-12.7); NRBC # 0.09 10*3/uL; Neutrophils % 90.7 % (38.7-73.9); Platelet Count 278 T/CUMM (130-400); Red Cell Distribution Width 17.6 % (9.3-17.3); White Blood Count 16.8 T/CUMM (4-12)
[2022-04-03 06:28] LABS: Hypochromia Slight; Lymphocytes 2 % (20-55); Microcytosis Slight; Nucleated Red Blood Cells 1 /100 WBC (0-5); Platelet Estimate Adequate; Total Cells Counted 100
[2022-04-03 06:29] LABS: Albumin 1.7 G/DL (3.4-5.0); Bilirubin,Total 0.6 MG/DL (0.20-1.00); Calcium 8.2 MG/DL (8.5-10.1); Potassium 4.3 MMOL/L (3.5-5.1); Total Protein 5.6 G/DL (6.4-8.2)
[2022-04-03] MEDS: LEVOTHYROXINE 100 MCG TABLET PO SCH (06:30)
[2022-04-03] MEDS: MORPHINE 2 MG/1 ML SYRINGE IV PRN (06:44)
[2022-04-03] MEDS: INSULIN LISPRO 100 UNIT/ML SUBCUT SCH ×3 (12:49→22:05)
[2022-04-03] MEDS: MIDODRINE 5 MG TABLET PO SCH ×2 (12:49→22:08)
[2022-04-03] MEDS: QUEtiapine 25 MG TABLET PO SCH (12:49)
[2022-04-03] MEDS: PANTOPRAZOLE 40 MG TABLET PO SCH (12:49)
[2022-04-03] MEDS: buPROPion 75 MG TABLET PO SCH ×2 (12:49→22:04)
[2022-04-03] MEDS: ATROPINE 1 % OPH SOLN 5 ML BOTTLE RIGHT EYE SCH ×4 (12:50→22:06)
[2022-04-03] MEDS: DESITIN 4OZ/NYSTATIN 15 GRAM MIXTURE PASTE TOP SCH ×2 (12:53→22:04)
[2022-04-03] MEDS: MEGESTROL 40 MG TABLET PO SCH (13:10)
[2022-04-03] MEDS: FOLIC ACID 1 MG TABLET PO SCH (13:10)
[2022-04-03] MEDS: DOCUSATE SODIUM 100 MG/10 ML UDCUP PO SCH ×2 (13:10→22:04)
[2022-04-03] MEDS: ASPIRIN EC 81 MG TABLET PO SCH (13:10)
[2022-04-03] MEDS: POLYETHYLENE GLYCOL POWDER 17 GM PACK PO SCH (13:11)
[2022-04-03] MEDS ORDERED: DEXMEDETOMIDINE 200 MCG/2 ML VIAL ONE (17:25)
[2022-04-03] MEDS ORDERED: MIDAZOLAM 2 MG/2 ML VIAL ONE (17:25)
[2022-04-03] MEDS ORDERED: KETAMINE 500 MG/10 ML VIAL ONE (17:25)
[2022-04-03] MEDS ORDERED: ONDANSETRON 4 MG/2 ML VIAL ONE (17:25)
[2022-04-03] MEDS ORDERED: BUPIVACAINE MPF 0.25% 10 ML VIAL ONE (17:27)
[2022-04-03] MEDS ORDERED: propofoL 200 MG/20 ML VIAL IV ONE (17:27)
[2022-04-03] MEDS ORDERED: LIDOCAINE 2% 5 ML VIAL ONE (17:27)
[2022-04-03] MEDS ORDERED: ETOMIDATE 40 MG/20 ML VIAL IV ONE (17:27)
[2022-04-03] MEDS ORDERED: PHENYLEPHRINE 1 MG/10 ML SYRINGE IV ONE (17:42)
[2022-04-03] MEDS: CHOLECALCIFEROL 5,000 UNIT TABLET PO SCH (19:40)
[2022-04-03] MEDS: allopurinoL 100 MG TABLET PO SCH (19:40)
[2022-04-03] MEDS: ATORVASTATIN 40 MG TABLET PO SCH (19:41)
[2022-04-03] MEDS: MEROPENEM 500 MG in SODIUM CHLORIDE 0.9% 100 ML IV SCH (19:41)
[2022-04-03] MEDS: MELATONIN 3 MG TABLET PO SCH (22:04)
[2022-04-03] MEDS: GABAPENTIN 100 MG CAPSULE PO SCH (22:04)
[2022-04-03] MEDS: ESCITALOPRAM 10 MG TABLET PO SCH (22:04)
[2022-04-04] MEDS: LEVOTHYROXINE 100 MCG TABLET PO SCH (06:50)
[2022-04-04] MEDS: DESITIN 4OZ/NYSTATIN 15 GRAM MIXTURE PASTE TOP SCH ×3 (07:28→21:20)
[2022-04-04 07:31] LABS: Basophils % 0.1 % (0.0-0.8); Eosinophils # 0.1 10*3/uL (0.0-0.87); Eosinophils % 0.4 % (0.00-10.9); Hemoglobin 7.7 GM/DL (12.0-16.0); Immature Granulocytes % 0.9 %; Lymphocytes # 1.1 10*3/uL (1.4-4.0); Lymphocytes % 4.9 % (21.3-54.2); Mean Corpuscular HGB Conc 30.8 GM/DL (32-36); Mean Corpuscular Volume 96.9 FL (87-102); Mean Platelet Volume 11.6 FL (9.6-12.0); Monocytes % 4.5 % (1.7-12.7); NRBC # 0.08 10*3/uL; Neutrophils % 89.2 % (38.7-73.9); Platelet Count 261 T/CUMM (130-400); Red Blood Count 2.58 MC/CUMM (3.8-5.5); Red Cell Distribution Width 17.8 % (9.3-17.3); White Blood Count 21.3 T/CUMM (4-12)
[2022-04-04 07:41] LABS: INR 2.6; PT Patient Result 26.8 SECS (10.1-12.1)
[2022-04-04 07:54] LABS: Hypochromia Slight; Lymphocytes 7 % (20-55); Nucleated Red Blood Cells 1 /100 WBC (0-5); Platelet Estimate Adequate; Total Cells Counted 100
[2022-04-04 07:55] LABS: Albumin 1.6 G/DL (3.4-5.0); Bilirubin,Total 0.5 MG/DL (0.20-1.00); Potassium 4.8 MMOL/L (3.5-5.1); Total Protein 6.1 G/DL (6.4-8.2)
[2022-04-04] MEDS ORDERED: LACTATED RINGERS 1,000 ML IV SCH (10:00)
[2022-04-04] MEDS: MEGESTROL 40 MG TABLET PO SCH (11:02)
[2022-04-04] MEDS: buPROPion 75 MG TABLET PO SCH ×2 (11:02→21:20)
[2022-04-04] MEDS: allopurinoL 100 MG TABLET PO SCH (11:02)
[2022-04-04] MEDS: CHOLECALCIFEROL 5,000 UNIT TABLET PO SCH (11:02)
[2022-04-04] MEDS: DOCUSATE SODIUM 100 MG/10 ML UDCUP PO SCH ×2 (11:02→21:18)
[2022-04-04] MEDS: MIDODRINE 5 MG TABLET PO SCH ×3 (11:02→21:19)
[2022-04-04] MEDS: ASPIRIN EC 81 MG TABLET PO SCH (11:02)
[2022-04-04] MEDS: PANTOPRAZOLE 40 MG TABLET PO SCH (11:02)
[2022-04-04] MEDS: FOLIC ACID 1 MG TABLET PO SCH (11:02)
[2022-04-04] MEDS: QUEtiapine 25 MG TABLET PO SCH (11:02)
[2022-04-04] MEDS: POLYETHYLENE GLYCOL POWDER 17 GM PACK PO SCH (11:03)
[2022-04-04] MEDS: INSULIN LISPRO 100 UNIT/ML SUBCUT SCH ×4 (11:03→21:18)
[2022-04-04] MEDS: ATROPINE 1 % OPH SOLN 5 ML BOTTLE RIGHT EYE SCH ×4 (11:07→21:18)
[2022-04-04] MEDS: ATORVASTATIN 40 MG TABLET PO SCH (17:18)
[2022-04-04] MEDS: MEROPENEM 500 MG in SODIUM CHLORIDE 0.9% 100 ML IV SCH (17:19)
[2022-04-04] MEDS: ESCITALOPRAM 10 MG TABLET PO SCH (21:18)
[2022-04-04] MEDS: MELATONIN 3 MG TABLET PO SCH (21:19)
[2022-04-04] MEDS: GABAPENTIN 100 MG CAPSULE PO SCH (21:19)
[2022-04-04] MEDS ORDERED: VASOPRESSIN 100 UNITS in SODIUM CHLORIDE 0.9% 95 ML IV PRN (23:19)
[2022-04-04] MEDS ORDERED: SODIUM CHLORIDE 0.9% 250 ML IV ONE (23:22)
[2022-04-04] MEDS ORDERED: NOREPINEPHRINE 4 MG/4 ML VIAL IV ONE (23:25)
[2022-04-04] MEDS: HYDROCORTISONE 100 MG VIAL IV SCH (23:36)
[2022-04-05] MEDS: NOREPINEPHRINE 8 MG in SODIUM CHLORIDE 0.9% 242 ML IV PRN (00:08)
[2022-04-05 00:10] LABS: Arterial Base Excess iSTAT 2 MMOL/L (-2.5-2.5); Arterial Bicarbonate iSTAT 28.3 MMOL/L (20-26); Arterial O2 Saturation iSTAT 100 % (95-100); Arterial PCO2 iSTAT 55 MM HG (35-48); Arterial PO2 iSTAT 382 MM HG (80-95); Arterial Total CO2 iSTAT 30 MMO/L (23-27); Arterial pH iSTAT 7.316 (7.35-7.45)
[2022-04-05] MEDS ORDERED: ALBUTEROL 2.5 MG/3 ML NEB RESP TX PRN (00:10)
[2022-04-05] MEDS: ALBUTEROL/IPRATROPIUM 3 ML NEB RESP TX SCH ×4 (00:48→19:16)
[2022-04-05] MEDS: MORPHINE 2 MG/1 ML SYRINGE IV PRN ×3 (03:35→11:51)
[2022-04-05 06:26] LABS: Basophils % 0.1 % (0.0-0.8); Hematocrit 25.8 VOL% (35.7-47.0); Hemoglobin 7.9 GM/DL (12.0-16.0); Immature Granulocytes % 2.5 %; Immature Granulocytes Absolute 0.67 #; Lymphocytes # 0.3 10*3/uL (1.4-4.0); Lymphocytes % 1.1 % (21.3-54.2); Mean Corpuscular HGB Conc 30.6 GM/DL (32-36); Mean Corpuscular Volume 98.5 FL (87-102); Mean Platelet Volume 11.2 FL (9.6-12.0); Monocytes # 0.6 10*3/uL (0.11-0.8); Monocytes % 2.1 % (1.7-12.7); NRBC # 0.07 10*3/uL; Neutrophils % 94.2 % (38.7-73.9); Platelet Count 287 T/CUMM (130-400); Red Blood Count 2.62 MC/CUMM (3.8-5.5); Red Cell Distribution Width 18.3 % (9.3-17.3); White Blood Count 27.1 T/CUMM (4-12)
[2022-04-05] MEDS: HYDROCORTISONE 100 MG VIAL IV SCH ×2 (06:32→16:31)
[2022-04-05 06:38] LABS: INR 3.1
[2022-04-05 06:47] LABS: Hypochromia Slight; Lymphocytes 1 % (20-55); Microcytosis Slight; Platelet Estimate Adequate; Total Cells Counted 100
[2022-04-05 06:53] LABS: Albumin 1.6 G/DL (3.4-5.0); Bilirubin,Total 0.5 MG/DL (0.20-1.00); Calcium 9.2 MG/DL (8.5-10.1); Potassium 4.7 MMOL/L (3.5-5.1); Total Protein 6.4 G/DL (6.4-8.2)
[2022-04-05 11:03] LABS: ABG Base Excess -9.3 MMOL/L (-2.5-2.5); ABG HCO3 16.9 MMOL/L (20-26); ABG Oxygen Saturation 99.3 % (95-100); ABG PCO2 39.9 MM HG (35-48); ABG PH 7.247 (7.35-7.45); ABG TCO2 16.4 MMOL/L (23-27)
[2022-04-05] MEDS ORDERED: SODIUM BICARBONATE 50 MEQ/50 ML SYRINGE IV ONE (12:00)
[2022-04-05] MEDS ORDERED: HEPARIN 10,000 UNIT/10 ML VIAL IV PRN (14:05)
[2022-04-05] MEDS: MEROPENEM 500 MG in SODIUM CHLORIDE 0.9% 100 ML IV SCH (16:31)
[2022-04-05] MEDS ORDERED: MIDAZOLAM 2 MG/2 ML VIAL ONE (18:24)
[2022-04-05] MEDS ORDERED: KETAMINE 500 MG/10 ML VIAL ONE (18:25)
[2022-04-05] MEDS ORDERED: CALCIUM CHLORIDE 1,000 MG/10 ML VIAL IV ONE (18:50)
[2022-04-05] MEDS ORDERED: ONDANSETRON 4 MG/2 ML VIAL IV PRN (19:05)
[2022-04-05] MEDS ORDERED: MEPERIDINE 50 MG/1 ML VIAL IV PRN (19:05)
[2022-04-05] MEDS ORDERED: PROMETHAZINE INJ 25 MG in SODIUM CHLORIDE 0.9% 50 ML IV PRN (19:05)
[2022-04-05] MEDS: HYDROmorphone 1 MG/1 ML SYRINGE IV PRN ×2 (19:10→19:15)
[2022-04-06] MEDS: HYDROCORTISONE 100 MG VIAL IV SCH ×3 (00:04→21:19)
[2022-04-06] MEDS: ALBUTEROL/IPRATROPIUM 3 ML NEB RESP TX SCH ×4 (00:33→19:18)
[2022-04-06 04:20] LABS: Basophils % 0.1 % (0.0-0.8); Hematocrit 25.4 VOL% (35.7-47.0); Hemoglobin 7.9 GM/DL (12.0-16.0); Immature Granulocytes % 3.2 %; Immature Granulocytes Absolute 0.87 #; Lymphocytes # 0.4 10*3/uL (1.4-4.0); Lymphocytes % 1.3 % (21.3-54.2); Mean Corpuscular HGB Conc 31.1 GM/DL (32-36); Mean Corpuscular Volume 98.1 FL (87-102); Mean Platelet Volume 11.2 FL (9.6-12.0); Monocytes # 0.6 10*3/uL (0.11-0.8); Monocytes % 2.3 % (1.7-12.7); NRBC # 0.16 10*3/uL; Neutrophils % 93.1 % (38.7-73.9); Platelet Count 294 T/CUMM (130-400); Red Blood Count 2.59 MC/CUMM (3.8-5.5); Red Cell Distribution Width 18.5 % (9.3-17.3); White Blood Count 27.5 T/CUMM (4-12)
[2022-04-06 04:38] LABS: PT Patient Result 50.3 SECS (10.1-12.1)
[2022-04-06 04:45] LABS: Hypochromia Slight; Lymphocytes 1 % (20-55); Target Cells Slight; Total Cells Counted 100
[2022-04-06 04:46] LABS: Anisocytosis 1+
[2022-04-06 04:49] LABS: Albumin 1.6 G/DL (3.4-5.0); Bilirubin,Total 0.7 MG/DL (0.20-1.00); Calcium 9.5 MG/DL (8.5-10.1); Osmolality,Calculated 292.5 MOS/KG (273-304); Potassium 4.7 MMOL/L (3.5-5.1); Total Protein 6.5 G/DL (6.4-8.2)
[2022-04-06] MEDS: MORPHINE 2 MG/1 ML SYRINGE IV PRN (06:00)
[2022-04-06 06:08] LABS: INR 5.1
[2022-04-06 08:46] LABS: ABG Base Excess -7.2 MMOL/L (-2.5-2.5); ABG HCO3 18.5 MMOL/L (20-26); ABG Oxygen Saturation 99.3 % (95-100); ABG PCO2 41.1 MM HG (35-48); ABG PH 7.276 (7.35-7.45); ABG TCO2 18.1 MMOL/L (23-27)
[2022-04-06] MEDS: INSULIN REGULAR 100 UNIT/ML SUBCUT SCH ×4 (09:51→21:18)
[2022-04-06] MEDS ORDERED: VANCOMYCIN INJ 1,000 MG in SODIUM CHLORIDE 0.9% 250 ML IV PRN (11:08)
[2022-04-06] MEDS: MIDODRINE 5 MG TABLET PO SCH (11:51)
[2022-04-06] MEDS ORDERED: VANCOMYCIN INJ 1,000 MG in SODIUM CHLORIDE 0.9% 250 ML IV ONE (12:00)
[2022-04-06 14:24] LABS: ABG Base Excess -5.6 MMOL/L (-2.5-2.5); ABG HCO3 19.8 MMOL/L (20-26); ABG Oxygen Saturation 99.2 % (95-100); ABG PCO2 43.8 MM HG (35-48); ABG PH 7.285 (7.35-7.45); ABG TCO2 19.6 MMOL/L (23-27)
[2022-04-06 16:05] LABS: PT Patient Result 50.7 SECS (10.1-12.1)
[2022-04-06 16:21] LABS: INR 5.2
[2022-04-06] MEDS: MEROPENEM 500 MG in SODIUM CHLORIDE 0.9% 100 ML IV SCH (16:44)
[2022-04-07] MEDS: ALBUTEROL/IPRATROPIUM 3 ML NEB RESP TX SCH ×4 (00:39→19:22)
[2022-04-07 04:18] LABS: Basophils % 0.1 % (0.0-0.8); Hematocrit 25.5 VOL% (35.7-47.0); Hemoglobin 7.8 GM/DL (12.0-16.0); Immature Granulocytes % 1.5 %; Immature Granulocytes Absolute 0.41 #; Lymphocytes # 0.3 10*3/uL (1.4-4.0); Mean Corpuscular HGB Conc 30.6 GM/DL (32-36); Mean Corpuscular Volume 96.6 FL (87-102); Mean Platelet Volume 11.2 FL (9.6-12.0); Monocytes # 0.9 10*3/uL (0.11-0.8); Monocytes % 3.2 % (1.7-12.7); NRBC # 0.14 10*3/uL; Neutrophils % 94.2 % (38.7-73.9); Platelet Count 312 T/CUMM (130-400); Red Blood Count 2.64 MC/CUMM (3.8-5.5); Red Cell Distribution Width 18.6 % (9.3-17.3); White Blood Count 27.6 T/CUMM (4-12)
[2022-04-07 04:31] LABS: Calcium 9.6 MG/DL (8.5-10.1); Osmolality,Calculated 291.3 MOS/KG (273-304); Potassium 4.2 MMOL/L (3.5-5.1)
[2022-04-07 04:41] LABS: INR 5.1
[2022-04-07 04:54] LABS: Lymphocytes 1 % (20-55); Platelet Estimate Normal; Target Cells Slight; Total Cells Counted 100
[2022-04-07 05:28] LABS: ABG Base Excess -0.1 MMOL/L (-2.5-2.5); ABG HCO3 24.3 MMOL/L (20-26); ABG Oxygen Saturation 99.1 % (95-100); ABG PCO2 53.1 MM HG (35-48); ABG PH 7.308 (7.35-7.45)
[2022-04-07] MEDS: MORPHINE 2 MG/1 ML SYRINGE IV PRN ×4 (07:52→20:23)
[2022-04-07] MEDS: HYDROCORTISONE 100 MG VIAL IV SCH ×2 (08:14→20:12)
[2022-04-07] MEDS: INSULIN REGULAR 100 UNIT/ML SUBCUT SCH ×4 (08:14→20:22)
[2022-04-07] MEDS: MIDODRINE 5 MG TABLET PO SCH (08:14)
[2022-04-07 08:38] LABS: ABG Base Excess -0.2 MMOL/L (-2.5-2.5); ABG HCO3 24.3 MMOL/L (20-26); ABG Oxygen Saturation 99.2 % (95-100); ABG PCO2 54.1 MM HG (35-48); ABG TCO2 25.2 MMOL/L (23-27)
[2022-04-07] MEDS: NOREPINEPHRINE 8 MG in SODIUM CHLORIDE 0.9% 242 ML IV PRN (08:46)
[2022-04-07] MEDS: NYSTATIN CREAM 15 GM TUBE TOP PRN (09:30)
[2022-04-07] MEDS: ZINC OXIDE PASTE 113 GM TUBE TOP PRN (09:30)
[2022-04-07] MEDS: SODIUM HYPOCHLORITE 0.25% IRRIG 473 ML BOTTLE TOP PRN (09:30)
[2022-04-07] MEDS ORDERED: VASOPRESSIN 100 UNITS in SODIUM CHLORIDE 0.9% 95 ML IV PRN (11:01)
[2022-04-07 11:23] LABS: ABG Base Excess -0.4 MMOL/L (-2.5-2.5); ABG HCO3 24.1 MMOL/L (20-26); ABG PCO2 50.2 MM HG (35-48); ABG PH 7.321 (7.35-7.45); ABG TCO2 24.5 MMOL/L (23-27)
[2022-04-07] MEDS: ALBUMIN 25% 12.5 GM/50 ML VIAL IV SCH ×2 (12:00→19:43)
[2022-04-07 12:12] LABS: Bacteria,Urine Many /HPF (Few); RBC,Urine 688 /HPF (0-4); Squamous Epithelial Cell,Urine Many /HPF (0-10)
[2022-04-07 12:15] LABS: Urine Appearance Turbid (Clear); Urine Color Light Yellow (Yellow); Urine pH 6.5 (4.5-8.0)
[2022-04-07 12:17] LABS: Glucose,Urine (UA) Negative (Negative); Ketones,Urine Negative (Negative); Nitrite,Urine Negative (Negative); Protein,Urine 4+ mg/dL (Negative)
[2022-04-07 12:18] LABS: Bilirubin,Urine Negative (Negative); Blood, Urine 3+ mg/dL (Negative); Urine Urobilinogen 0.2 eU/dL (<2.0)
[2022-04-07] MEDS ORDERED: SODIUM CHLORIDE 0.9% 250 ML IV ONE (12:34)
[2022-04-07] MEDS: MEROPENEM 500 MG in SODIUM CHLORIDE 0.9% 100 ML IV SCH (16:45)
[2022-04-07] MEDS ORDERED: VANCOMYCIN INJ 1,000 MG in SODIUM CHLORIDE 0.9% 250 ML IV ONE (17:00)
[2022-04-08] MEDS: ALBUTEROL/IPRATROPIUM 3 ML NEB RESP TX SCH ×4 (00:07→20:09)
[2022-04-08] MEDS: MORPHINE 2 MG/1 ML SYRINGE IV PRN ×3 (02:01→15:10)
[2022-04-08] MEDS: ALBUMIN 25% 12.5 GM/50 ML VIAL IV SCH (03:23)
[2022-04-08 04:27] LABS: ABG Base Excess -4.8 MMOL/L (-2.5-2.5); ABG HCO3 20.4 MMOL/L (20-26); ABG Oxygen Saturation 98.8 % (95-100); ABG PCO2 43.1 MM HG (35-48); ABG PH 7.302 (7.35-7.45); Basophils % 0.1 % (0.0-0.8); Hemoglobin 6.7 GM/DL (12.0-16.0); Immature Granulocytes Absolute 0.22 #; Lymphocytes # 0.2 10*3/uL (1.4-4.0); Lymphocytes % 0.8 % (21.3-54.2); Mean Corpuscular HGB Conc 30.5 GM/DL (32-36); Mean Corpuscular Volume 98.2 FL (87-102); Mean Platelet Volume 11.2 FL (9.6-12.0); Monocytes # 0.7 10*3/uL (0.11-0.8); Monocytes % 3.1 % (1.7-12.7); Platelet Count 239 T/CUMM (130-400); Red Blood Count 2.24 MC/CUMM (3.8-5.5); Red Cell Distribution Width 18.8 % (9.3-17.3); White Blood Count 22.6 T/CUMM (4-12)
[2022-04-08 04:42] LABS: Osmolality,Calculated 293.4 MOS/KG (273-304)
[2022-04-08 05:01] LABS: INR 5.2
[2022-04-08 05:14] LABS: Lymphocytes 2 % (20-55); Platelet Estimate Normal; Total Cells Counted 100
[2022-04-08 05:15] LABS: Target Cells Few
[2022-04-08] MEDS: INSULIN REGULAR 100 UNIT/ML SUBCUT SCH ×4 (08:04→20:53)
[2022-04-08] MEDS: HYDROCORTISONE 100 MG VIAL IV SCH ×2 (08:19→20:53)
[2022-04-08] MEDS: MIDODRINE 5 MG TABLET PO SCH (08:19)
[2022-04-08] MEDS: PANTOPRAZOLE 40 MG VIAL IV SCH (09:32)
[2022-04-08] MEDS ORDERED: SODIUM CHLORIDE 0.9% 1,000 ML IV PRN (10:11)
[2022-04-08] MEDS: SODIUM HYPOCHLORITE 0.25% IRRIG 473 ML BOTTLE TOP PRN (15:51)
[2022-04-08] MEDS: ZINC OXIDE PASTE 113 GM TUBE TOP PRN (15:52)
[2022-04-08] MEDS: NYSTATIN CREAM 15 GM TUBE TOP PRN (15:52)
[2022-04-08] MEDS: MEROPENEM 500 MG in SODIUM CHLORIDE 0.9% 100 ML IV SCH (16:55)
[2022-04-09] MEDS: ALBUTEROL/IPRATROPIUM 3 ML NEB RESP TX SCH ×4 (00:59→19:53)
[2022-04-09 04:24] LABS: ABG Base Excess -0.9 MMOL/L (-2.5-2.5); ABG HCO3 23.7 MMOL/L (20-26); ABG Oxygen Saturation 97.6 % (95-100); ABG PCO2 54.6 MM HG (35-48); ABG PH 7.289 (7.35-7.45); ABG TCO2 24.7 MMOL/L (23-27)
[2022-04-09 04:34] LABS: Basophils % 0.1 % (0.0-0.8); Hematocrit 26.3 VOL% (35.7-47.0); Hemoglobin 7.9 GM/DL (12.0-16.0); Immature Granulocytes % 0.8 %; Immature Granulocytes Absolute 0.21 #; Lymphocytes # 0.2 10*3/uL (1.4-4.0); Lymphocytes % 0.7 % (21.3-54.2); Mean Corpuscular Volume 93.6 FL (87-102); Mean Platelet Volume 11.1 FL (9.6-12.0); Monocytes # 0.6 10*3/uL (0.11-0.8); Monocytes % 2.3 % (1.7-12.7); NRBC # 0.07 10*3/uL; Neutrophils % 96.1 % (38.7-73.9); Platelet Count 232 T/CUMM (130-400); Red Blood Count 2.81 MC/CUMM (3.8-5.5); Red Cell Distribution Width 22.5 % (9.3-17.3)
[2022-04-09 04:45] LABS: Calcium 9.3 MG/DL (8.5-10.1); Osmolality,Calculated 296.7 MOS/KG (273-304); Potassium 3.9 MMOL/L (3.5-5.1)
[2022-04-09 04:57] LABS: Lymphocytes 3 % (20-55); Nucleated Red Blood Cells 1 /100 WBC (0-5); Total Cells Counted 100
[2022-04-09 04:58] LABS: Platelet Estimate Normal; Target Cells Slight
[2022-04-09] MEDS: MORPHINE 2 MG/1 ML SYRINGE IV PRN ×2 (05:56→11:48)
[2022-04-09] MEDS: MIDODRINE 5 MG TABLET PO SCH ×2 (07:59→20:49)
[2022-04-09] MEDS ORDERED: GENTAMICIN INJ 160 MG in SODIUM CHLORIDE 0.9% 100 ML IV PRN (08:21)
[2022-04-09] MEDS: INSULIN REGULAR 100 UNIT/ML SUBCUT SCH ×4 (08:24→21:11)
[2022-04-09] MEDS: PANTOPRAZOLE 40 MG VIAL IV SCH (08:25)
[2022-04-09] MEDS: HYDROCORTISONE 100 MG VIAL IV SCH ×2 (08:26→20:49)
[2022-04-09] MEDS: INSULIN NPH 100 UNIT/ML SUBCUT SCH (08:27)
[2022-04-09] MEDS ORDERED: GENTAMICIN INJ 120 MG/100 ML PREMIX IV SCH (09:00)
[2022-04-09] MEDS ORDERED: GENTAMICIN INJ 240 MG in SODIUM CHLORIDE 0.9% 100 ML IV ONE (09:30)
[2022-04-09] MEDS: SODIUM HYPOCHLORITE 0.25% IRRIG 473 ML BOTTLE TOP PRN (11:48)
[2022-04-09] MEDS: LORazepam 2 MG/1 ML VIAL IV PRN (15:22)
[2022-04-09] MEDS ORDERED: GLUCAGON 1 MG VIAL IM PRN (16:45)
[2022-04-09] MEDS ORDERED: DEXTROSE 10% 250 ML BAG IV PRN (16:45)
[2022-04-09] MEDS: MEROPENEM 500 MG in SODIUM CHLORIDE 0.9% 100 ML IV SCH (17:07)
[2022-04-09] MEDS: NOREPINEPHRINE 8 MG in SODIUM CHLORIDE 0.9% 242 ML IV PRN (19:02)
[2022-04-10] MEDS: MORPHINE 2 MG/1 ML SYRINGE IV PRN ×2 (00:25→17:50)
[2022-04-10] MEDS: ALBUTEROL/IPRATROPIUM 3 ML NEB RESP TX SCH ×4 (01:45→19:19)
[2022-04-10] MEDS: LORazepam 2 MG/1 ML VIAL IV PRN ×2 (01:45→21:35)
[2022-04-10 04:46] LABS: ABG Base Excess -1.8 MMOL/L (-2.5-2.5); ABG HCO3 22.9 MMOL/L (20-26); ABG PCO2 51.2 MM HG (35-48); ABG PH 7.295 (7.35-7.45); ABG TCO2 23.5 MMOL/L (23-27)
[2022-04-10 04:55] LABS: Basophils % 0.1 % (0.0-0.8); Hematocrit 25.9 VOL% (35.7-47.0); Hemoglobin 7.9 GM/DL (12.0-16.0); Immature Granulocytes % 1.2 %; Immature Granulocytes Absolute 0.34 #; Lymphocytes # 0.1 10*3/uL (1.4-4.0); Lymphocytes % 0.4 % (21.3-54.2); Mean Corpuscular HGB Conc 30.5 GM/DL (32-36); Mean Corpuscular Volume 92.8 FL (87-102); Mean Platelet Volume 11.2 FL (9.6-12.0); Monocytes # 0.5 10*3/uL (0.11-0.8); Monocytes % 1.7 % (1.7-12.7); NRBC # 0.15 10*3/uL; Neutrophils % 96.6 % (38.7-73.9); Platelet Count 209 T/CUMM (130-400); Red Blood Count 2.79 MC/CUMM (3.8-5.5); Red Cell Distribution Width 22.5 % (9.3-17.3); White Blood Count 29.4 T/CUMM (4-12)
[2022-04-10 05:05] LABS: Calcium 8.9 MG/DL (8.5-10.1); Osmolality,Calculated 311.8 MOS/KG (273-304); Potassium 4.4 MMOL/L (3.5-5.1)
[2022-04-10 05:08] LABS: INR 4.7; PT Patient Result 46.8 SECS (10.1-12.1)
[2022-04-10 05:19] LABS: Band Neutrophils 1 % (0-10); Hypochromia 1+; Lymphocytes 1 % (20-55); Nucleated Red Blood Cells 2 /100 WBC (0-5); Total Cells Counted 100
[2022-04-10 05:20] LABS: Anisocytosis 1+; Microcytosis 1+; Target Cells Few
[2022-04-10] MEDS: INSULIN NPH 100 UNIT/ML SUBCUT SCH (08:06)
[2022-04-10] MEDS: PANTOPRAZOLE 40 MG VIAL IV SCH (08:07)
[2022-04-10] MEDS: INSULIN REGULAR 100 UNIT/ML SUBCUT SCH ×4 (08:07→21:12)
[2022-04-10] MEDS: HYDROCORTISONE 100 MG VIAL IV SCH ×2 (08:08→21:12)
[2022-04-10] MEDS: MIDODRINE 5 MG TABLET PO SCH (08:09)
[2022-04-10] MEDS: ZINC OXIDE PASTE 113 GM TUBE TOP PRN (12:00)
[2022-04-10] MEDS: MEROPENEM 500 MG in SODIUM CHLORIDE 0.9% 100 ML IV SCH (17:00)
[2022-04-10] MEDS ORDERED: GENTAMICIN INJ 160 MG in SODIUM CHLORIDE 0.9% 100 ML IV ONE (17:00)
[2022-04-11] MEDS: ALBUTEROL/IPRATROPIUM 3 ML NEB RESP TX SCH ×4 (00:23→19:13)
[2022-04-11 04:46] LABS: Basophils % 0.1 % (0.0-0.8); Hematocrit 28.5 VOL% (35.7-47.0); Hemoglobin 8.5 GM/DL (12.0-16.0); Immature Granulocytes % 1.4 %; Lymphocytes # 0.4 10*3/uL (1.4-4.0); Lymphocytes % 1.3 % (21.3-54.2); Mean Corpuscular HGB Conc 29.8 GM/DL (32-36); Mean Corpuscular Volume 95.3 FL (87-102); Mean Platelet Volume 11.7 FL (9.6-12.0); Monocytes # 0.6 10*3/uL (0.11-0.8); Monocytes % 2.1 % (1.7-12.7); NRBC # 0.18 10*3/uL; Neutrophils % 95.1 % (38.7-73.9); Platelet Count 188 T/CUMM (130-400); Red Blood Count 2.99 MC/CUMM (3.8-5.5); Red Cell Distribution Width 22.5 % (9.3-17.3); White Blood Count 28.3 T/CUMM (4-12)
[2022-04-11 04:52] LABS: INR 1.6; PT Patient Result 17.4 SECS (10.1-12.1)
[2022-04-11 05:00] LABS: Calcium 8.6 MG/DL (8.5-10.1); Potassium 4.2 MMOL/L (3.5-5.1)
[2022-04-11] MEDS ORDERED: DEXTROSE 50% 25 GM/50 ML SYRINGE IV ONE (05:05)
[2022-04-11 05:10] LABS: Lymphocytes 3 % (20-55); Total Cells Counted 100
[2022-04-11 05:11] LABS: Hypochromia 1+; Microcytosis 1+; Target Cells Few
[2022-04-11 05:12] LABS: Platelet Estimate Adequate
[2022-04-11] MEDS ORDERED: DEXTROSE 50% 25 GM/50 ML SYRINGE IV STA (05:19)
[2022-04-11] MEDS ORDERED: DEXTROSE 50% 25 GM/50 ML VIAL IV PRN (07:17)
[2022-04-11] MEDS: DEXTROSE 50% 25 GM/50 ML SYRINGE IV PRN (07:23)
[2022-04-11] MEDS ORDERED: INSULIN NPH 100 UNIT/ML SUBCUT SCH (07:30)
[2022-04-11] MEDS: INSULIN REGULAR 100 UNIT/ML SUBCUT SCH ×4 (07:31→23:23)
[2022-04-11] MEDS ORDERED: HYDROCORTISONE 100 MG VIAL IV ONE (07:42)
[2022-04-11] MEDS: NOREPINEPHRINE 8 MG in SODIUM CHLORIDE 0.9% 242 ML IV PRN ×2 (08:06→16:36)
[2022-04-11] MEDS: HYDROCORTISONE 100 MG VIAL IV SCH ×2 (09:04→20:16)
[2022-04-11] MEDS: PANTOPRAZOLE 40 MG VIAL IV SCH (09:04)
[2022-04-11] MEDS ORDERED: MIDAZOLAM 2 MG/2 ML VIAL ONE (13:37)
[2022-04-11] MEDS ORDERED: KETAMINE 500 MG/10 ML VIAL ONE (13:37)
[2022-04-11] MEDS ORDERED: fentaNYL 100 MCG/2 ML VIAL ONE (13:37)
[2022-04-11] MEDS ORDERED: ETOMIDATE 40 MG/20 ML VIAL IV ONE (13:37)
[2022-04-11] MEDS ORDERED: LIDOCAINE 2% 5 ML VIAL ONE (13:37)
[2022-04-11] MEDS ORDERED: SUCCINYLCHOLINE 200 MG/10 ML VIAL ONE (13:38)
[2022-04-11] MEDS: MORPHINE 2 MG/1 ML SYRINGE IV PRN ×2 (13:41→16:25)
[2022-04-11] MEDS ORDERED: MIDAZOLAM 10 MG/2 ML VIAL ONE (14:28)
[2022-04-11] MEDS: MIDAZOLAM 100 MG in SODIUM CHLORIDE 0.9% 80 ML IV PRN (16:00)
[2022-04-11] MEDS ORDERED: NOREPINEPHRINE 4 MG/4 ML VIAL IV ONE (16:27)
[2022-04-11] MEDS: MIDODRINE 5 MG TABLET PO SCH (16:35)
[2022-04-11 16:39] LABS: ABG Base Excess -3.1 MMOL/L (-2.5-2.5); ABG HCO3 21.8 MMOL/L (20-26); ABG Oxygen Saturation 99.7 % (95-100); ABG PCO2 40.9 MM HG (35-48); ABG PH 7.345 (7.35-7.45); ABG TCO2 20.8 MMOL/L (23-27)
[2022-04-11] MEDS: MEROPENEM 500 MG in SODIUM CHLORIDE 0.9% 100 ML IV SCH (17:57)
[2022-04-12] MEDS: ALBUTEROL/IPRATROPIUM 3 ML NEB RESP TX SCH ×5 (00:01→23:44)
[2022-04-12] MEDS: SODIUM HYPOCHLORITE 0.25% IRRIG 473 ML BOTTLE TOP PRN (01:54)
[2022-04-12] MEDS: MIDAZOLAM 100 MG in SODIUM CHLORIDE 0.9% 80 ML IV PRN ×2 (03:10→15:13)
[2022-04-12 04:29] LABS: ABG Base Excess -3.5 MMOL/L (-2.5-2.5); ABG HCO3 21.5 MMOL/L (20-26); ABG Oxygen Saturation 99.6 % (95-100); ABG PCO2 42.6 MM HG (35-48); ABG PH 7.326 (7.35-7.45); ABG TCO2 20.7 MMOL/L (23-27)
[2022-04-12 04:31] LABS: Basophils % 0.1 % (0.0-0.8); Hematocrit 27.1 VOL% (35.7-47.0); Hemoglobin 8.3 GM/DL (12.0-16.0); Immature Granulocytes % 1.6 %; Immature Granulocytes Absolute 0.48 #; Lymphocytes # 0.2 10*3/uL (1.4-4.0); Lymphocytes % 0.6 % (21.3-54.2); Mean Corpuscular HGB Conc 30.6 GM/DL (32-36); Mean Corpuscular Volume 93.4 FL (87-102); Mean Platelet Volume 12.1 FL (9.6-12.0); Monocytes # 0.6 10*3/uL (0.11-0.8); Monocytes % 1.9 % (1.7-12.7); NRBC # 0.17 10*3/uL; Neutrophils % 95.8 % (38.7-73.9); Platelet Count 177 T/CUMM (130-400); Red Cell Distribution Width 22.5 % (9.3-17.3); White Blood Count 30.7 T/CUMM (4-12)
[2022-04-12 04:46] LABS: Calcium 8.7 MG/DL (8.5-10.1); Osmolality,Calculated 313.1 MOS/KG (273-304); Potassium 4.7 MMOL/L (3.5-5.1)
[2022-04-12 04:54] LABS: Hypochromia Slight; Nucleated Red Blood Cells 1 /100 WBC (0-5); Platelet Estimate Adequate; Total Cells Counted 100
[2022-04-12 04:55] LABS: Microcytosis Slight
[2022-04-12 05:17] LABS: INR 1.6; PT Patient Result 17.3 SECS (10.1-12.1)
[2022-04-12] MEDS: INSULIN REGULAR 100 UNIT/ML SUBCUT SCH ×3 (05:53→18:30)
[2022-04-12] MEDS: PANTOPRAZOLE 40 MG VIAL IV SCH (09:18)
[2022-04-12] MEDS: INSULIN GLARGINE 100 UNIT/ML SUBCUT SCH (09:18)
[2022-04-12] MEDS: HYDROCORTISONE 100 MG VIAL IV SCH ×2 (09:18→20:50)
[2022-04-12] MEDS: MIDODRINE 5 MG TABLET PO SCH (09:18)
[2022-04-12] MEDS ORDERED: VANCOMYCIN INJ 1,500 MG in SODIUM CHLORIDE 0.9% 500 ML IV ONE (09:30)
[2022-04-12] MEDS ORDERED: ALBUMIN 25% 25 GM/100 ML VIAL IV ONE ×2 (11:04→11:30)
[2022-04-12] MEDS: MORPHINE 2 MG/1 ML SYRINGE IV PRN ×2 (11:12→17:15)
[2022-04-12] MEDS ORDERED: PHENYLEPHRINE DRIP 40 MG/250 ML PREMIX IV ONE (11:23)
[2022-04-12] MEDS: PHENYLEPHRINE DRIP 40 MG/250 ML PREMIX IV PRN ×3 (11:44→21:26)
[2022-04-12] MEDS ORDERED: GENTAMICIN INJ 160 MG in SODIUM CHLORIDE 0.9% 100 ML IV ONE (17:00)
[2022-04-12] MEDS: MEROPENEM 500 MG in SODIUM CHLORIDE 0.9% 100 ML IV SCH (18:07)
[2022-04-13] MEDS: INSULIN REGULAR 100 UNIT/ML SUBCUT SCH ×4 (00:22→18:39)
[2022-04-13] MEDS: PHENYLEPHRINE DRIP 40 MG/250 ML PREMIX IV PRN ×4 (02:34→22:06)
[2022-04-13] MEDS: MORPHINE 2 MG/1 ML SYRINGE IV PRN (03:04)
[2022-04-13] MEDS: MIDAZOLAM 100 MG in SODIUM CHLORIDE 0.9% 80 ML IV PRN ×2 (03:41→14:41)
[2022-04-13 03:51] LABS: ABG Base Excess 0.5 MMOL/L (-2.5-2.5); ABG HCO3 24.9 MMOL/L (20-26); ABG Oxygen Saturation 98.7 % (95-100); ABG PCO2 43.5 MM HG (35-48)
[2022-04-13 03:52] LABS: Basophils # 0.1 10*3/uL (0.0-0.2); Basophils % 0.2 % (0.0-0.8); Hematocrit 26.6 VOL% (35.7-47.0); Hemoglobin 8.1 GM/DL (12.0-16.0); Immature Granulocytes % 4.3 %; Immature Granulocytes Absolute 1.21 #; Lymphocytes # 0.5 10*3/uL (1.4-4.0); Lymphocytes % 1.6 % (21.3-54.2); Mean Corpuscular HGB Conc 30.5 GM/DL (32-36); Mean Corpuscular Volume 94.3 FL (87-102); Mean Platelet Volume 11.8 FL (9.6-12.0); Monocytes % 3.5 % (1.7-12.7); NRBC # 0.78 10*3/uL; Neutrophils % 90.4 % (38.7-73.9); Platelet Count 218 T/CUMM (130-400); Red Blood Count 2.82 MC/CUMM (3.8-5.5); White Blood Count 28.3 T/CUMM (4-12)
[2022-04-13 04:01] LABS: INR 1.7; PT Patient Result 18.4 SECS (10.1-12.1)
[2022-04-13 04:04] LABS: Calcium 8.5 MG/DL (8.5-10.1); Osmolality,Calculated 297.1 MOS/KG (273-304); Potassium 4.3 MMOL/L (3.5-5.1)
[2022-04-13 04:47] LABS: Hypochromia 1+; Lymphocytes 2 % (20-55); Microcytosis 1+; Nucleated Red Blood Cells 3 /100 WBC (0-5); Platelet Estimate Adequate; Total Cells Counted 100
[2022-04-13 04:48] LABS: Target Cells Slight
[2022-04-13] MEDS: ALBUTEROL/IPRATROPIUM 3 ML NEB RESP TX SCH ×4 (07:30→23:35)
[2022-04-13] MEDS: INSULIN GLARGINE 100 UNIT/ML SUBCUT SCH (08:59)
[2022-04-13] MEDS: MIDODRINE 5 MG TABLET PO SCH (08:59)
[2022-04-13] MEDS: HYDROCORTISONE 100 MG VIAL IV SCH ×2 (08:59→20:41)
[2022-04-13] MEDS: PANTOPRAZOLE 40 MG VIAL IV SCH (09:00)
[2022-04-13] MEDS ORDERED: VANCOMYCIN INJ 1,000 MG in SODIUM CHLORIDE 0.9% 250 ML IV PRN (13:38)
[2022-04-13] MEDS: MEROPENEM 500 MG in SODIUM CHLORIDE 0.9% 100 ML IV SCH (18:39)
[2022-04-14] MEDS: MORPHINE 2 MG/1 ML SYRINGE IV PRN (00:24)
[2022-04-14] MEDS: MIDAZOLAM 100 MG in SODIUM CHLORIDE 0.9% 80 ML IV PRN ×2 (00:31→11:24)
[2022-04-14] MEDS ORDERED: METOPROLOL TARTRATE 5 MG/5 ML VIAL IV ONE (00:40)
[2022-04-14] MEDS: INSULIN REGULAR 100 UNIT/ML SUBCUT SCH ×5 (00:54→23:35)
[2022-04-14] MEDS: PHENYLEPHRINE DRIP 40 MG/250 ML PREMIX IV PRN ×6 (01:20→21:17)
[2022-04-14 04:14] LABS: Basophils # 0.1 10*3/uL (0.0-0.2); Basophils % 0.2 % (0.0-0.8); Hemoglobin 8.1 GM/DL (12.0-16.0); Immature Granulocytes % 4.4 %; Immature Granulocytes Absolute 1.27 #; Lymphocytes # 0.3 10*3/uL (1.4-4.0); Lymphocytes % 1.2 % (21.3-54.2); Mean Corpuscular HGB Conc 31.2 GM/DL (32-36); Mean Corpuscular Volume 92.2 FL (87-102); Mean Platelet Volume 11.4 FL (9.6-12.0); Monocytes # 1.1 10*3/uL (0.11-0.8); Monocytes % 3.8 % (1.7-12.7); NRBC # 1.07 10*3/uL; Neutrophils % 90.4 % (38.7-73.9); Platelet Count 230 T/CUMM (130-400); Red Blood Count 2.82 MC/CUMM (3.8-5.5); Red Cell Distribution Width 22.5 % (9.3-17.3); White Blood Count 28.6 T/CUMM (4-12)
[2022-04-14 04:16] LABS: ABG Base Excess -2.8 MMOL/L (-2.5-2.5); ABG HCO3 22.1 MMOL/L (20-26); ABG PCO2 38.6 MM HG (35-48); ABG PH 7.367 (7.35-7.45); ABG TCO2 20.8 MMOL/L (23-27)
[2022-04-14 04:23] LABS: INR 1.4; PT Patient Result 14.7 SECS (10.1-12.1)
[2022-04-14 04:27] LABS: Calcium 8.3 MG/DL (8.5-10.1); Osmolality,Calculated 305.4 MOS/KG (273-304); Potassium 5.3 MMOL/L (3.5-5.1)
[2022-04-14 04:38] LABS: Band Neutrophils 1 % (0-10); Hypochromia 1+; Lymphocytes 1 % (20-55); Nucleated Red Blood Cells 5 /100 WBC (0-5); Total Cells Counted 100
[2022-04-14 04:39] LABS: Microcytosis 1+; Polychromasia Slight; Target Cells Slight
[2022-04-14] MEDS: ALBUTEROL/IPRATROPIUM 3 ML NEB RESP TX SCH ×3 (07:27→19:35)
[2022-04-14] MEDS: SODIUM HYPOCHLORITE 0.25% IRRIG 473 ML BOTTLE TOP PRN (08:50)
[2022-04-14] MEDS: PANTOPRAZOLE 40 MG VIAL IV SCH (09:20)
[2022-04-14] MEDS: MIDODRINE 5 MG TABLET PO SCH (09:21)
[2022-04-14] MEDS: INSULIN GLARGINE 100 UNIT/ML SUBCUT SCH (09:23)
[2022-04-14] MEDS ORDERED: GENTAMICIN INJ 160 MG in SODIUM CHLORIDE 0.9% 100 ML IV ONE (17:00)
[2022-04-14] MEDS: MEROPENEM 500 MG in SODIUM CHLORIDE 0.9% 100 ML IV SCH (17:07)
[2022-04-14] MEDS: WARFARIN 2.5 MG TABLET PO SCH (17:39)
[2022-04-14] MEDS ORDERED: VANCOMYCIN INJ 1,000 MG in SODIUM CHLORIDE 0.9% 250 ML IV ONE (18:00)
[2022-04-15] MEDS: PHENYLEPHRINE DRIP 40 MG/250 ML PREMIX IV PRN ×8 (00:19→22:02)
[2022-04-15] MEDS: MORPHINE 2 MG/1 ML SYRINGE IV PRN ×2 (02:37→16:56)
[2022-04-15 04:14] LABS: ABG Base Excess 0.4 MMOL/L (-2.5-2.5); ABG HCO3 24.8 MMOL/L (20-26); ABG PCO2 39.3 MM HG (35-48); ABG PH 7.411 (7.35-7.45); ABG TCO2 23.1 MMOL/L (23-27); Basophils # 0.1 10*3/uL (0.0-0.2); Basophils % 0.2 % (0.0-0.8); Eosinophils # 0.1 10*3/uL (0.0-0.87); Eosinophils % 0.6 % (0.00-10.9); Hematocrit 25.7 VOL% (35.7-47.0); Hemoglobin 8.2 GM/DL (12.0-16.0); Immature Granulocytes % 5.2 %; Immature Granulocytes Absolute 1.18 #; Lymphocytes # 1.4 10*3/uL (1.4-4.0); Lymphocytes % 6.1 % (21.3-54.2); Mean Corpuscular HGB Conc 31.9 GM/DL (32-36); Mean Corpuscular Volume 90.8 FL (87-102); Mean Platelet Volume 11.3 FL (9.6-12.0); Monocytes % 4.4 % (1.7-12.7); NRBC # 1.95 10*3/uL; Neutrophils % 83.5 % (38.7-73.9); Platelet Count 232 T/CUMM (130-400); Red Blood Count 2.83 MC/CUMM (3.8-5.5); Red Cell Distribution Width 22.4 % (9.3-17.3); White Blood Count 22.7 T/CUMM (4-12)
[2022-04-15 04:35] LABS: Calcium 8.2 MG/DL (8.5-10.1); Osmolality,Calculated 293.3 MOS/KG (273-304); Potassium 4.6 MMOL/L (3.5-5.1)
[2022-04-15 05:06] LABS: Hypochromia Slight; Lymphocytes 7 % (20-55); Nucleated Red Blood Cells 7 /100 WBC (0-5); Total Cells Counted 100
[2022-04-15 05:07] LABS: Burr Cells Slight; Microcytosis 1+; Polychromasia Slight
[2022-04-15 05:11] LABS: Basophilic Stippling Slight
[2022-04-15] MEDS: INSULIN REGULAR 100 UNIT/ML SUBCUT SCH ×3 (05:14→18:18)
[2022-04-15] MEDS: MIDAZOLAM 100 MG in SODIUM CHLORIDE 0.9% 80 ML IV PRN ×2 (05:15→23:49)
[2022-04-15] MEDS: ALBUTEROL/IPRATROPIUM 3 ML NEB RESP TX SCH ×4 (07:45→19:40)
[2022-04-15] MEDS: INSULIN GLARGINE 100 UNIT/ML SUBCUT SCH (09:19)
[2022-04-15] MEDS: MIDODRINE 5 MG TABLET PO SCH (09:19)
[2022-04-15] MEDS: PANTOPRAZOLE 40 MG VIAL IV SCH (09:19)
[2022-04-15] MEDS: NYSTATIN CREAM 15 GM TUBE TOP PRN (12:15)
[2022-04-15] MEDS: ZINC OXIDE PASTE 113 GM TUBE TOP PRN (12:15)
[2022-04-15] MEDS: SODIUM HYPOCHLORITE 0.25% IRRIG 473 ML BOTTLE TOP PRN (12:15)
[2022-04-15] MEDS: MEROPENEM 500 MG in SODIUM CHLORIDE 0.9% 100 ML IV SCH (16:59)
[2022-04-15] MEDS: WARFARIN 2.5 MG TABLET PO SCH (17:07)
[2022-04-16] MEDS: ALBUTEROL/IPRATROPIUM 3 ML NEB RESP TX SCH ×4 (00:10→18:48)
[2022-04-16] MEDS: INSULIN REGULAR 100 UNIT/ML SUBCUT SCH ×4 (00:21→17:27)
[2022-04-16] MEDS: PHENYLEPHRINE DRIP 40 MG/250 ML PREMIX IV PRN ×9 (00:43→23:59)
[2022-04-16] MEDS: MORPHINE 2 MG/1 ML SYRINGE IV PRN ×2 (00:52→03:59)
[2022-04-16 03:57] LABS: ABG Base Excess -1.2 MMOL/L (-2.5-2.5); ABG HCO3 23.4 MMOL/L (20-26); ABG Oxygen Saturation 96.1 % (95-100); ABG PCO2 37.8 MM HG (35-48); ABG PH 7.399 (7.35-7.45); ABG TCO2 21.9 MMOL/L (23-27); Basophils % 0.1 % (0.0-0.8); Eosinophils # 0.2 10*3/uL (0.0-0.87); Eosinophils % 0.8 % (0.00-10.9); Hematocrit 24.4 VOL% (35.7-47.0); Hemoglobin 7.8 GM/DL (12.0-16.0); Immature Granulocytes % 3.7 %; Immature Granulocytes Absolute 0.79 #; Lymphocytes # 1.1 10*3/uL (1.4-4.0); Lymphocytes % 5.3 % (21.3-54.2); Mean Corpuscular Volume 92.1 FL (87-102); Mean Platelet Volume 11.3 FL (9.6-12.0); Monocytes # 0.9 10*3/uL (0.11-0.8); Monocytes % 4.2 % (1.7-12.7); NRBC # 1.59 10*3/uL; Neutrophils % 85.9 % (38.7-73.9); Platelet Count 242 T/CUMM (130-400); Red Blood Count 2.65 MC/CUMM (3.8-5.5); Red Cell Distribution Width 22.6 % (9.3-17.3); White Blood Count 21.5 T/CUMM (4-12)
[2022-04-16 04:06] LABS: INR 1.4
[2022-04-16 04:11] LABS: Calcium 8.1 MG/DL (8.5-10.1); Osmolality,Calculated 301.3 MOS/KG (273-304); Potassium 5.2 MMOL/L (3.5-5.1)
[2022-04-16 04:19] LABS: Band Neutrophils 2 % (0-10); Eosinophils 2 % (0-10); Lymphocytes 4 % (20-55); Nucleated Red Blood Cells 6 /100 WBC (0-5); Total Cells Counted 100
[2022-04-16 04:20] LABS: Hypochromia Slight; Macrocytosis Slight; Platelet Estimate Adequate; Polychromasia Slight
[2022-04-16] MEDS: PANTOPRAZOLE 40 MG VIAL IV SCH (08:10)
[2022-04-16] MEDS: INSULIN GLARGINE 100 UNIT/ML SUBCUT SCH (08:11)
[2022-04-16] MEDS: MIDODRINE 5 MG TABLET PO SCH (08:11)
[2022-04-16] MEDS ORDERED: POTASSIUM CHLORIDE RIDER 20 MEQ/100 ML PREMIX IV PRN (08:47)
[2022-04-16] MEDS ORDERED: POTASSIUM CHLORIDE RIDER 10 MEQ/100 ML PREMIX IV PRN (08:47)
[2022-04-16] MEDS: ALBUMIN 25% 25 GM/100 ML VIAL IV SCH ×2 (12:31→21:08)
[2022-04-16] MEDS ORDERED: AMIODARONE INJ 150 MG in DEXTROSE 5% 100 ML IV ONE (13:14)
[2022-04-16] MEDS ORDERED: DIGOXIN 0.5 MG/2 ML AMP IV ONE (14:29)
[2022-04-16] MEDS ORDERED: METOPROLOL TARTRATE 5 MG/5 ML VIAL IV ONE (17:09)
[2022-04-16] MEDS: WARFARIN 2.5 MG TABLET PO SCH (17:27)
[2022-04-17] MEDS: INSULIN REGULAR 100 UNIT/ML SUBCUT SCH ×4 (00:06→17:53)
[2022-04-17] MEDS: ALBUTEROL/IPRATROPIUM 3 ML NEB RESP TX SCH ×4 (00:55→18:44)
[2022-04-17 03:21] LABS: Basophils % 0.2 % (0.0-0.8); Eosinophils # 0.2 10*3/uL (0.0-0.87); Eosinophils % 0.6 % (0.00-10.9); Hematocrit 22.5 VOL% (35.7-47.0); Immature Granulocytes % 1.8 %; Immature Granulocytes Absolute 0.46 #; Lymphocytes % 3.8 % (21.3-54.2); Mean Corpuscular HGB Conc 31.1 GM/DL (32-36); Mean Corpuscular Volume 94.5 FL (87-102); Mean Platelet Volume 11.4 FL (9.6-12.0); NRBC # 0.51 10*3/uL; Neutrophils % 89.6 % (38.7-73.9); Platelet Count 216 T/CUMM (130-400); Red Blood Count 2.38 MC/CUMM (3.8-5.5); Red Cell Distribution Width 23.6 % (9.3-17.3)
[2022-04-17 03:22] LABS: ABG Base Excess -1.8 MMOL/L (-2.5-2.5); ABG HCO3 22.9 MMOL/L (20-26); ABG Oxygen Saturation 98.4 % (95-100); ABG PCO2 39.6 MM HG (35-48); ABG PH 7.376 (7.35-7.45); ABG TCO2 21.9 MMOL/L (23-27)
[2022-04-17] MEDS: PHENYLEPHRINE DRIP 40 MG/250 ML PREMIX IV PRN ×5 (03:28→20:52)
[2022-04-17 03:40] LABS: Albumin 2.1 G/DL (3.4-5.0); Bilirubin,Total 0.6 MG/DL (0.20-1.00); Calcium 8.3 MG/DL (8.5-10.1); Osmolality,Calculated 309.4 MOS/KG (273-304); Total Protein 5.4 G/DL (6.4-8.2)
[2022-04-17 03:44] LABS: Potassium 6.5 MMOL/L (3.5-5.1)
[2022-04-17 03:50] LABS: Eosinophils 2 % (0-10); Hypochromia Slight; Lymphocytes 3 % (20-55); Nucleated Red Blood Cells 1 /100 WBC (0-5); Platelet Estimate Adequate; Total Cells Counted 100
[2022-04-17 03:51] LABS: Macrocytosis Slight; Polychromasia Slight
[2022-04-17] MEDS ORDERED: INSULIN REGULAR 10 UNIT, CALCIUM GLUCONATE 1,000 MG in DEXTROSE 10% 250 ML IV ONE (04:10)
[2022-04-17] MEDS: ALBUMIN 25% 25 GM/100 ML VIAL IV SCH (04:44)
[2022-04-17] MEDS: INSULIN GLARGINE 100 UNIT/ML SUBCUT SCH (08:55)
[2022-04-17] MEDS: MIDODRINE 5 MG TABLET PO SCH ×2 (08:55→20:02)
[2022-04-17] MEDS: PANTOPRAZOLE 40 MG VIAL IV SCH (08:55)
[2022-04-17] MEDS ORDERED: DIGOXIN 0.5 MG/2 ML AMP IV ONE (10:50)
[2022-04-17] MEDS ORDERED: DIGOXIN 0.125 MG TABLET PO SCH (13:00)
[2022-04-17] MEDS ORDERED: GENTAMICIN INJ 160 MG in SODIUM CHLORIDE 0.9% 100 ML IV PRN (13:03)
[2022-04-17] MEDS ORDERED: VANCOMYCIN INJ 1,000 MG in SODIUM CHLORIDE 0.9% 250 ML IV ONE (15:00)
[2022-04-17] MEDS ORDERED: GENTAMICIN INJ 160 MG in SODIUM CHLORIDE 0.9% 100 ML IV ONE (17:00)
[2022-04-17] MEDS: WARFARIN 2.5 MG TABLET PO SCH (17:24)
[2022-04-17] MEDS ORDERED: MORPHINE 2 MG/1 ML SYRINGE IV PRN (18:39)
[2022-04-17] MEDS: MORPHINE 2 MG/1 ML SYRINGE IV PRN (19:33)
[2022-04-18] MEDS: INSULIN REGULAR 100 UNIT/ML SUBCUT SCH ×4 (00:47→17:45)
[2022-04-18] MEDS: ALBUTEROL/IPRATROPIUM 3 ML NEB RESP TX SCH ×4 (00:52→19:29)
[2022-04-18] MEDS: PHENYLEPHRINE DRIP 40 MG/250 ML PREMIX IV PRN ×4 (02:36→22:01)
[2022-04-18 04:46] LABS: ABG Base Excess 0.8 MMOL/L (-2.5-2.5); ABG HCO3 25.2 MMOL/L (20-26); ABG Oxygen Saturation 98.6 % (95-100); ABG PCO2 40.3 MM HG (35-48); ABG PH 7.409 (7.35-7.45); ABG TCO2 23.6 MMOL/L (23-27); Basophils % 0.1 % (0.0-0.8); Eosinophils # 0.2 10*3/uL (0.0-0.87); Hematocrit 25.1 VOL% (35.7-47.0); Hemoglobin 7.9 GM/DL (12.0-16.0); Immature Granulocytes Absolute 0.22 #; Lymphocytes # 0.8 10*3/uL (1.4-4.0); Lymphocytes % 3.4 % (21.3-54.2); Mean Corpuscular HGB Conc 31.5 GM/DL (32-36); Mean Corpuscular Volume 91.3 FL (87-102); Mean Platelet Volume 11.9 FL (9.6-12.0); Monocytes # 0.7 10*3/uL (0.11-0.8); Monocytes % 3.2 % (1.7-12.7); NRBC # 0.15 10*3/uL; Neutrophils % 91.3 % (38.7-73.9); Platelet Count 194 T/CUMM (130-400); Red Blood Count 2.75 MC/CUMM (3.8-5.5); Red Cell Distribution Width 22.1 % (9.3-17.3); White Blood Count 22.5 T/CUMM (4-12)
[2022-04-18 04:56] LABS: INR 1.8; PT Patient Result 18.6 SECS (10.1-12.1)
[2022-04-18 05:02] LABS: Calcium 7.8 MG/DL (8.5-10.1); Osmolality,Calculated 295.5 MOS/KG (273-304); Potassium 5.2 MMOL/L (3.5-5.1)
[2022-04-18 05:09] LABS: Lymphocytes 5 % (20-55); Platelet Estimate Adequate; Total Cells Counted 100
[2022-04-18 05:10] LABS: Hypochromia Slight; Macrocytosis Slight; Polychromasia Slight
[2022-04-18] MEDS: MORPHINE 2 MG/1 ML SYRINGE IV PRN ×2 (05:43→12:20)
[2022-04-18] MEDS: ZINC OXIDE PASTE 113 GM TUBE TOP PRN ×2 (06:35→11:45)
[2022-04-18] MEDS: PANTOPRAZOLE 40 MG VIAL IV SCH (08:35)
[2022-04-18] MEDS: INSULIN GLARGINE 100 UNIT/ML SUBCUT SCH (08:35)
[2022-04-18] MEDS: MIDODRINE 5 MG TABLET PO SCH ×2 (08:40→21:50)
[2022-04-18] MEDS: SODIUM HYPOCHLORITE 0.25% IRRIG 473 ML BOTTLE TOP PRN (11:30)
[2022-04-18] MEDS: WARFARIN 2.5 MG TABLET PO SCH (18:10)
[2022-04-18] MEDS: PHENYLEPHRINE INJ 160 MG in SODIUM CHLORIDE 0.9% 234 ML IV PRN (22:01)
[2022-04-19] MEDS: ALBUTEROL/IPRATROPIUM 3 ML NEB RESP TX SCH ×4 (00:31→20:01)
[2022-04-19] MEDS: INSULIN REGULAR 100 UNIT/ML SUBCUT SCH ×4 (01:26→18:10)
[2022-04-19 03:11] LABS: Basophils % 0.2 % (0.0-0.8); Eosinophils # 0.3 10*3/uL (0.0-0.87); Eosinophils % 1.2 % (0.00-10.9); Hematocrit 26.1 VOL% (35.7-47.0); Hemoglobin 8.1 GM/DL (12.0-16.0); Immature Granulocytes Absolute 0.22 #; Lymphocytes # 0.5 10*3/uL (1.4-4.0); Lymphocytes % 2.4 % (21.3-54.2); Mean Corpuscular Volume 91.9 FL (87-102); Mean Platelet Volume 11.6 FL (9.6-12.0); Monocytes # 0.5 10*3/uL (0.11-0.8); Monocytes % 2.3 % (1.7-12.7); NRBC # 0.04 10*3/uL; Neutrophils % 92.9 % (38.7-73.9); Platelet Count 187 T/CUMM (130-400); Red Blood Count 2.84 MC/CUMM (3.8-5.5); Red Cell Distribution Width 22.4 % (9.3-17.3); White Blood Count 21.7 T/CUMM (4-12)
[2022-04-19 03:12] LABS: ABG Base Excess -1.1 MMOL/L (-2.5-2.5); ABG HCO3 23.5 MMOL/L (20-26); ABG Oxygen Saturation 98.8 % (95-100); ABG PCO2 42.5 MM HG (35-48); ABG PH 7.364 (7.35-7.45); ABG TCO2 22.5 MMOL/L (23-27)
[2022-04-19 03:28] LABS: Calcium 8.3 MG/DL (8.5-10.1); Osmolality,Calculated 297.7 MOS/KG (273-304); Potassium 5.2 MMOL/L (3.5-5.1)
[2022-04-19 03:49] LABS: Eosinophils 1 % (0-10); Lymphocytes 2 % (20-55); Platelet Estimate Adequate; Total Cells Counted 100
[2022-04-19 03:50] LABS: Hypochromia Slight; Microcytosis Slight
[2022-04-19] MEDS ORDERED: FUROSEMIDE 40 MG/4 ML VIAL IV ONE (07:30)
[2022-04-19] MEDS ORDERED: VASOPRESSIN 100 UNITS in SODIUM CHLORIDE 0.9% 95 ML IV PRN (08:00)
[2022-04-19] MEDS: PANTOPRAZOLE 40 MG VIAL IV SCH (09:00)
[2022-04-19] MEDS: INSULIN GLARGINE 100 UNIT/ML SUBCUT SCH (09:00)
[2022-04-19] MEDS: MIDODRINE 5 MG TABLET PO SCH ×2 (09:05→20:07)
[2022-04-19] MEDS ORDERED: ALTEPLASE 2 MG VIAL IV ONE (11:30)
[2022-04-19] MEDS: MORPHINE 2 MG/1 ML SYRINGE IV PRN (12:10)
[2022-04-19] MEDS ORDERED: GENTAMICIN INJ 160 MG in SODIUM CHLORIDE 0.9% 100 ML IV ONE (16:00)
[2022-04-19] MEDS ORDERED: VANCOMYCIN INJ 1,000 MG in SODIUM CHLORIDE 0.9% 250 ML IV ONE (17:00)
[2022-04-19] MEDS: WARFARIN 2.5 MG TABLET PO SCH (18:05)
[2022-04-19 19:51] VITALS: BP 121/52
[2022-04-20] MEDS: INSULIN REGULAR 100 UNIT/ML SUBCUT SCH ×4 (00:01→17:55)
[2022-04-20] MEDS: ALBUTEROL/IPRATROPIUM 3 ML NEB RESP TX SCH ×4 (00:51→18:53)
[2022-04-20] MEDS: MORPHINE 2 MG/1 ML SYRINGE IV PRN (03:50)
[2022-04-20 04:09] LABS: Basophils % 0.2 % (0.0-0.8); Eosinophils # 0.2 10*3/uL (0.0-0.87); Eosinophils % 0.8 % (0.00-10.9); Hematocrit 26.1 VOL% (35.7-47.0); Hemoglobin 8.3 GM/DL (12.0-16.0); Immature Granulocytes % 1.3 %; Immature Granulocytes Absolute 0.24 #; Lymphocytes # 0.5 10*3/uL (1.4-4.0); Lymphocytes % 2.5 % (21.3-54.2); Mean Corpuscular HGB Conc 31.8 GM/DL (32-36); Mean Corpuscular Volume 91.9 FL (87-102); Mean Platelet Volume 11.9 FL (9.6-12.0); Monocytes # 0.7 10*3/uL (0.11-0.8); Monocytes % 3.8 % (1.7-12.7); Neutrophils % 91.4 % (38.7-73.9); Platelet Count 173 T/CUMM (130-400); Red Blood Count 2.84 MC/CUMM (3.8-5.5); White Blood Count 18.9 T/CUMM (4-12)
[2022-04-20 04:30] LABS: Eosinophils 1 % (0-10); Lymphocytes 3 % (20-55); Nucleated Red Blood Cells 1 /100 WBC (0-5); Platelet Estimate Adequate; Total Cells Counted 100
[2022-04-20 04:35] LABS: Albumin 1.7 G/DL (3.4-5.0); Bilirubin,Total 0.5 MG/DL (0.20-1.00); Calcium 8.7 MG/DL (8.5-10.1); Osmolality,Calculated 294.8 MOS/KG (273-304); Total Protein 5.3 G/DL (6.4-8.2)
[2022-04-20] MEDS ORDERED: ALTEPLASE 2 MG VIAL ONE (09:16)
[2022-04-20] MEDS: ALTEPLASE 2 MG VIAL INTRACATH ONE ×2 (09:30→10:39)
[2022-04-20] MEDS: PANTOPRAZOLE 40 MG VIAL IV SCH (10:39)
[2022-04-20] MEDS: MIDODRINE 5 MG TABLET PO SCH ×3 (10:39→20:30)
[2022-04-20] MEDS: INSULIN GLARGINE 100 UNIT/ML SUBCUT SCH (12:53)
[2022-04-20] MEDS ORDERED: SODIUM CHLORIDE 0.9% IV SCH (16:30)
[2022-04-20] MEDS ORDERED: MICAFUNGIN IV SCH (16:30)
[2022-04-20] MEDS: PHENYLEPHRINE INJ 160 MG in SODIUM CHLORIDE 0.9% 234 ML IV PRN (17:00)
[2022-04-20] MEDS: cefTRIAXone 1,000 MG in SODIUM CHLORIDE 0.9% 100 ML IV SCH (17:54)
[2022-04-20] MEDS: WARFARIN 2.5 MG TABLET PO SCH (17:55)
[2022-04-20] MEDS: MICAFUNGIN 150 MG in SODIUM CHLORIDE 0.9% 100 ML IV SCH (17:55)
[2022-04-21] MEDS: NYSTATIN CREAM 15 GM TUBE TOP PRN (00:30)
[2022-04-21] MEDS: SODIUM HYPOCHLORITE 0.25% IRRIG 473 ML BOTTLE TOP PRN (00:30)
[2022-04-21] MEDS: ZINC OXIDE PASTE 113 GM TUBE TOP PRN (00:30)
[2022-04-21] MEDS: INSULIN REGULAR 100 UNIT/ML SUBCUT SCH ×4 (00:35→18:55)
[2022-04-21] MEDS: ALBUTEROL/IPRATROPIUM 3 ML NEB RESP TX SCH ×4 (00:55→20:11)
[2022-04-21] MEDS: MORPHINE 2 MG/1 ML SYRINGE IV PRN ×2 (03:30→15:40)
[2022-04-21 03:47] LABS: Basophils % 0.2 % (0.0-0.8); Eosinophils # 0.1 10*3/uL (0.0-0.87); Eosinophils % 0.9 % (0.00-10.9); Hematocrit 24.2 VOL% (35.7-47.0); Hemoglobin 7.6 GM/DL (12.0-16.0); Immature Granulocytes % 0.9 %; Immature Granulocytes Absolute 0.14 #; Lymphocytes # 0.5 10*3/uL (1.4-4.0); Lymphocytes % 3.2 % (21.3-54.2); Mean Corpuscular HGB Conc 31.4 GM/DL (32-36); Mean Platelet Volume 11.5 FL (9.6-12.0); Monocytes # 0.6 10*3/uL (0.11-0.8); Monocytes % 3.8 % (1.7-12.7); NRBC # 0.02 10*3/uL; Platelet Count 181 T/CUMM (130-400); Red Blood Count 2.63 MC/CUMM (3.8-5.5)
[2022-04-21 03:51] LABS: ABG Base Excess -2.6 MMOL/L (-2.5-2.5); ABG HCO3 22.2 MMOL/L (20-26); ABG Oxygen Saturation 96.8 % (95-100); ABG PCO2 41.7 MM HG (35-48); ABG PH 7.347 (7.35-7.45); ABG PO2 94.4 MM HG (80-95); ABG TCO2 21.6 MMOL/L (23-27)
[2022-04-21 04:06] LABS: Band Neutrophils 2 % (0-10); Eosinophils 1 % (0-10); Lymphocytes 3 % (20-55); Nucleated Red Blood Cells 1 /100 WBC (0-5); Total Cells Counted 100
[2022-04-21 04:07] LABS: Hypochromia Slight; Target Cells Slight
[2022-04-21 04:08] LABS: Microcytosis 1+; Polychromasia Slight
[2022-04-21 04:10] LABS: Calcium 8.8 MG/DL (8.5-10.1); Osmolality,Calculated 307.4 MOS/KG (273-304)
[2022-04-21 04:37] LABS: PT Patient Result 30.7 SECS (10.1-12.1)
[2022-04-21] MEDS: INSULIN GLARGINE 100 UNIT/ML SUBCUT SCH (08:32)
[2022-04-21] MEDS: MIDODRINE 5 MG TABLET PO SCH ×4 (08:45→21:25)
[2022-04-21] MEDS: PANTOPRAZOLE 40 MG VIAL IV SCH (08:45)
[2022-04-21] MEDS: MICAFUNGIN 150 MG in SODIUM CHLORIDE 0.9% 100 ML IV SCH (17:50)
[2022-04-21] MEDS: WARFARIN 2.5 MG TABLET PO SCH (18:52)
[2022-04-21] MEDS: cefTRIAXone 1,000 MG in SODIUM CHLORIDE 0.9% 100 ML IV SCH (18:55)
[2022-04-22] MEDS: INSULIN REGULAR 100 UNIT/ML SUBCUT SCH ×5 (00:02→18:18)
[2022-04-22] MEDS: PHENYLEPHRINE INJ 160 MG in SODIUM CHLORIDE 0.9% 234 ML IV PRN (00:29)
[2022-04-22] MEDS: ALBUTEROL/IPRATROPIUM 3 ML NEB RESP TX SCH ×4 (01:50→19:12)
[2022-04-22 03:29] LABS: ABG Base Excess -0.3 MMOL/L (-2.5-2.5); ABG HCO3 24.2 MMOL/L (20-26); ABG Oxygen Saturation 98.8 % (95-100); ABG PCO2 43.9 MM HG (35-48); ABG PH 7.366 (7.35-7.45); ABG TCO2 23.4 MMOL/L (23-27)
[2022-04-22 03:34] LABS: Basophils # 0.1 10*3/uL (0.0-0.2); Basophils % 0.3 % (0.0-0.8); Eosinophils # 0.1 10*3/uL (0.0-0.87); Eosinophils % 0.8 % (0.00-10.9); Hematocrit 24.5 VOL% (35.7-47.0); Hemoglobin 7.6 GM/DL (12.0-16.0); Immature Granulocytes % 1.1 %; Immature Granulocytes Absolute 0.17 #; Lymphocytes # 0.6 10*3/uL (1.4-4.0); Lymphocytes % 4.2 % (21.3-54.2); Mean Corpuscular Volume 93.5 FL (87-102); Monocytes # 0.6 10*3/uL (0.11-0.8); Monocytes % 3.9 % (1.7-12.7); Neutrophils % 89.7 % (38.7-73.9); Platelet Count 186 T/CUMM (130-400); Red Blood Count 2.62 MC/CUMM (3.8-5.5); Red Cell Distribution Width 23.6 % (9.3-17.3); White Blood Count 15.3 T/CUMM (4-12)
[2022-04-22 03:45] LABS: INR 4.3; Partial Thromboplastin Time 60.1 SECS (23.7-32.9)
[2022-04-22 03:54] LABS: Eosinophils 1 % (0-10); Lymphocytes 4 % (20-55); Platelet Estimate Adequate; Total Cells Counted 100
[2022-04-22 03:55] LABS: Hypochromia Slight; Microcytosis Slight
[2022-04-22 04:39] LABS: Calcium 8.5 MG/DL (8.5-10.1); Osmolality,Calculated 299.5 MOS/KG (273-304); Potassium 4.4 MMOL/L (3.5-5.1)
[2022-04-22] MEDS: PANTOPRAZOLE 40 MG VIAL IV SCH (09:08)
[2022-04-22] MEDS: INSULIN GLARGINE 100 UNIT/ML SUBCUT SCH (09:08)
[2022-04-22] MEDS: MIDODRINE 5 MG TABLET PO SCH ×3 (09:09→20:03)
[2022-04-22] MEDS: MORPHINE 2 MG/1 ML SYRINGE IV PRN (16:05)
[2022-04-22] MEDS: MICAFUNGIN 150 MG in SODIUM CHLORIDE 0.9% 100 ML IV SCH (16:50)
[2022-04-22] MEDS: cefTRIAXone 1,000 MG in SODIUM CHLORIDE 0.9% 100 ML IV SCH (18:18)
[2022-04-23] MEDS: INSULIN REGULAR 100 UNIT/ML SUBCUT SCH ×4 (00:08→17:19)
[2022-04-23] MEDS: ALBUTEROL/IPRATROPIUM 3 ML NEB RESP TX SCH ×4 (00:18→19:48)
[2022-04-23 03:59] LABS: Basophils # 0.1 10*3/uL (0.0-0.2); Basophils % 0.3 % (0.0-0.8); Eosinophils # 0.2 10*3/uL (0.0-0.87); Eosinophils % 1.3 % (0.00-10.9); Hematocrit 25.2 VOL% (35.7-47.0); Hemoglobin 7.7 GM/DL (12.0-16.0); Immature Granulocytes % 1.8 %; Immature Granulocytes Absolute 0.26 #; Lymphocytes # 0.9 10*3/uL (1.4-4.0); Lymphocytes % 5.8 % (21.3-54.2); Mean Corpuscular HGB Conc 30.6 GM/DL (32-36); Mean Corpuscular Volume 94.4 FL (87-102); Mean Platelet Volume 10.9 FL (9.6-12.0); Monocytes # 0.6 10*3/uL (0.11-0.8); NRBC # 0.05 10*3/uL; Neutrophils % 86.8 % (38.7-73.9); Platelet Count 205 T/CUMM (130-400); Red Blood Count 2.67 MC/CUMM (3.8-5.5); Red Cell Distribution Width 23.9 % (9.3-17.3); White Blood Count 14.7 T/CUMM (4-12)
[2022-04-23 04:23] LABS: Calcium 8.7 MG/DL (8.5-10.1); Osmolality,Calculated 303.5 MOS/KG (273-304)
[2022-04-23 04:36] LABS: INR 2.7
[2022-04-23] MEDS: INSULIN GLARGINE 100 UNIT/ML SUBCUT SCH (08:17)
[2022-04-23] MEDS: PANTOPRAZOLE 40 MG VIAL IV SCH (08:18)
[2022-04-23] MEDS: MIDODRINE 5 MG TABLET PO SCH ×3 (08:18→20:36)
[2022-04-23] MEDS: NYSTATIN CREAM 15 GM TUBE TOP PRN (12:00)
[2022-04-23] MEDS: ZINC OXIDE PASTE 113 GM TUBE TOP PRN (12:00)
[2022-04-23] MEDS: SODIUM HYPOCHLORITE 0.25% IRRIG 473 ML BOTTLE TOP PRN (12:00)
[2022-04-23] MEDS: MORPHINE 2 MG/1 ML SYRINGE IV PRN (14:25)
[2022-04-23] MEDS: MICAFUNGIN 150 MG in SODIUM CHLORIDE 0.9% 100 ML IV SCH (16:08)
[2022-04-23] MEDS: PHENYLEPHRINE INJ 160 MG in SODIUM CHLORIDE 0.9% 234 ML IV PRN (16:51)
[2022-04-23] MEDS: cefTRIAXone 1,000 MG in SODIUM CHLORIDE 0.9% 100 ML IV SCH (17:19)
[2022-04-23] MEDS: WARFARIN 2.5 MG TABLET PO SCH (17:20)
[2022-04-24] MEDS: INSULIN REGULAR 100 UNIT/ML SUBCUT SCH ×4 (00:35→18:08)
[2022-04-24] MEDS: ALBUTEROL/IPRATROPIUM 3 ML NEB RESP TX SCH ×4 (00:47→19:27)
[2022-04-24 04:10] LABS: Basophils # 0.1 10*3/uL (0.0-0.2); Basophils % 0.4 % (0.0-0.8); Eosinophils # 0.3 10*3/uL (0.0-0.87); Eosinophils % 1.5 % (0.00-10.9); Hematocrit 25.1 VOL% (35.7-47.0); Hemoglobin 7.6 GM/DL (12.0-16.0); Immature Granulocytes % 1.5 %; Immature Granulocytes Absolute 0.25 #; Lymphocytes # 0.7 10*3/uL (1.4-4.0); Lymphocytes % 4.3 % (21.3-54.2); Mean Corpuscular HGB Conc 30.3 GM/DL (32-36); Mean Corpuscular Volume 94.4 FL (87-102); Mean Platelet Volume 10.9 FL (9.6-12.0); Monocytes # 0.5 10*3/uL (0.11-0.8); Monocytes % 3.1 % (1.7-12.7); NRBC # 0.07 10*3/uL; Neutrophils % 89.2 % (38.7-73.9); Platelet Count 206 T/CUMM (130-400); Red Blood Count 2.66 MC/CUMM (3.8-5.5); Red Cell Distribution Width 24.3 % (9.3-17.3); White Blood Count 16.4 T/CUMM (4-12)
[2022-04-24 04:24] LABS: Calcium 8.9 MG/DL (8.5-10.1); Osmolality,Calculated 314.4 MOS/KG (273-304); Potassium 4.1 MMOL/L (3.5-5.1)
[2022-04-24 04:26] LABS: INR 2.1; PT Patient Result 22.2 SECS (10.1-12.1); Partial Thromboplastin Time 52.2 SECS (23.7-32.9)
[2022-04-24 04:31] LABS: Eosinophils 3 % (0-10); Hypochromia Slight; Lymphocytes 5 % (20-55); Platelet Estimate Adequate; Polychromasia Slight; Total Cells Counted 100
[2022-04-24 04:32] LABS: Macrocytosis Slight
[2022-04-24 08:57] LABS: ABG Base Excess -3.8 MMOL/L (-2.5-2.5); ABG HCO3 21.2 MMOL/L (20-26); ABG Oxygen Saturation 98.8 % (95-100); ABG PCO2 41.5 MM HG (35-48); ABG PH 7.329 (7.35-7.45); ABG TCO2 20.5 MMOL/L (23-27)
[2022-04-24] MEDS: INSULIN GLARGINE 100 UNIT/ML SUBCUT SCH (09:02)
[2022-04-24] MEDS: MORPHINE 2 MG/1 ML SYRINGE IV PRN (09:03)
[2022-04-24] MEDS: PANTOPRAZOLE 40 MG VIAL IV SCH (09:03)
[2022-04-24] MEDS: MIDODRINE 5 MG TABLET PO SCH ×3 (09:03→20:23)
[2022-04-24] MEDS: PHENYLEPHRINE DRIP 40 MG/250 ML PREMIX IV PRN (09:21)
[2022-04-24] MEDS: MICAFUNGIN 150 MG in SODIUM CHLORIDE 0.9% 100 ML IV SCH (16:45)
[2022-04-24] MEDS: WARFARIN 2.5 MG TABLET PO SCH (18:08)
[2022-04-24] MEDS: cefTRIAXone 1,000 MG in SODIUM CHLORIDE 0.9% 100 ML IV SCH (18:08)
[2022-04-25] MEDS: INSULIN REGULAR 100 UNIT/ML SUBCUT SCH ×5 (00:23→23:51)
[2022-04-25] MEDS: ALBUTEROL/IPRATROPIUM 3 ML NEB RESP TX SCH ×4 (00:34→19:00)
[2022-04-25 04:37] LABS: Basophils % 0.2 % (0.0-0.8); Eosinophils # 0.2 10*3/uL (0.0-0.87); Eosinophils % 1.3 % (0.00-10.9); Hematocrit 21.9 VOL% (35.7-47.0); Hemoglobin 6.8 GM/DL (12.0-16.0); Immature Granulocytes % 1.3 %; Lymphocytes # 0.6 10*3/uL (1.4-4.0); Lymphocytes % 4.2 % (21.3-54.2); Mean Corpuscular HGB Conc 31.1 GM/DL (32-36); Mean Corpuscular Volume 94.4 FL (87-102); Mean Platelet Volume 11.5 FL (9.6-12.0); Monocytes # 0.4 10*3/uL (0.11-0.8); Monocytes % 2.5 % (1.7-12.7); NRBC # 0.03 10*3/uL; Neutrophils % 90.5 % (38.7-73.9); Platelet Count 183 T/CUMM (130-400); Red Blood Count 2.32 MC/CUMM (3.8-5.5); Red Cell Distribution Width 24.3 % (9.3-17.3); White Blood Count 15.2 T/CUMM (4-12)
[2022-04-25 04:46] LABS: PT Patient Result 21.3 SECS (10.1-12.1)
[2022-04-25 04:54] LABS: Calcium 9.1 MG/DL (8.5-10.1); Osmolality,Calculated 322.5 MOS/KG (273-304); Potassium 4.3 MMOL/L (3.5-5.1)
[2022-04-25 05:14] LABS: Band Neutrophils 1 % (0-10); Eosinophils 2 % (0-10); Lymphocytes 4 % (20-55); Total Cells Counted 100
[2022-04-25 05:15] LABS: Platelet Estimate Adequate
[2022-04-25 05:17] LABS: Hypochromia Slight; Macrocytosis Slight
[2022-04-25] MEDS: MIDODRINE 5 MG TABLET PO SCH ×3 (09:00→20:24)
[2022-04-25] MEDS: PANTOPRAZOLE 40 MG VIAL IV SCH (09:00)
[2022-04-25] MEDS: INSULIN GLARGINE 100 UNIT/ML SUBCUT SCH (09:00)
[2022-04-25] MEDS: SODIUM HYPOCHLORITE 0.25% IRRIG 473 ML BOTTLE TOP PRN (13:05)
[2022-04-25] MEDS ORDERED: ALTEPLASE 2 MG VIAL INTRACATH ONE (14:30)
[2022-04-25] MEDS ORDERED: ALTEPLASE 2 MG VIAL ONE (14:36)
[2022-04-25] MEDS ORDERED: HEPARIN LOCK FLUSH 500 UNIT/5 ML SYRINGE IV ONE (15:29)
[2022-04-25] MEDS: MORPHINE 2 MG/1 ML SYRINGE IV PRN (15:35)
[2022-04-25] MEDS: PHENYLEPHRINE DRIP 40 MG/250 ML PREMIX IV PRN (15:41)
[2022-04-25] MEDS: WARFARIN 2.5 MG TABLET PO SCH (17:50)
[2022-04-25] MEDS: MICAFUNGIN 150 MG in SODIUM CHLORIDE 0.9% 100 ML IV SCH (17:50)
[2022-04-25] MEDS ORDERED: EPOETIN ALFA-EPBX 10,000 UNIT/ML VIAL IV SCH (18:00)
[2022-04-25] MEDS: cefTRIAXone 1,000 MG in SODIUM CHLORIDE 0.9% 100 ML IV SCH (18:58)
[2022-04-26 03:49] LABS: Basophils % 0.3 % (0.0-0.8); Eosinophils # 0.1 10*3/uL (0.0-0.87); Hematocrit 24.8 VOL% (35.7-47.0); Hemoglobin 7.5 GM/DL (12.0-16.0); Immature Granulocytes Absolute 0.14 #; Lymphocytes # 0.4 10*3/uL (1.4-4.0); Lymphocytes % 3.2 % (21.3-54.2); Mean Corpuscular HGB Conc 30.2 GM/DL (32-36); Mean Corpuscular Volume 93.6 FL (87-102); Mean Platelet Volume 11.3 FL (9.6-12.0); Monocytes # 0.3 10*3/uL (0.11-0.8); Monocytes % 2.3 % (1.7-12.7); NRBC # 0.02 10*3/uL; Neutrophils % 92.2 % (38.7-73.9); Platelet Count 210 T/CUMM (130-400); Red Blood Count 2.65 MC/CUMM (3.8-5.5); Red Cell Distribution Width 24.7 % (9.3-17.3); White Blood Count 13.5 T/CUMM (4-12)
[2022-04-26 04:05] LABS: Calcium 9.2 MG/DL (8.5-10.1); Osmolality,Calculated 317.8 MOS/KG (273-304); Potassium 4.6 MMOL/L (3.5-5.1)
[2022-04-26 04:06] LABS: INR 2.6; PT Patient Result 26.9 SECS (10.1-12.1)
[2022-04-26 04:10] LABS: Band Neutrophils 2 % (0-10); Eosinophils 3 % (0-10); Lymphocytes 1 % (20-55); Total Cells Counted 100
[2022-04-26 04:11] LABS: Anisocytosis 1+; Macrocytosis 1+; Polychromasia Slight; Target Cells Slight
[2022-04-26 04:12] LABS: Platelet Estimate Normal
[2022-04-26] MEDS: INSULIN REGULAR 100 UNIT/ML SUBCUT SCH ×4 (05:57→23:25)
[2022-04-26] MEDS: ALBUTEROL/IPRATROPIUM 3 ML NEB RESP TX SCH ×4 (07:10→18:56)
[2022-04-26] MEDS: INSULIN GLARGINE 100 UNIT/ML SUBCUT SCH (08:57)
[2022-04-26] MEDS: PANTOPRAZOLE 40 MG VIAL IV SCH (08:57)
[2022-04-26] MEDS: MIDODRINE 5 MG TABLET PO SCH ×3 (08:58→19:59)
[2022-04-26] MEDS ORDERED: LIDOCAINE 2%/EPI 20 ML VIAL ONE (09:47)
[2022-04-26] MEDS ORDERED: HEPARIN 5,000 UNIT/1 ML VIAL ONE (09:47)
[2022-04-26] MEDS ORDERED: BUPIVACAINE MPF 0.25% 10 ML VIAL ONE (09:47)
[2022-04-26] MEDS ORDERED: LIDOCAINE 2% 5 ML VIAL ONE (09:58)
[2022-04-26] MEDS ORDERED: fentaNYL 100 MCG/2 ML VIAL ONE (09:58)
[2022-04-26] MEDS ORDERED: ROCURONIUM 50 MG/5 ML VIAL IV ONE (09:58)
[2022-04-26] MEDS ORDERED: SUCCINYLCHOLINE 200 MG/10 ML VIAL ONE (09:58)
[2022-04-26] MEDS ORDERED: propofoL 200 MG/20 ML VIAL IV ONE (09:58)
[2022-04-26] MEDS ORDERED: ETOMIDATE 40 MG/20 ML VIAL IV ONE (09:58)
[2022-04-26] MEDS ORDERED: ePHEDrine 50 MG/ML VIAL ONE (10:34)
[2022-04-26] MEDS ORDERED: EPINEPHrine 1 MG/10 ML SYRINGE ONE (10:37)
[2022-04-26] MEDS ORDERED: CALCIUM CHLORIDE 1,000 MG/10 ML VIAL IV ONE ×2 (10:37→11:12)
[2022-04-26 11:08] LABS: Arterial Base Excess iSTAT -9 MMOL/L (-2.5-2.5); Arterial Bicarbonate iSTAT 17.4 MMOL/L (20-26); Arterial O2 Saturation iSTAT 92 % (95-100); Arterial PCO2 iSTAT 41 MM HG (35-48); Arterial PO2 iSTAT 75 MM HG (80-95); Arterial Total CO2 iSTAT 19 MMO/L (23-27); Arterial pH iSTAT 7.234 (7.35-7.45)
[2022-04-26] MEDS ORDERED: SODIUM BICARBONATE 50 MEQ/50 ML VIAL IV ONE (11:12)
[2022-04-26 11:53] LABS: Basophils # 0.1 10*3/uL (0.0-0.2); Basophils % 0.3 % (0.0-0.8); Eosinophils # 0.1 10*3/uL (0.0-0.87); Eosinophils % 0.9 % (0.00-10.9); Hematocrit 24.9 VOL% (35.7-47.0); Hemoglobin 7.7 GM/DL (12.0-16.0); Immature Granulocytes % 1.3 %; Immature Granulocytes Absolute 0.19 #; Lymphocytes % 6.8 % (21.3-54.2); Mean Corpuscular HGB Conc 30.9 GM/DL (32-36); Mean Corpuscular Volume 93.6 FL (87-102); Mean Platelet Volume 11.4 FL (9.6-12.0); Monocytes # 0.5 10*3/uL (0.11-0.8); Monocytes % 3.2 % (1.7-12.7); NRBC # 0.03 10*3/uL; Neutrophils % 87.5 % (38.7-73.9); Platelet Count 227 T/CUMM (130-400); Red Blood Count 2.66 MC/CUMM (3.8-5.5); Red Cell Distribution Width 24.6 % (9.3-17.3); White Blood Count 14.6 T/CUMM (4-12)
[2022-04-26 12:21] LABS: Albumin 1.3 G/DL (3.4-5.0); Bilirubin,Total 0.4 MG/DL (0.20-1.00); Calcium 10.7 MG/DL (8.5-10.1); Osmolality,Calculated 319.7 MOS/KG (273-304); Potassium 4.7 MMOL/L (3.5-5.1); Total Protein 5.6 G/DL (6.4-8.2)
[2022-04-26 12:30] LABS: Band Neutrophils 2 % (0-10); Eosinophils 1 % (0-10); Lymphocytes 6 % (20-55); Nucleated Red Blood Cells 1 /100 WBC (0-5); Total Cells Counted 100
[2022-04-26 12:31] LABS: Anisocytosis Slight; Hypochromia Slight; INR 3.1; Microcytosis Slight; PT Patient Result 31.4 SECS (10.1-12.1); Partial Thromboplastin Time 43.9 SECS (23.7-32.9); Platelet Estimate Adequate
[2022-04-26 12:32] LABS: Macrocytosis Slight; Polychromasia Slight
[2022-04-26] MEDS: PHENYLEPHRINE DRIP 40 MG/250 ML PREMIX IV PRN ×2 (14:19→18:40)
[2022-04-26 14:31] LABS: ABG HCO3 20.3 MMOL/L (20-26); ABG Oxygen Saturation 99.6 % (95-100); ABG PCO2 37.1 MM HG (35-48); ABG PH 7.343 (7.35-7.45); ABG TCO2 18.8 MMOL/L (23-27)
[2022-04-26] MEDS: MICAFUNGIN 150 MG in SODIUM CHLORIDE 0.9% 100 ML IV SCH (16:02)
[2022-04-26] MEDS: MORPHINE 2 MG/1 ML SYRINGE IV PRN (16:25)
[2022-04-26] MEDS: ZINC OXIDE PASTE 113 GM TUBE TOP PRN (16:50)
[2022-04-26] MEDS: SODIUM HYPOCHLORITE 0.25% IRRIG 473 ML BOTTLE TOP PRN (16:50)
[2022-04-26] MEDS: cefTRIAXone 1,000 MG in SODIUM CHLORIDE 0.9% 100 ML IV SCH (18:50)
[2022-04-26] MEDS: DEXTROSE 50% 25 GM/50 ML SYRINGE IV PRN (23:21)
[2022-04-27] MEDS: ALBUTEROL/IPRATROPIUM 3 ML NEB RESP TX SCH ×4 (00:03→19:27)
[2022-04-27] MEDS: MORPHINE 2 MG/1 ML SYRINGE IV PRN (02:39)
[2022-04-27] MEDS: PHENYLEPHRINE DRIP 40 MG/250 ML PREMIX IV PRN ×3 (02:43→20:27)
[2022-04-27 03:44] LABS: ABG Base Excess -5.2 MMOL/L (-2.5-2.5); ABG HCO3 20.1 MMOL/L (20-26); ABG Oxygen Saturation 99.6 % (95-100); ABG PCO2 39.3 MM HG (35-48); ABG PH 7.323 (7.35-7.45); ABG TCO2 18.4 MMOL/L (23-27)
[2022-04-27 04:01] LABS: Basophils % 0.3 % (0.0-0.8); Eosinophils # 0.1 10*3/uL (0.0-0.87); Eosinophils % 0.7 % (0.00-10.9); Hematocrit 25.6 VOL% (35.7-47.0); Hemoglobin 7.9 GM/DL (12.0-16.0); Immature Granulocytes Absolute 0.15 #; Lymphocytes # 0.6 10*3/uL (1.4-4.0); Mean Corpuscular HGB Conc 30.9 GM/DL (32-36); Mean Corpuscular Volume 94.5 FL (87-102); Mean Platelet Volume 11.8 FL (9.6-12.0); Monocytes # 0.5 10*3/uL (0.11-0.8); Monocytes % 3.1 % (1.7-12.7); NRBC # 0.05 10*3/uL; Neutrophils % 90.9 % (38.7-73.9); Platelet Count 245 T/CUMM (130-400); Red Blood Count 2.71 MC/CUMM (3.8-5.5); Red Cell Distribution Width 25.2 % (9.3-17.3); White Blood Count 14.3 T/CUMM (4-12)
[2022-04-27 04:02] LABS: Calcium 9.8 MG/DL (8.5-10.1); Osmolality,Calculated 315.5 MOS/KG (273-304); Potassium 4.5 MMOL/L (3.5-5.1)
[2022-04-27 04:21] LABS: INR 4.2; PT Patient Result 41.9 SECS (10.1-12.1)
[2022-04-27 04:56] LABS: Band Neutrophils 5 % (0-10); Lymphocytes 5 % (20-55); Total Cells Counted 100
[2022-04-27 04:57] LABS: Microcytosis Slight; Polychromasia Slight; Target Cells Slight
[2022-04-27 04:58] LABS: Hypochromia Slight
[2022-04-27] MEDS: INSULIN REGULAR 100 UNIT/ML SUBCUT SCH ×3 (05:13→18:42)
[2022-04-27] MEDS: PANTOPRAZOLE 40 MG VIAL IV SCH (08:48)
[2022-04-27] MEDS: INSULIN GLARGINE 100 UNIT/ML SUBCUT SCH (08:48)
[2022-04-27] MEDS: MIDODRINE 5 MG TABLET PO SCH ×3 (08:49→20:26)
[2022-04-27] MEDS: DEXTROSE 50% 25 GM/50 ML SYRINGE IV PRN ×2 (12:05→13:16)
[2022-04-27 13:40] LABS: HIV Antigen/Antibody Result Nonreactive (Nonreactive)
[2022-04-27] MEDS: MICAFUNGIN 150 MG in SODIUM CHLORIDE 0.9% 100 ML IV SCH (17:43)
[2022-04-27] MEDS: cefTRIAXone 1,000 MG in SODIUM CHLORIDE 0.9% 100 ML IV SCH (18:42)
[2022-04-28] MEDS: INSULIN REGULAR 100 UNIT/ML SUBCUT SCH ×4 (00:09→18:46)
[2022-04-28] MEDS: ALBUTEROL/IPRATROPIUM 3 ML NEB RESP TX SCH ×3 (00:21→18:52)
[2022-04-28] MEDS: PHENYLEPHRINE DRIP 40 MG/250 ML PREMIX IV PRN ×2 (01:01→05:42)
[2022-04-28 03:53] LABS: ABG Base Excess -5.4 MMOL/L (-2.5-2.5); ABG HCO3 19.9 MMOL/L (20-26); ABG Oxygen Saturation 99.2 % (95-100); ABG PCO2 36.4 MM HG (35-48); ABG PH 7.343 (7.35-7.45); ABG TCO2 18.6 MMOL/L (23-27)
[2022-04-28 04:01] LABS: Basophils % 0.2 % (0.0-0.8); Eosinophils # 0.1 10*3/uL (0.0-0.87); Eosinophils % 0.6 % (0.00-10.9); Hematocrit 24.9 VOL% (35.7-47.0); Hemoglobin 7.8 GM/DL (12.0-16.0); Immature Granulocytes % 1.1 %; Immature Granulocytes Absolute 0.17 #; Lymphocytes # 0.5 10*3/uL (1.4-4.0); Lymphocytes % 3.2 % (21.3-54.2); Mean Corpuscular HGB Conc 31.3 GM/DL (32-36); Mean Corpuscular Volume 93.3 FL (87-102); Mean Platelet Volume 11.7 FL (9.6-12.0); Monocytes # 0.5 10*3/uL (0.11-0.8); Monocytes % 3.4 % (1.7-12.7); NRBC # 0.05 10*3/uL; Neutrophils % 91.5 % (38.7-73.9); Platelet Count 226 T/CUMM (130-400); Red Blood Count 2.67 MC/CUMM (3.8-5.5); Red Cell Distribution Width 25.2 % (9.3-17.3); White Blood Count 15.1 T/CUMM (4-12)
[2022-04-28] MEDS: MORPHINE 2 MG/1 ML SYRINGE IV PRN ×3 (04:05→20:10)
[2022-04-28 04:10] LABS: Calcium 9.4 MG/DL (8.5-10.1); Osmolality,Calculated 317.4 MOS/KG (273-304); Potassium 4.6 MMOL/L (3.5-5.1)
[2022-04-28] MEDS: DEXTROSE 50% 25 GM/50 ML SYRINGE IV PRN ×2 (04:16→07:22)
[2022-04-28 04:30] LABS: Hypochromia Slight; Lymphocytes 4 % (20-55); Microcytosis Slight; Nucleated Red Blood Cells 2 /100 WBC (0-5); Platelet Estimate Adequate; Total Cells Counted 100
[2022-04-28 04:53] LABS: PT Patient Result 81.8 SECS (10.1-12.1)
[2022-04-28 05:06] LABS: INR 8.7
[2022-04-28] MEDS: INSULIN GLARGINE 100 UNIT/ML SUBCUT SCH (08:03)
[2022-04-28] MEDS: PANTOPRAZOLE 40 MG VIAL IV SCH (09:38)
[2022-04-28] MEDS: MIDODRINE 5 MG TABLET PO SCH ×2 (09:38→15:01)
[2022-04-28] MEDS: LORazepam 2 MG/1 ML VIAL IV PRN ×2 (18:29→20:11)
[2022-04-29] MEDS: LORazepam 2 MG/1 ML VIAL IV PRN (00:34)
[2022-04-29] MEDS: MORPHINE 2 MG/1 ML SYRINGE IV PRN (00:34)
[2022-05-01 22:15] LABS: Arterial Base Excess iSTAT -11 MMOL/L (-2.5-2.5); Arterial Bicarbonate iSTAT 15.4 MMOL/L (20-26); Arterial O2 Saturation iSTAT 87 % (95-100); Arterial PCO2 iSTAT 36 MM HG (35-48); Arterial PO2 iSTAT 61 MM HG (80-95); Arterial Total CO2 iSTAT 16 MMO/L (23-27)
== END 2022-04-29 00:47 | disposition expired | DRG 853 ==
LOC: SUATTDRO → N.ED 02:32 → N.TELEN 04:49 → SUATTDRO 04:49 → N.TELEN 10:10 → N.ICU 04-04 23:03 → N.5E 04-28 18:45
PROVIDERS: ADMIT Family Medicine; ATTEND Internal Medicine